=== PATIENT | male | born 1935 | race Caucasian/White ===

== ENCOUNTER → 2017-09-23 10:20 | Outpatient (CLI) | payer MEDICARE, OTHER, SELFPAY ==
--- NOTE | 2017-09-23 10:23 | RAD_ITS ---
STUDY: X-RAY - PELVIS AND RIGHT HIP REASON FOR EXAM: Male, 82 years old. Postop one year TECHNIQUE: Radiological exam, hip, unilateral, with pelvis when performed; 2 or 3 views. COMPARISON: June 17, 2017 pelvis x-ray FINDINGS: There is a non-specific bowel gas pattern. There are atherosclerotic vascular calcifications of the pelvic arteries. There is narrowing with cortical sclerosis and osteophyte formation of the sacroiliac joint consistent with degenerative osteoarthritic changes. Normal bilateral superior and inferior pubic rami. Normal pubic symphysis. Normal bilateral ischial tuberosities. There is a right hip arthroplasty with visualized heterotopic bone or soft tissue calcification. There is no evidence of change in the alignment. The alignment is in neutral position. There is mild narrowing of the left hip joint space. There is minimal acetabular spurring. There is degenerative change in the lumbar spine. RAD/Hip 2-3 Views with Pelvis IMPRESSION: Stable right hip arthroplasty no evidence of an acute fracture or significant change since prior study. Electronically Signed: Amanda Ramirez MD at 17:34 EDT Tel , Service support ,
== END ==
PROVIDERS: Family Provider Internal Medicine; PCP Internal Medicine; Visit Provider Orthopaedic Surgery
DX: M16.11 Unilateral primary osteoarthritis, right hip (principal)
CPT/HCPCS: 73502

== ENCOUNTER → 2017-11-07 14:42 | Outpatient (CLI) | payer MEDICARE, OTHER, SELFPAY ==
[2017-11-07 15:30] LABS: Absolute Lymphocyte Count 1.09 X10^3/ul (0.83-4.51); Absolute Neutrophil Count 2.5 X10^3/uL (2.0-7.7); Basophil# 0.01 X10^3/uL; Basophil% 0.2 % (0-1); Eosinophil# 0.08 X10^3/uL; Eosinophils% 1.9 % (0-5); Hematocrit 33.1 % (40-54); Hemoglobin 10.7 g/dl (13.0-16.5); Lymphocyte # 1.09 X10^3/ul (4.0); Lymphocyte % 26.3 % (19-41); Mean Corp Hgb Conc 32.3 g/gl (32-36); Mean Corpuscular Hgb 28.6 pg (27.0-32.0); Mean Corpuscular Volume 88.5 fL (80-94); Mean Platelet Vol. 10.5 fl (6.2-12.0); Monocyte# 0.42 X10^3/uL; Monocyte% 10.1 % (0-10); Neutrophil # 2.54 X10^3/uL (2.7-7.7); Neutrophil % 61.3 % (47-70); Platelet Count 258 K/mm3 (150-450); RBC Distribution Width CV 17.1 % (11.6-14.6); RBC Distribution Width SD 55.1 fl (35.1-43.9); Red Blood Count 3.74 M/mm3 (4.6-6.2); White Blood Count 4.2 K/mm3 (4.4-11.0)
[2017-11-07 15:34] LABS: POSITIVE COUNT NO; POSITIVE DIFFERENTIAL NO; POSITIVE MORPHOLOGY NO
[2017-11-07 16:01] LABS: T4 Total, Thyroxin 5.1 ug/dL (4.5-12.1); Thyroid Stim Hormone (TSH) 1.93 uIU/mL (0.358-3.74)
== END ==
PROVIDERS: Family Provider Internal Medicine; PCP Internal Medicine; Visit Provider Internal Medicine Cardiovascular Disease
DX: D64.9 Anemia, unspecified (principal)
CPT/HCPCS: 36415; 84436; 84443; 85025

== ENCOUNTER → 2017-11-18 09:55 | Outpatient (CLI) | payer MEDICARE, OTHER, SELFPAY ==
--- NOTE | 2017-11-18 09:59 | ECHOD_ITS ---
Reason For Study: DYSPNEA Procedure This was a 2D Doppler, Color Flow transthoracic echocardiogram. Exam performed portable in patient room. Left Ventricle Normal size and thickness. The estimated ejection fraction is 65 %. Stage 1 diastolic dysfunction. No regional wall motion abnormalities noted. Right Ventricle Normal size and thickness. Normal systolic function. Atria Normal left atrium. Normal right atrium. Normal atrial septum. Mitral Valve The mitral valve is structurally normal. No prolapse or stenosis seen. Trivial mitral valve insufficiency. Tricuspid Valve Normal tricuspid valve. Trivial tricuspid valve insufficiency. Right ventricular systolic pressure estimated to be 33 mmHg. Aortic Valve Trisinus/trileaflet aortic valve. Mild (1+) aortic valve insufficiency. Pulmonic Valve Normal pulmonic valve. Trivial pulmonic valve insufficiency. Great Vessels Moderately dilated aortic root. Normal arch. Normal inferior vena cava. Inferior vena cava collapse with sniff. Pericardium/Pleural No pericardial effusion. Medication 22 gauge I.V. with prn adaptor inserted into left arm. Diluted definity 5ml given slow IV push to enhance endocardial definition. MMode/2D Measurements & Calculations LVIDd: 4.9 cm IVSd: 1.2 cm Ao root diam: 4.8 cm LVIDs: 2.6 cm LVPWd: 1.0 cm RVDd: 4.1 cm FS: 48.2 % LAV(MOD-bp): 63.3 ml EDV(MOD-sp4): 165.5 ml EDV(MOD-sp2): 110.9 ml LAV(MOD-bp) Indexed: 31.7 ml/m2 ESV(MOD-sp4): 59.8 ml EF(MOD-sp2): 60.1 % LAV(MOD-sp2): 76.4 ml EF(MOD-sp4): 63.9 % LAV(MOD-sp4): 51.7 ml SV(MOD-sp4): 105.7 ml SV(MOD-sp2): 66.7 ml LA A4 area: 18.9 cm2 RA A4 area: 17.5 cm2 Doppler Measurements & Calculations MV E max hank: 83.1 cm/sec Lat Peak E' Hank: 7.0 cm/sec Med Peak E' Hank: 6.0 cm/sec MV A max hank: 104.6 cm/sec E/E' lat: 11.9 E/E' med: 13.8 MV E/A: 0.79 Ao V2 max: 140.4 cm/sec AI max hank: 454.9 cm/sec LV V1 max: 114.9 cm/sec Ao max P.9 mmHg AI max P.8 mmHg LV V1 max P.3 mmHg AI dec slope: 208.7 cm/sec2 AI P1/2t: 638.3 msec PA V2 max: 75.1 cm/sec PI end-d hank: 92.0 cm/sec TR max hank: 265.2 cm/sec TR max P.2 mmHg Interpretation Summary The estimated ejection fraction is 65 %. Stage 1 diastolic dysfunction. Trivial mitral valve insufficiency. Trivial tricuspid valve insufficiency. Right ventricular systolic pressure estimated to be 33 mmHg. Mild (1+) aortic valve insufficiency. Moderately dilated aortic root. The study was technically difficult. There is no comparison study available. Contrast injection was performed. Ordering Physician: Jaron Kellogg Referring Physician: SKIP LIANG Performed By: Shiela Akers, ANGEL, RVT
== END ==
PROVIDERS: Family Provider Internal Medicine; PCP Internal Medicine; Visit Provider Internal Medicine Cardiovascular Disease
DX: R00.2 Palpitations (principal); R94.31 Abnormal electrocardiogram [ECG] [EKG]
CPT/HCPCS: 93306; Q9957; A4216; C8929

== ENCOUNTER → 2017-12-03 07:20 | Outpatient (CLI) | payer MEDICARE, OTHER, SELFPAY ==
--- NOTE | 2017-12-03 07:22 | CT_ITS ---
STUDY: CT CHEST WITH CONTRAST REASON FOR EXAM: Male, 82 years old. Dilated aortic root. Dyspnea. History of testicular carcinoma. RADIATION DOSAGE (If Supplied By Facility): CTDIvol = ( 18.21 ) mGy, DLP = ( 458.75 ) mGycm TECHNIQUE: Transaxial imaging was performed following intravenous administration of 100 ml of Isovue 300 contrast material. Multiplanar coronal and sagittal images were reformatted. Individualized dose optimization techniques were used for this CT. COMPARISON: None. FINDINGS: Mild degree of bony increase markings at the lung bases suggestive of scarring. Increased linear markings are also seen in the right middle lobe with focal plaque formation along the lateral aspect of the right middle lobe suggestive of scarring. There is no demonstrated pleural abnormality. There are calcifications of the coronary arteries. Normal mediastinum. Normal hilar regions. Normal enhanced pulmonary arteries. There is dilatation of the descending aorta with a transverse dimension of 5.2 cm. There is demineralization of the thoracic spine. There is a 1.5 cm x 1.3 cm cyst in the medial aspect of the right lobe of the liver adjacent to the gallbladder fossa. This also evidence of a 2.7 cm x 1.9 cm cyst in the dome of the right lobe of the liver posteriorly as well as smaller cysts in the anterior aspect of the dome of the right lobe of the liver. Tiny gallstones are seen within the gallbladder lumen. CT/Chest WITH Contrast IMPRESSION: Dilated ascending aorta with a transverse dimension of 5.2 cm. Findings suggestive of scarring at the lung bases and lateral aspect of the right middle lobe. Electronically Signed: Isaiah Arevalo MD at 11:23 EDT Tel [phone], Service support ,
[2017-12-03 07:40] LABS: CREATININE FINGERSTICK 1.2 mg/dL (0.70-1.30)
== END ==
PROVIDERS: Family Provider Internal Medicine; PCP Internal Medicine; Visit Provider Internal Medicine Cardiovascular Disease
DX: I10 Essential (primary) hypertension (principal); D64.9 Anemia, unspecified; R00.2 Palpitations; I77.810 Thoracic aortic ectasia
CPT/HCPCS: 71260; Q9967

== ENCOUNTER → 2017-12-06 12:59 | Outpatient (CLI) | payer MEDICARE, OTHER, SELFPAY ==
--- NOTE | 2017-12-06 13:06 | CDU_ITS ---
Reason For Study: TIA Rt. Velocities/BP Lt. Velocities/BP Prox CCA 65/8 cm/sec. Prox CCA 96/12 cm/sec. Mid CCA 55/7 cm/sec. Mid CCA 63/9 cm/sec. Dist CCA 39/6 cm/sec. Dist CCA 49/8 cm/sec. Prox ICA 40/5 cm/sec. Prox ICA 76/15 cm/sec. Mid ICA 66/17 cm/sec. Mid ICA 66/18 cm/sec. Dist ICA 62/11 cm/sec. Dist ICA 85/20 cm/sec. Rt. ICA/CCA = 1.2. Lt. ICA/CCA = 1.34. Prox ECA 74/1 cm/sec. Prox ECA 84/2 cm/sec. Rt. Vert. 40/7 cm/sec. Lt. Vert. 52/10 cm/sec. Right Extracranial There is intimal thickening but no significant atherosclerotic plaque noted in the right common carotid artery. There is intimal thickening but no significant atherosclerotic plaque noted in the right internal carotid artery. There is intimal thickening but no significant atherosclerotic plaque noted in the right external carotid artery. Antegrade flow is noted in the right vertebral artery. Left Extracranial There is heterogeneous, smooth atherosclerotic plaque noted in the left common carotid artery. There is heterogeneous, irregular atherosclerotic plaque noted in the left internal carotid artery. There is heterogeneous, smooth atherosclerotic plaque noted in the left external carotid artery. Antegrade flow is noted in the left vertebral artery. Procedure Carotid Duplex 40248. Exam performed in department. Interpretation Summary No hemodynamically significant plague or stenosis bilateral internal carotids with minimal smooth plague on the left and <50% stenosis bilaterally. Normal flow bilateral external carotids Patent and antegrade vertebrals bilaterally. Ordering Physician: Jaron Kellogg Referring Physician: Isabelle Ratliff Performed By: Jeni Corrigan, TALIACS, RVT
== END ==
PROVIDERS: Family Provider Internal Medicine; PCP Internal Medicine; Visit Provider Internal Medicine Cardiovascular Disease
DX: R47.01 Aphasia (principal); D64.9 Anemia, unspecified; R00.2 Palpitations; I10 Essential (primary) hypertension; R29.818 Other symptoms and signs involving the nervous system
CPT/HCPCS: 93880

== ENCOUNTER → 2017-12-24 13:30 | Outpatient (CLI) | payer MEDICARE, OTHER, SELFPAY ==
--- NOTE | 2017-12-24 13:45 | STEWCON_ITS ---
Reason For Study: DYSPNEA/SOB Stress Results Protocol: Stress Echocardiogram Maximum Predicted HR: 139 bpm Target HR: 118 bpm% Maximum Pr edicted HR: 91 % DurationHeart Rate Stage (mm:ss) (bpm) BPCom ment BASELINE 61 130/78 5 ML DILUTED DEFINITY USED DURING STRESS KAYLA PROTOCOL- STAGE 1 3:00 10 1 144/70 KAYLA PROTOCOL- STAGE 2 2:21 12 6 / RECOVERY 73 130/78 Stress Duration: 5:21 mm:ss Maximum Stress HR: 126 bpm Baseline Echocardiogram Findings The estimated ejection fraction is 65 %. Stress Echo Wall motion Data Resting WMIntermediate WMStress WM Resting Wall Motion Wall Motion Stress No regional wall motion Basal anteroseptal: Mildly abnormalities noted. hypokinetic. Mid-Anterior : Hypokinetic. EKG Data Normal intervals are noted. The patient exercised according to the regular Kayla protocol for a total duration of 5:21. The maximum heart rate attained was 126 beats per minute. This was 90% of maximum predicted heart rate. The patient exercised into stage 2 of the Kayla protocol. During stress, there were no ST or T wave changes noted to suggest ischemia. No clinical angina was noted. No arrhythmias noted. Interpretation Summary The estimated ejection fraction is 65 %. Basal anteroseptal: Mildly hypokinetic Mid-Anterior : Hypokinetic Abnormal, adequate, treadmill echocardiogram. Positive for ischemia by echocardiographic criteria. The patient developed what appeared to be mid anterior and anteroseptal hypokinesis seen in 2 views at peak exercise. Decreased appropriate blood pressure response to exercise. Average exercise capacity for age. Test terminated due to dyspnea. Poor echo windows requiring Definity contrast agent may make interpretation more challenging. Final LVEF of 50%. Ordering Physician: Jaron Kellogg MD Referring Physician: Jaron Kellogg Performed By: Mary Huff RDCS
== END ==
PROVIDERS: Family Provider Internal Medicine; PCP Internal Medicine; Visit Provider Internal Medicine Cardiovascular Disease
DX: R06.02 Shortness of breath (principal); R06.00 Dyspnea, unspecified
CPT/HCPCS: 93017; 93350; Q9957; A4216; C8928

== ENCOUNTER → 2017-12-27 16:09 | Outpatient (CLI) | payer MEDICARE, OTHER, SELFPAY ==
--- NOTE | 2017-12-27 16:11 | RAD_ITS ---
STUDY: X-RAY CHEST REASON FOR EXAM: Male, 82 years old. Abnormal stress test TECHNIQUE: PA and lateral views of the chest. COMPARISON: None. FINDINGS: There are fibrotic changes of the right lung. There is no demonstrated pleural abnormality. Normal size heart. Normal mediastinum and leo. Normal visualized pulmonary arteries. There are calcified plaques of the aortic arch. Normal visualized thoracic spine. There is deformity of the right fifth rib which may be postsurgical. There is no demonstrated abnormality of the visualized soft tissue structures of the upper abdomen. RAD/Chest PA and Lateral IMPRESSION: Fibrotic changes of the right lung, particularly of the right lung base. Calcified plaques of the aortic arch. Deformity of the right fifth rib which may be postsurgical. No acute cardiopulmonary disease process is seen. Electronically Signed: Bull Riojas MD at 16:33 EDT , Service support ,
== END ==
PROVIDERS: Family Provider Internal Medicine; PCP Internal Medicine; Visit Provider Internal Medicine Cardiovascular Disease
DX: R94.39 Abnormal result of other cardiovascular function study (principal)
CPT/HCPCS: 71046

== ENCOUNTER 2018-01-07 06:58 | Day surgery (SDC) | payer MEDICARE, OTHER, SELFPAY ==
[2017-12-27 17:28] LABS: Hematocrit 32.4 % (40-54); Hemoglobin 10.8 g/dl (13.0-16.5); Mean Corp Hgb Conc 33.3 g/gl (32-36); Mean Corpuscular Hgb 29.9 pg (27.0-32.0); Mean Corpuscular Volume 89.8 fL (80-94); Mean Platelet Vol. 10.9 fl (6.2-12.0); Platelet Count 233 K/mm3 (150-450); RBC Distribution Width CV 15.9 % (11.6-14.6); RBC Distribution Width SD 51.4 fl (35.1-43.9); Red Blood Count 3.61 M/mm3 (4.6-6.2); Scan Indicated on CBC? Y/N NO; White Blood Count 3.7 K/mm3 (4.4-11.0)
[2017-12-27 17:40] LABS: Partial Thromboplast Time 24.4 Seconds (24.1-36.2); Prothrombin Time (Protime)PT. 13.6 SECONDS (11.7-14.9)
[2017-12-27 18:20] LABS: Anion Gap 5 (5-15); BUN 29 mg/dL (7-18); Calcium,Total 9.9 mg/dL (8.5-10.1); Chloride 106 mmol/L (98-107); Creatinine, Serum 1.38 mg/dL (0.70-1.30); EST Glomerular Filtration Rate 52 mL/min (>60); Est Glom Filt Rate - Afr Amer 63 mL/min (>60); Glucose 91 mg/dL (74-106); Potassium 5.3 mmol/L (3.5-5.1); Sodium Level 138 mmol/L (136-145)
[2018-01-06 09:52] VITALS: BMI 28.3
[2018-01-07 07:11] LABS: Prothrombin Time Fingerstick 13.5 SEC (11.9-14.4)
--- NOTE | 2018-01-07 09:12 | CL.D_ITS ---
Patient Name: TYRON COON Study Date: 01/07/2018 Performing: Jaron Kellogg MD Ht: 68.89 inches 175 cm : 1935 Wt: 191.8 lbs 87 kg Age: 83 Gender: male BSA: 2.03 PROCEDURE(S) PERFORMED VN96-GUS/COR/LV DC11-AO ROOT ANGIO WITH HEART CATH CLINICAL PROFILE AND INDICATIONS Indications: New Onset Angina <= 2 months, Suspected CAD, Pre-Operative Evaluation Heart Failure: None Stress/Imaging Stress Echocardiogram: Yes Result: Positive Intermediate RiskStress Echocardiogram : Positive Intermediate Risk Angina Classification Anginal Classification w/in 2 Weeks: CCS III CAD Presentations: Symptom unlikely to be ischemic. Comorbidities/Risk Factors: Hypertension Dyslipidemia Peripheral Arterial Disease CONCLUSIONS Non obstructive coronary arteries Normal LV size, wall motion,and systolic function Elevated Left Ventricular End Diastolic Pressure Aortic Root dilated RECOMMENDATIONS Risk factor modification Medical therapy vs. Surgical Intervention for aortic root; pt to meet with Dr Earl in 2 weeks. start Imdur 30mg po daily for HTN d/c brilinta No PCI or CABG required at this time. DESCRIPTION OF PROCEDURE The patient arrived to the procedure lab. The risks and benefits of the procedure as well as a full d escription of our services here and current unavailability of surgical backup were fully explained to the patient and/or their significant other prior to the catheterization. The Timeout was completed, verifying the correct patient and procedure. The patient's procedural site was prepped and draped in the usual fashion. Local anesthetic was given subcutaneously to left groin region with Lidocaine 2%. Using a modified Seldinger technique, arterial access was obtained via the left femoral artery, a 4Fr sheath was inserted Left Coronary Artery selective angiography was performed in multiple views usin g a 4 Fr. JL5 catheter. Right Coronary Artery selective angiography was then performed in multiple vi ews using a 4 Fr. 3DRC catheter. Left Ventriculography was performed in MCKEON projection using a 4 Fr. Pigtail catheter.The arterial sheath was pulled and manual compression applied until hemostasis is ac hieved. CORONARY ANGIOGRAPHY DOMINANCE: Right Dominant LEFT MAIN: 20 ostial % Stenosis LEFT ANTERIOR DECENDING ARTERY: Mild luminal irregularities less than 30% CIRCUMFLEX ARTERY: Mild luminal irregularities less than 30% RIGHT CORONARY ARTERY: Mild luminal irregularities less than 30% PROX RCA: 35 % Stenosis RT PDA: Proximal - Mild luminal irregularities less than 30% COMPLICATIONS No Complications PROCEDURE MEDICATIONS Oxygen: 2 L/min via nasal cannula Nitro 200 mcg IC 01/07/2018 08:55:36 IV Fluids: .9 NaCl IV started @ 200 ml/hr-500cc given 01/07/2018 08:10:26 SUMMARY OF HEMODYNAMIC DATA Time AIR REST ECG 07:28:19 AO 172/66 (104) SA 08:46:11 LV 168/-8, 14 08:54:26 LV 166/-8, 14 08:54:33 LVp 164/-12, 14 08:54:39 AOp 165/61 (99) 08:54:44 Signed By Jaron Kellogg MD On 01/07/2018 09:11:47 Jaron Kellogg MD
== END 2018-01-07 13:22 | disposition home or self-care (01) ==
PROVIDERS: Family Provider Internal Medicine; PCP Internal Medicine; Visit Provider Internal Medicine Cardiovascular Disease
DX: I25.10 Atherosclerotic heart disease of native coronary artery without angina pectoris (principal); I48.0 Paroxysmal atrial fibrillation; R94.39 Abnormal result of other cardiovascular function study; I44.0 Atrioventricular block, first degree; I71.2 Thoracic aortic aneurysm, without rupture; I35.8 Other nonrheumatic aortic valve disorders; I10 Essential (primary) hypertension; M35.3 Polymyalgia rheumatica; I73.9 Peripheral vascular disease, unspecified; D86.9 Sarcoidosis, unspecified; D64.9 Anemia, unspecified; M19.90 Unspecified osteoarthritis, unspecified site; Z79.82 Long term (current) use of aspirin; Z79.899 Other long term (current) drug therapy; Z85.47 Personal history of malignant neoplasm of testis; Z92.3 Personal history of irradiation; Z90.79 Acquired absence of other genital organ(s); Z95.820 Peripheral vascular angioplasty status with implants and grafts
CPT/HCPCS: 36415; 36416; 80048; 85027; 85610; 85730; 93458; 93567; J7030; C1769; C1894; Q9967

== ENCOUNTER → 2018-01-17 11:11 | Outpatient (CLI) | payer MEDICARE, OTHER, SELFPAY ==
[2018-01-17 12:04] LABS: International Normalized Ratio 1.1; Prothrombin Time (Protime)PT. 14.1 SECONDS (11.7-14.9)
== END ==
PROVIDERS: Family Provider Internal Medicine; PCP Internal Medicine; Visit Provider Internal Medicine Cardiovascular Disease
DX: I48.0 Paroxysmal atrial fibrillation (principal); Z79.01 Long term (current) use of anticoagulants
CPT/HCPCS: 36415; 85610

== ENCOUNTER 2018-01-31 10:12 | Outpatient (RCR) | payer MEDICARE, OTHER, SELFPAY ==
[2018-01-24 12:54] LABS: Prothrombin Time (Protime)PT. 13.5 SECONDS (11.7-14.9)
[2018-01-31 10:50] LABS: International Normalized Ratio 1.2; Prothrombin Time (Protime)PT. 15.3 SECONDS (11.7-14.9)
== END 2018-01-31 12:00 | disposition home or self-care (01) ==
LOC: LAB 10:12
PROVIDERS: Family Provider Internal Medicine; PCP Internal Medicine; Visit Provider Internal Medicine Cardiovascular Disease
DX: I48.0 Paroxysmal atrial fibrillation (principal); Z79.01 Long term (current) use of anticoagulants
CPT/HCPCS: 36415; 85610

== ENCOUNTER 2018-02-18 13:13 | Outpatient (RCR) | payer MEDICARE, OTHER, SELFPAY ==
[2018-02-18 13:58] LABS: International Normalized Ratio 1.6; Prothrombin Time (Protime)PT. 18.9 SECONDS (11.7-14.9)
== END 2018-02-18 15:00 | disposition home or self-care (01) ==
LOC: LAB 13:13
PROVIDERS: Family Provider Internal Medicine; PCP Internal Medicine; Visit Provider Internal Medicine Cardiovascular Disease
DX: I48.0 Paroxysmal atrial fibrillation (principal); Z79.01 Long term (current) use of anticoagulants
CPT/HCPCS: 36415; 85610

== ENCOUNTER 2018-04-04 10:50 | Outpatient (RCR) | payer MEDICARE, OTHER, SELFPAY ==
[2018-03-21 11:26] LABS: International Normalized Ratio 2.2; Prothrombin Time (Protime)PT. 24.5 SECONDS (11.7-14.9)
[2018-04-04 12:19] LABS: International Normalized Ratio 1.9; Prothrombin Time (Protime)PT. 21.4 SECONDS (11.7-14.9)
== END 2018-04-04 12:00 | disposition home or self-care (01) ==
LOC: LAB 10:50
PROVIDERS: Family Provider Internal Medicine; PCP Internal Medicine; Visit Provider Internal Medicine Cardiovascular Disease
DX: I48.0 Paroxysmal atrial fibrillation (principal); Z79.01 Long term (current) use of anticoagulants
CPT/HCPCS: 36415; 85610

== ENCOUNTER → 2018-04-10 09:49 | Outpatient (CLI) | payer MEDICARE, OTHER, SELFPAY ==
--- NOTE | 2018-04-10 13:32 | PFTCOMP ---
COMPLETE PULMONARY FUNCTION TEST INTERPRETATION Brief HPI: Patient is an 83 year old male, currently under the care of Dr. Kellogg, who presents to [facility] for complete pulmonary function tests secondary to diagnosis of dyspnea on exertion. Respiratory therapist reports good effort and reproducible results. Interpretation: Forced expiration spirometry shows no large airways obstructive ventilatory defect with an FEV1 of 90% predicted. There is no significant bronchodilator response by strict ATS criteria. Spirograms are of good quality and plateau slowly, indicating slowly emptying areas of the lungs. The respiratory flow volume loop shows decreased expiratory flow rates at high lung volumes consistent with small airways obstruction. Lung volumes by body plethysmography show a normal total lung capacity at 6 L, 103% predicted. All other lung volumes are within normal limits. Diffusion capacity by carbon monoxide is normal at 87% predicted. The airway resistance is slightly elevated. No previous pulmonary function tests were available for review. Impression: These pulmonary function tests are grossly within normal limits. However, there are some subtle signs of small airways obstruction. Consider bronchoprovocation study if asthma is a consideration.
== END ==
PROVIDERS: Family Provider Internal Medicine; PCP Internal Medicine; Referring Provider Internal Medicine Cardiovascular Disease; Visit Provider Internal Medicine Cardiovascular Disease
DX: I48.0 Paroxysmal atrial fibrillation (principal); R06.09 Other forms of dyspnea
CPT/HCPCS: 94060; 94726; 94729

== ENCOUNTER 2018-04-25 10:09 | Outpatient (RCR) | payer MEDICARE, OTHER, SELFPAY ==
[2018-04-11 12:03] LABS: International Normalized Ratio 2.1; Prothrombin Time (Protime)PT. 23.9 SECONDS (11.7-14.9)
[2018-04-25 10:43] LABS: International Normalized Ratio 2.1; Prothrombin Time (Protime)PT. 23.8 SECONDS (11.7-14.9)
== END 2018-04-25 12:00 | disposition home or self-care (01) ==
LOC: LAB 10:09
PROVIDERS: Family Provider Internal Medicine; PCP Internal Medicine; Referring Provider Internal Medicine Cardiovascular Disease; Visit Provider Internal Medicine Cardiovascular Disease
DX: I48.0 Paroxysmal atrial fibrillation (principal); Z79.01 Long term (current) use of anticoagulants
CPT/HCPCS: 36415; 85610

== ENCOUNTER 2018-06-06 10:23 | Outpatient (RCR) | payer MEDICARE, OTHER, SELFPAY ==
[2018-05-16 15:48] LABS: International Normalized Ratio 1.8; Prothrombin Time (Protime)PT. 20.6 SECONDS (11.7-14.9)
[2018-05-23 12:51] LABS: International Normalized Ratio 1.9; Prothrombin Time (Protime)PT. 21.9 SECONDS (11.7-14.9)
[2018-06-06 11:01] LABS: Prothrombin Time (Protime)PT. 31.3 SECONDS (11.7-14.9)
[2018-06-06 13:10] LABS: Anion Gap 6 (5-15); BUN 25 mg/dL (7-18); BUN/Creat Ratio 18.9 RATIO (10-20); Calcium,Total 9.9 mg/dL (8.5-10.1); Chloride 106 mmol/L (98-107); Creatinine, Serum 1.32 mg/dL (0.70-1.30); EST Glomerular Filtration Rate 55 mL/min (>60); Est Glom Filt Rate - Afr Amer 67 mL/min (>60); Glucose 57 mg/dL (74-106); Potassium 5.3 mmol/L (3.5-5.1); Sodium Level 138 mmol/L (136-145)
== END 2018-06-06 11:16 | disposition home or self-care (01) ==
LOC: LAB 10:23
PROVIDERS: Family Provider Internal Medicine; PCP Internal Medicine; Referring Provider Internal Medicine Cardiovascular Disease; Visit Provider Internal Medicine Cardiovascular Disease
DX: I48.0 Paroxysmal atrial fibrillation (principal); Z79.01 Long term (current) use of anticoagulants
CPT/HCPCS: 36415; 80048; 85610

== ENCOUNTER 2018-06-27 09:59 | Outpatient (RCR) | payer MEDICARE, OTHER, SELFPAY ==
[2018-03-21 10:56] VITALS: BMI 28.9
[2018-06-20 11:20] LABS: International Normalized Ratio 2.1; Prothrombin Time (Protime)PT. 23.5 SECONDS (11.7-14.9)
[2018-06-27 11:22] LABS: International Normalized Ratio 2.4; Prothrombin Time (Protime)PT. 26.1 SECONDS (11.7-14.9)
--- OUTSIDE RECORDS SUMMARY | 2018-08-06 01:04 | XMS RPT_ITS ---
:1935 Author Organization OHIP Support Name Relationship Address Phone CAVINDISH, JACINDA Unavailable [address] + [place] [address] R Unavailable Unavailable Unavailable CAVINDISH, JACINDA Unavailable [address] + [place] [address] R Unavailable Unavailable Unavailable CAVINDISH, JACINDA Unavailable [address] + [place] [address] R Unavailable Unavailable Unavailable CAVINDISH, JACINDA Unavailable [address] + [place] [address] R Unavailable Unavailable Unavailable CAVINDISH, JACINDA Unavailable [address] + [place] [address] R Unavailable Unavailable Unavailable CAVINDISH, JACINDA Unavailable [address] + [place] [address] R Unavailable Unavailable Unavailable CAVINDISH, JACINDA Unavailable [address] + [place] [address] R Unavailable Unavailable Unavailable CAVINDISH, JACINDA Unavailable [address] + [place] [address] R Unavailable Unavailable Unavailable CAVINDISH, JACINDA Unavailable [address] + [place] [address] R Unavailable Unavailable Unavailable CAVINDISH, JACINDA Unavailable [address] + [place] [address] R Unavailable Unavailable Unavailable CAVINDISH, JACINDA Unavailable [address] + [place] [address] R Unavailable Unavailable Unavailable CAVINDISH, JACINDA Unavailable [address] + [place] [address] R Unavailable Unavailable Unavailable CAVINDISH, JACINDA Unavailable [address] + [place] [address] R Unavailable Unavailable Unavailable CAVINDISH, JACINDA Unavailable [address] + [place] [address] R Unavailable Unavailable Unavailable CAVINDISH, JACINDA Unavailable [address] + [place] [address] R Unavailable Unavailable Unavailable CAVINDISH, JACINDA Unavailable [address] + [place] [address] R Unavailable Unavailable Unavailable CAVINDISH, JACINDA Unavailable [address] + [place] [address] R Unavailable Unavailable Unavailable CAVINDISH, JACINDA Unavailable [address] + [place] [address] R Unavailable Unavailable Unavailable CAVINDISH, JACINDA Unavailable [address] + [place] [address] R Unavailable Unavailable Unavailable CAVINDISH, JACINDA Unavailable [address] + [place] [address] R Unavailable Unavailable Unavailable CAVINDISH, JACINDA Unavailable [address] + [place] [address] R Unavailable Unavailable Unavailable CAVINDISH, JACINDA Unavailable [address] + [place] [address] R Unavailable Unavailable Unavailable CAVINDISH, JACINDA Unavailable [address] + [place] [address] R Unavailable Unavailable Unavailable CAVINDISH, JACINDA Unavailable [address] + [place] [address] R Unavailable Unavailable Unavailable CAVINDISH, JACINDA Unavailable [address] + [place] [address] R Unavailable Unavailable Unavailable CAVINDISH, JACINDA Unavailable [address] + [place] [address] R Unavailable Unavailable Unavailable CAVINDISH, JACINDA Unavailable [address] + [place] [address] R Unavailable Unavailable Unavailable CAVINDISH, JACINDA Unavailable [address] + [place] [address] R Unavailable Unavailable Unavailable KATHRIN COLT GALO AYUSH Unavailable [address] + [place] [address] CAVINDISH, JACINDA Unavailable [address] + [place] [address] R Unavailable Unavailable Unavailable KATHRIN COLT GALO AYUSH Unavailable [address] + [place] [address] CAVINDISH, JACINDA Unavailable [address] + [place] [address] GREGORY, KATHRIN Unavailable [address] + [place] [address] R Unavailable Unavailable Unavailable CAVINDISH, JACINDA Unavailable [address] + [place] [address] R Unavailable Unavailable Unavailable R Unavailable Unavailable Unavailable CAVINDISH, JACINDA Unavailable [address] + [place] [address] GREGORY, KATHRIN Unavailable [address] + [place] [address] R Unavailable Unavailable Unavailable Care Team Providers Name Role Phone Henrry Moreland Attending Unavailable Talampas, Skip Referring Unavailable Talampas, Skip Primary Care Unavailable Jaron Kellogg Attending Unavailable Jaron Kellogg Referring Unavailable Talampas, Skip Primary Care Unavailable JUAN M GONZALEZ Consulting Unavailable Henrry Moreland Attending Unavailable Talampas, Skip Primary Care Unavailable Blanca Zaragoza Attending Unavailable Jaron Kellogg Attending Unavailable Talampas, Skip Referring Unavailable Talampas, Skip Primary Care Unavailable Jaron Kellogg Attending Unavailable Jaron Kellogg Referring Unavailable Talampas, Skip Primary Care Unavailable Jaron Kellogg Attending Unavailable Jaron Kellogg Referring Unavailable Talampas, Skip Primary Care Unavailable Jaron Kellogg Attending Unavailable Jaron Kellogg Referring Unavailable Talampas, Skip Primary Care Unavailable Jaron Kellogg Attending Unavailable Jaron Kellogg Referring Unavailable Talampas, Skip Primary Care Unavailable Jaron Kellogg Attending Unavailable Jaron Kellogg Referring Unavailable Talampas, Skip Primary Care Unavailable Jaron Kellogg Attending Unavailable Jaron Kellogg Attending Unavailable Valdez, Jaron Referring Unavailable Talampas, Skip Primary Care Unavailable Jaron Kellogg Attending Unavailable Talampas, Skip Referring Unavailable Talampas, Skip Primary Care Unavailable Jaron Kellogg Attending Unavailable Talampas, Skip Referring Unavailable Talampas, Skip Primary Care Unavailable Jaron Kellogg Attending Unavailable Kellogg, Jaron Referring Unavailable Talampas, Skip Primary Care Unavailable Jaron Kellogg Attending Unavailable Jaron Kellogg Referring Unavailable Talampas, Skip Primary Care Unavailable Blanca Zaragoza Attending Unavailable Aaron Barrientos Attending Unavailable Jaron Kellogg Attending Unavailable Kellogg, Jaron Referring Unavailable Talampas, Skip Primary Care Unavailable Jaron Kellogg Attending Unavailable Jaron Kellogg Attending Unavailable Kellogg, Jaron Referring Unavailable Talampas, Skip Primary Care Unavailable Jaron Kellogg Attending Unavailable Jaron Kellogg Attending Unavailable Kellogg, Jaron Referring Unavailable Talampas, Skip Primary Care Unavailable Jaron Kellogg Attending Unavailable Jaron Kellogg Attending Unavailable Jaron Kellogg Referring Unavailable Talampas, Skip Primary Care Unavailable Jaron Kellogg Attending Unavailable Talampas, Skip Referring Unavailable Talampas, Skip Primary Care Unavailable Chandana Corrigan Attending Unavailable Jaron Kellogg Attending Unavailable Kellogg, Jaron Referring Unavailable Talampas, Skip Primary Care Unavailable Jaron Kellogg Attending Unavailable Kellogg, Jaron Referring Unavailable Talampas, Skip Primary Care Unavailable Mateus Yao Attending Unavailable Kellogg, Jaron Referring Unavailable Jaron Kellogg Attending Unavailable Kellogg, Jaron Referring Unavailable Talampas, Skip Primary Care Unavailable JUAN M GONZALEZ Consulting Unavailable Jaron Kellogg Attending Unavailable Valdez, Jaron Referring Unavailable Talampas, Skip Primary Care Unavailable JUAN M GONZALEZ Consulting Unavailable LAHORRAELGIN A Attending Unavailable TALAMPAS, SKIP D Referring Unavailable LAHORRA, ELGIN A Referring Unavailable LAHORRA, ELGIN A Attending Unavailable TALAMPAS, SKIP D Referring Unavailable CITLALLI GARRETT (BOARD CATCHER) Attending Unavailable MARQUISMONIKA Schulz (AUTOMOTIVE SOFTWARE ENGINEER) Attending Unavailable LAHORRA, ELGIN Amin Attending Unavailable TALAMPAS, SKIP Referring Unavailable TALAMPAS, SKIP Primary Care Unavailable LAHORRA, ELGIN A Referring Unavailable TALAMPAS, SKIP Primary Care Unavailable LAHORRA, ELGIN Amin Attending Unavailable TALAMPAS, SKIP Referring Unavailable TALAMPAS, SKIP Primary Care Unavailable PROBLEMS PROBLEMS DATE TYPE CONDITION / CODE ATTENDING STATUS SOURCE Unknown I48.0 - Paroxysmal Jaron Kellogg Active [facility] atrial fibrillation / Community I48.0(ICD-10) Hospital Repository Active Encounter for LAHORRA, Active [facility] 8 screening for other ELGIN A [facility] Other disorder / [place] Z13.89(ICD-10) Repository Unknown R06.09 - Other forms Mateus Yao Active [facility] of dyspnea / Community R06.09(ICD-10) Hospital Repository Unknown I71.2 - Thoracic Jaron Kellogg Active [place] 8 aortic aneurysm, Community without rupture / Hospital I71.2(ICD-10) Repository Unknown Z79.01 - correction Jaron Kellogg Active [facility] (current) use of [facility] anticoagulants / Hospital Z79.01(ICD-10) Repository Active Thoracic aortic LAHORRA, Active [facility] aneurysm, without [facility] Other rupture / [place] I71.2(ICD-10) Repository Admitting Unknown / UNK(Unknown) LAHORRA, Active [facility] 8 diagnosis [facility] Repository Unknown R94.39 - Abnormal Jaron Kellogg Active [place] 8 result of other [facility] cardiovascular Hospital function study / Repository R94.39(ICD-10) Unknown R94.31 - Abnormal Jaron Kellogg Active [facility] 8 electrocardiogram Community [ECG] [EKG] / Hospital R94.31(ICD-10) Repository Unknown R00.2 - Palpitations / Jaron Kellogg Active [place] 8 R00.2(ICD-10) [facility] Hospital Repository Unknown D64.9 - Anemia, Jaron Kellogg Active [facility] unspecified / Community D64.9(ICD-10) Hospital Repository Unknown I10 - Essential Jaron Kellogg Active [place] [facility] (primary) hypertension Community / I10(ICD-10) Hospital Repository Unknown 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, right Hospital hip / M16.11(ICD-10) Repository 03/27/201 Unknown Z96.641 - Presence 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, [address] PROTHROMBIN TIME W/INR Collected: 06/20/2018 Status: F Source: [place] 10:22 AM [facility] REPOSITORY TYPE CODE TESTS RESULT OUT OF RANGE REFERENCE UNITS LAB L300.4150 11.7-14.9 SECONDS High PROTIME 23.5 LAB L300.4200 Normal INR 2.1 Performed By: #### [id number] #### [facility] [address] [place], [address] PROGRESS Observed: 06/18/2018 Status: COMPLETED Source: [place] 11:20 AM [facility] REPOSITORY O ID: [id number] Author: Elgin Carvajal Service: (none) Author Type: Physician Type: Progress Notes Filed: 06/18/2018 11:25 AM Note Text: Tyron Coon returns today to discuss results of his most recent serial surveillance CT scan the chest performed for evaluation of an ascending aortic aneurysm. His last seen by me in January at which time a CT scan from [facility] performed in November was reviewed. That CT had shown the ascending aorta measured 5.2 cm in maximum dimension. This is a setting of history of hypertension. He also has had recent stress testing, which was a false positive demonstrated after a normal cardiac catheterization was performed. Echocardiography demonstrated a trileaflet aortic valve with mild AI, normal LV function, no other valvular abnormalities. He has history of atrial fibrillation for which has been anticoagulant. His most recent CT performed on June 16 has been reviewed by me and compared to the study performed in November. This shows an unchanged dilatation of the ascending aorta measured 5.27 m maximum dimension which tapers off to relatively normal dimensions in the distal ascending aorta and proximal arch. He returns today doing well. He does note persistent exertional dyspnea. I have reviewed Heart Catherization, 2D echocardiogram, CT of Chest, Stress Test and Radiology. On examination, he appears well and is breathing comfortably. Vitals signs are BP 126/80 (BP Site: Left Arm, BP Position: Sitting) Pulse 73 Resp 18 Ht 5' 8.5 (1.74 m) Wt 197 lb (89.4 kg) SpO2 98% BMI 29.52 kg/m? . There is no JVD. No cervical or supraclavicular adenopathy is palpated. The chest is symmetrical without deformity. Breath sounds are clear bilaterally. The cardiac rhythm is regular. There is a very soft early systolic murmur.. The carotid, subclavian, and radial pulses are 2+ and equal bilaterally. The abdomen is soft and non-tender. There are no abdominal masses. There is no hepatojugular reflux. There is no pretibial edema. There is no clubbing or cyanosis. In summary, Tyron Coon has an ascending aortic aneurysm which is stable dimensions over the past 6 months at 5.2 cm in maximum dimension. He has a normal underlying aortic valve. He has no coronary disease. I explained to him that I do not think we have a solid indication for surgical resection replacement ascending aorta in that the maximum dimension is under 5.5 cm, he has no high-risk features, and he is 83 years old with some other medical issues. I'm recommending continued surveillance with repeat CT scan to be performed in one year. Reminded to comply was an Intense regimen. Reminded to avoid heavy lifting which involves a Valsalva maneuver. His been reminded to seek immediate medical attention should he have severe chest or back pain and to notify his caregivers that he has an ascending aneurysm. Elgin Carvajal MD CNOV Observed: 06/18/2018 Status: COMPLETED Source: [place] 11:00 AM [facility] REPOSITORY Office Visit (AGVASACC) TYRON COON ([id number]) 1935 M NFR Date Time Provider Department 06/18/18 11:00 AM ELGIN CAVRAJAL During your visit today, we recorded the following information about you: Pulse Respiration Blood pressure Weight 73/minute 18/minute 126/80 89.4 kg Height 1.74 m Chris Avalos APRN.CNP 06/18/2018 11:17 AM Addendum You have a dilated ascending aorta. Surgical repair is not indicated at this time. We recommend the following: Continue to monitor the aortic size with repeat CT scan to be repeated in 1 year. Continue to monitor your blood pressure and take your blood pressure medications as prescribed. Please avoid strenuous heavy lifting that involves bearing down. (Think of [employer] weight learning and development manager clean jerk type maneuver.) Should you have sudden onset of severe chest or back pain, go to the nearest emergency room and tell your caregivers that you have a dilated aorta. Elgin Carvajal MD 06/18/2018 11:25 AM Signed Tyron Coon returns today to discuss results of his most recent serial surveillance CT scan the chest performed for evaluation of an ascending aortic aneurysm. His last seen by me in January at which time a CT scan from [facility] performed in November was reviewed. That CT had shown the ascending aorta measured 5.2 cm in maximum dimension. This is a setting of history of hypertension. He also has had recent stress testing, which was a false positive demonstrated after a normal cardiac catheterization was performed. Echocardiography demonstrated a trileaflet aortic valve with mild AI, normal LV function, no other valvular abnormalities. He has history of atrial fibrillation for which has been anticoagulant. His most recent CT performed on June 16 has been reviewed by me and compared to the study performed in November. This shows an unchanged dilatation of the ascending aorta measured 5.27 m maximum dimension which tapers off to relatively normal dimensions in the distal ascending aorta and proximal arch. He returns today doing well. He does note persistent exertional dyspnea. I have reviewed Heart Catherization, 2D echocardiogram, CT of Chest, Stress Test and Radiology. On examination, he appears well and is breathing comfortably. Vitals signs are BP 126/80 (BP Site: Left Arm, BP Position: Sitting) Pulse 73 Resp 18 Ht 5' 8.5 (1.74 m) Wt 197 lb (89.4 kg) SpO2 98% BMI 29.52 kg/m? . There is no JVD. No cervical or supraclavicular adenopathy is palpated. The chest is symmetrical without deformity. Breath sounds are clear bilaterally. The cardiac rhythm is regular. There is a very soft early systolic murmur.. The carotid, subclavian, and radial pulses are 2+ and equal bilaterally. The abdomen is soft and non-tender. There are no abdominal masses. There is no hepatojugular reflux. There is no pretibial edema. There is no clubbing or cyanosis. In summary, Tyron Coon has an ascending aortic aneurysm which is stable dimensions over the past 6 months at 5.2 cm in maximum dimension. He has a normal underlying aortic valve. He has no coronary disease. I explained to him that I do not think we have a solid indication for surgical resection replacement ascending aorta in that the maximum dimension is under 5.5 cm, he has no high-risk features, and he is 83 years old with some other medical issues. I'm recommending continued surveillance with repeat CT scan to be performed in one year. Reminded to comply was an Intense regimen. Reminded to avoid heavy lifting which involves a Valsalva maneuver. His been reminded to seek immediate medical attention should he have severe chest or back pain and to notify his caregivers that he has an ascending aneurysm. Elgin Carvajal MD Referring Provider: SKIP RATLIFF [[id number]] Allergies As of Date: 06/18/2018 Noted Allergy Reaction AMOXICILLIN 06/01/2005 4 - Hives SULFA (SULFONAMIDE ANTIBIOTICS) 10/17/2007 2 - Rash Comments: Aching and shaking. LISINOPRIL 03/01/2011 2 - Rash Comments: was causing eczema reaction PENICILLINS 03/19/2017 2 - Rash PLAVIX (CLOPIDOGREL BISULFATE) 06/01/2005 Comments: itch Date Reviewed: 06/18/2018 Reviewed by: Caitlin Read LPN - Fully Assessed Reason for Visit: Thoracic Aortic Aneurysm [Other] Cmt: Tyron is here to review 06/16/18 CTA gated chest. Reason For Visit History Recorded Primary Visit Diagnosis:Screening for nephropathy [Z13.89] Other Visit Diagnoses:Thoracic aortic aneurysm without rupture (HCC) [I71.2] Ascending aortic aneurysm (HCC) [I71.2] Order(s):CREATININE BLD [SQCRET] Order #: [id number] FUTURE CTA CHEST (GATED) WO/W IVCON [[id number]] Order #: [id number] FUTURE Prescriptions as of 06/18/2018 Sig: ALBUTEROL SULFATE HFA 90 MCG/* Inhale 2 Puffs as instructed * ASPIRIN 81 MG TABLET,DELAYED * Take 81 mg by mouth once mary* FEOSOL ORAL Take 1 tablet by mouth once d* FLUOCINONIDE 0.05 % TOPICAL O* APPLY TO WORST AREAS OR MORE * ISOSORBIDE MONONITRATE ER 30 * Take 30 mg by mouth once mary* * CLARITIN 10 MG TABLET Take one(1) tablet daily as n* METOPROLOL TARTRATE 25 MG TAB* Take 25 mg by mouth once mary* * MULTIVITAMIN TABLET Take one(1) tablet daily. * FISH OIL 1,000 MG CAPSULE one capsule daily WARFARIN 2.5 MG TABLET Take 2.5 mg by mouth daily as* AMLODIPINE 5 MG TABLET Take 1 tablet by mouth once d* Patient not taking: Reported on 05/22/2018 Problem List As Of Date 06/18/2018 Noted Resolved Diverticulosis of colon (without mention of hem* 06/02/2013 COMPLIC-RESPIR SYST [997.3] 03/29/2008 Sarcoidosis [D86.9] More... More... Essential hypertension [I10] More... Diarrhea [R19.7] 06/02/2013 Benign neoplasm of colon [D12.6] More... OPEN WOUND SITE NOS [T14.8XXA] INVALID FOR*03/29/2008 Other malignant neoplasm of skin, site unspecif*INVALID FOR* More... SOLAR LENGINES///DYSCHROMIA OTHER [L81.9] INVALID FOR*03/29/2008 DERMATITIS NOS [L25.9] INVALID FOR*03/29/2008 XEROSIS///SEBACEOUS GLAND DIS NEC [L73.8] INVALID FOR*03/29/2008 OTHER ATOPIC DERMATITIS [L20.89] INVALID FOR*03/29/2008 PRURITIC DISORDER NOS [L29.9] INVALID FOR*03/29/2008 EXCORIATION///SUPERFICIAL INJURY NEC [T07.XXXA] INVALID FOR*03/29/2008 Routine General Medical Examination at a Health*INVALID FOR*06/02/2013 More... Malignant neoplasm of other and unspecified wendi*INVALID FOR* More... Psychosexual Dysfunction with Inhibited Sexual *INVALID FOR* More... OVERWEIGHT [E66.3] INVALID FOR* More... Edema [R60.9] INVALID FOR* More... DERMATITIS NOS [L25.9] INVALID FOR*01/26/2009 Disturbance of skin sensation [R20.9] INVALID FOR*06/02/2013 Herpes zoster without mention of complication [*INVALID FOR*06/02/2013 Pyoderma, unspecified [L08.0] INVALID FOR*06/02/2013 PERIPH VASCULAR DIS NOS [I73.9] INVALID FOR* Hyperlipidemia [E78.5] INVALID FOR* More... 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 Macular hole, right eye [H35.341] INVALID FOR* Vitreous degeneration of left eye [H43.812] INVALID FOR* Neoplasm of Uncertain Behavior(NUB) of skin [D4*INVALID FOR* Actinic skin damage [L57.8] INVALID FOR* Solar lentigo [L81.4] INVALID FOR*06/02/2013 Other seborrheic keratosis [L82.1] INVALID FOR* Chronic anemia [D64.9] INVALID FOR* PMR (polymyalgia rheumatica) (HCC) [M35.3] INVALID FOR*06/24/2017 More... Atrial arrhythmia [I49.8] INVALID FOR* Other instructions from your clinician: You have a dilated ascending aorta. Surgical repair is not indicated at this time. We recommend the following: Continue to monitor the aortic size with repeat CT scan to be repeated in 1 year. Continue to monitor your blood pressure and take your blood pressure medications as prescribed. Please avoid strenuous heavy lifting that involves bearing down. (Think of [employer] weight learning and development manager clean jerk type maneuver.) Should you have sudden onset of severe chest or back pain, go to the nearest emergency room and tell your caregivers that you have a dilated aorta. Level of Service: EST PATIENT VISIT LEVEL 3 [[id number]] Follow-up and Disposition History Recorded Letter Text Encounter Status:Closed by ELGIN CARVAJAL MD on 06/18/18 CTA CHEST (GATED) Observed: 06/16/2018 Status: F Source: [facility] WO/W IV CON 10:58 AM [facility]ALTH SYSTEM REPOSITORY Performed at [facility] APPROVED BY: Justino Workman MD EXAM TITLE: EKG GATED CT ANGIOGRAPHY OF THE THORACIC AORTA WITHOUT AND WITH INTRAVENOUS CONTRAST DATE: 06/16/2018 10:54 COMPARISON: Outside CT of the chest dated 12/03/2017. CLINICAL INDICATION/HISTORY: The patient has a known thoracic aortic aneurysm. TECHNIQUE: EKG gated helical scanning of the heart was obtained without intravenous contrast. Transaxial images are reconstructed at 2.5 mm intervals. Subsequently the patient received a rapid intrav enous bolus of iodinated contrast and EKG helical scanning was obtained from the basilar neck through the adrenal glands. Transaxial images reconstructed at 0.625 as well as 2.5 mm intervals. In addit ion sagittal and coronal reconstructed images are presented. 2-D and 3-D reconstruction and vessel analysis was performed at a separate workstation. 3-D shaded surface and MIP images as well as curved multiplanar reconstructed images are presented. Images are viewed with mediastinal and lung windows. CT Radiation dose: Integrated Dose-length Product (DLP) for this visit = 2736.30 mGy*cm. CT Dose Reduction Employed: Automated exposure control (AEC) Contrast: 100 cc of Omnipaque 350 IV Number of images: 1426 FINDINGS: There is again noted to be aneurysmal dilatation of the ascending thoracic aorta. There is no evidence of dissection. The thoracic aorta has measurements as follows: Sinus of Valsalva: 4.7 x 4.5 cm. Sinotubular junction: 4.1 x 3.6 cm Ascending thoracic aorta: 4.8 x 4.8 cm Proximal aortic arch: 4.7 x 4.4 cm Mid aortic arch: 4.5 x 3.9 cm Distal aortic arch: 3.2 x 3.1 cm. Proximal descending thoracic aorta 3.5 x 3.9 cm Mid descending thoracic aorta: 3.1 x 3.3 cm Distal descending thoracic aorta 2.6 x 2.6 cm The innominate artery is widely patent. The left common carotid arises directly from the aortic arch. The visualized portions of the right and left subclavian arteries are widely patent. The proximal right common carotid artery is tortuous. The visualized portions of the celiac axis, superior mesenteric artery and the right renal artery are unremarkable. The pulmonary artery measures 2.9 cm in diameter. The pulmonary arteries show no evidence of filling defect or abrupt cutoff. There is no evidence of cardiomegaly. There is no pericardial effusion. There are coronary artery calcifications. There are some very small mediastinal lymph nodes which are below the size of clinical concern. No other lymphadenopathy is noted. There is some slight irregularity scar in the lateral aspect of the right middle lobe. This is adjacent to an area of deformity involving the right fifth rib. This is most likely secondary to prior tr auma or surgery. No pulmonary nodules, masses, infiltrates or effusions are identified. There are at least 6 sharply marginated low-attenuation structures within both lobes liver. These are unchanged from prior study. The largest in the right lobe measures 2.3 x 1.8 cm. The largest on t he left lobe measures 2.1 x 1.7 cm. These have measurements consistent with fluid attenuation and are most consistent with hepatic cysts. The remainder of the visualized portions of the liver, spleen, pancreas, adrenal glands and left kidney are within normal limits. The suture margin low-attenuation structure in the cortex of the right kidney measuring 1.0 cm in diameter. This measures water density and is most consistent with renal cyst. IMPRESSION: 1. Aneurysmal dilatation of the ascending thoracic aorta as described above. The aneurysm has maximum dimensions of 4.8 x 4.8 cm in the ascending thoracic aorta. There is no evidence of dissection. 2. Coronary artery calcifications. 3. Scarring in the lateral aspect of the right middle lobe 4. Stable appearance to multiple hepatic cysts. 5. Stable appearance to small probable right renal cyst. 6. Otherwise negative EKG gated CT angiography of the thoracic aorta. PROTHROMBIN TIME W/INR Collected: 06/06/2018 Status: F Source: [place] 10:29 AM [facility] REPOSITORY TYPE CODE TESTS RESULT OUT OF RANGE REFERENCE UNITS LAB L300.4150 11.7-14.9 SECONDS High PROTIME 31.3 LAB L300.4200 Normal INR 3.0 Performed By: #### L300.3900 #### [facility] [address] [place] [address]. [place], [address] BASIC METABOLIC Collected: 06/06/2018 Status: F Source: [place] PROFILE (BMP) 10:29 AM [facility] REPOSITORY Order Comment: [facility] TYPE CODE TESTS RESULT OUT OF RANGE REFERENCE UNITS LAB L501.0100 74-106 mg/dL Low GLU 57 Result Comment: Please note revised GLUCOSE reference range effective 2017. LAB L501.1000 7-18 mg/dL High BUN 25 LAB L501.1100 0.70-1.30 mg/dL High CREAT,SERUM 1.32 Result Comment: The validity of the calculated GFR AND GFRAA in patients over 70 years has not been determined. Clinical correlation is essential. LAB L501.1110 >60 mL/min Low EST GFR 55 Result Comment: Non- GFR Calc LAB L501.1115 >60 mL/min Normal EST GFR - AA 67 Result Comment: GFR Calc LAB L501.1300 10-20 RATIO Normal BUN/CRE 18.9 LAB L501.2200 8.5-10.1 mg/dL CA Normal 9.9 LAB L501.5300 136-145 mmol/L NA Normal 138 LAB L501.5600 3.5-5.1 mmol/L High K 5.3 LAB L501.5900 98-107 mmol/L CL Normal 106 LAB L501.6100 21.0-32.0 mmol/L Normal CO2 26.0 LAB L501.6200 5-15 Normal GAP 6 Performed By: #### L500.2500 #### [facility] [address] [place], [address] PROTHROMBIN TIME W/INR Collected: 05/23/2018 Status: F Source: [place] 11:45 AM [facility] REPOSITORY TYPE CODE TESTS RESULT OUT OF RANGE REFERENCE UNITS LAB L300.4150 11.7-14.9 SECONDS High PROTIME 21.9 LAB L300.4200 Normal INR 1.9 Performed By: #### L300.3900 #### [facility] [address] [place], [address] PROGRESS Observed: 05/22/2018 Status: COMPLETED Source: [place] 1:59 PM [facility] REPOSITORY HNO ID: [id number] Author: Monika (Reel System Operator) Benitez Service: (none) Author Type: Nurse Specialist Type: Progress Notes Filed: 05/22/2018 2:28 PM Note Text: OUTPATIENT VISIT DATE May 22, 2018 OUTPATIENT VISIT TYPE ESTABLISHED PRIMARY CARE PHYSICIAN: Skip Ratliff MD CHIEF COMPLAINT: Patient presents with: Chest Congestion: chest AND sinus congestion History of Present Illness: Tyron Coon is a 83 year old male who was last seen 06/2017 by Skip Ratliff MD. 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 Some wheezing and mild shortness of breath is noted. He reports no fever. Initially had sore throat but no longer. No complaints of earache or headache. He's been using [place], generic cough medicine and Claritin with some improvement of symptoms. Does have a sick contact at work. . The ROS is otherwise negative. The patient's pmh, medications, allergies, and past visits are reviewed. PHYSICAL EXAM: BP 130/80 (BP Site: Right Arm, BP Position: Sitting, BP Cuff Size: Regular Adult) Pulse 60 Temp 36.7 ?C (98.1 ?F) Resp 20 Wt 89.8 kg (198 lb) SpO2 98% BMI 30.11 kg/m? General appearance: tired/ill appearing Head: Normocephalic Eyes: conjunctiva/corneas normal Ears: R TM - dull, L TM - dull Nose: purulent rhinorrhea, erythematous Oropharynx: moist without lesions Neck: supple and small, benign anterior cervical nodes bilaterally Heart: regular rate and rhythm, without murmur Lungs: clear to auscultation, without rales or wheeze, good air exchange No recent hospital or ED visits. No new medical problems or medications. Able to obtain medications. No problems with taking medications or note side effects. 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 - Benign neoplasm of colon - Diarrhea - Diverticulosis of colon (without mention of hemorrhage) - Family history of malignant neoplasm of gastrointestinal tract - Other congenital anomaly of peripheral vascular system - Personal history of colonic polyps - PMR (polymyalgia rheumatica) (HCC) - Respiratory complications - Sarcoidosis - Shingles recurrent; has had 3 episodes - Unspecified essential hypertension PAST SURGICAL HISTORY Procedure Laterality Date - BYPASS GRAFT OTHR,FEM-FEM 11/24/2004 Bypass graft fem-fem - COLONOSCOP W/ OR W/O BRS SPEC 12/01/1999 Colonoscopy - COLONOSCOP W/ OR W/O BRS SPEC 04/15/2003 Colonoscopy - COLONOSCOP W/ OR W/O BRS SPEC - COLONOSCOP W/ OR W/O BRS SPEC 11/26/2013 Colonoscopy - COLONOSCOP W/ OR W/O BRS SPEC 11/21/15 Colonoscopy - LAPAROSCOPY, SURGICAL; ORCHIECTOMY Rt side - [facility] - PAST SURGICAL HISTORY OF ORIF olecranon fracture - [place] ANESTH,CHEST SURGERY,THORACOTOMY sarcoidosis - REP RETINAL DETACHMENT OTH TECHN 2011. right eye - THROMBOENDARTECTMY FEMORAL COMMON 11/24/2004 Right - TOTAL HIP REPLACEMENT Right 03/2017 [facility] (Dr. Moreland) FAMILY HISTORY Problem Relation Age of Onset - Colon Cancer Mother - other (CHF) Father - Diabetes Other - Prostate Cancer Other - other (Rheumatoid arthritis) Paternal Aunt Social History Substance Use Topics - Smoking status: Never Smoker - Smokeless tobacco: Never Used - Alcohol use Yes ALLERGIES: ALLERGIES Allergen Reactions - Amoxicillin Hives - Sulfa (Sulfonamide * Rash Aching and shaking. - Lisinopril Rash was causing eczema reaction - Penicillins Rash - Plavix [Clopidogrel* itch MEDICATIONS metoprolol tartrate, short acting, (LOPRESSOR) 25 mg tablet Take 25 mg by mouth once daily. warfarin (COUMADIN) 2.5 mg tablet Take 2.5 mg by mouth daily as directed. isosorbide mononitrate ER (IMDUR) 30 mg 24 hr tablet Take 30 mg by mouth once daily. fluocinonide (LIDEX) 0.05 % ointment APPLY TO WORST AREAS OR MORE RESISTANT AREAS OF ACUTE AND CHRONIC ECZEMA RASH: ECZEMA DERMATITIS OF OPEN AREAS OF BACK, LEGS, AND ARMS BID TO TID UNTIL CLEAR AND TAPER OFF ABLE; AVOID FACE, EYES, EYELIDS, AND DEEP FOLD AREAS. (still has some left from prior RX) aspirin, enteric coated (ASPIRIN, ENTERIC COATED) 81 mg EC tablet Take 81 mg by mouth once daily. omega-3 fatty acids/vitamin e(FISH OIL 1,000 MG CAP) one capsule daily loratadine(CLARITIN 10 MG TAB) Take one(1) tablet daily as needed for allergy symptoms. MULTIVITAMIN TAB Take one(1) tablet daily. amLODIPine (NORVASC) 5 mg tablet Take 1 tablet by mouth once daily. Reviewed chart, outside records, tests [facility] checked and validated. All prescriptions have been APPROPRIATELY filled. No suspicious activity was identified. 05/22/2018 by Monika Marquis APRN.AUTOMOTIVE SOFTWARE ENGINEER I personally interviewed, confirmed and edited the above information if obtained by others. TESTING: Glucose (mg/dL) Date Value 05/24/2017 70 Potassium (mmol/L) Date Value 05/24/2017 4.8 Sodium (mmol/L) Date Value 05/24/2017 133 Chloride (mmol/L) Date Value 05/24/2017 97 CO2 (mmol/L) Date Value 05/24/2017 22 Creatinine (mg/dL) Date Value 05/24/2017 1.14 BUN (mg/dL) Date Value 05/24/2017 19 Anion Gap (mmol/L) Date Value 05/24/2017 14 Calcium (mg/dL) Date Value 05/24/2017 10.7 Glucose (mg/dL) Date Value 05/24/2017 70 Potassium (mmol/L) Date Value 05/24/2017 4.8 Sodium (mmol/L) Date Value 05/24/2017 133 Chloride (mmol/L) Date Value 05/24/2017 97 CO2 (mmol/L) Date Value 05/24/2017 22 Creatinine (mg/dL) Date Value 05/24/2017 1.14 BUN (mg/dL) Date Value 05/24/2017 19 Anion Gap (mmol/L) Date Value 05/24/2017 14 Calcium (mg/dL) Date Value 05/24/2017 10.7 Protein, Total (g/dL) Date Value 05/22/2016 6.5 Albumin (g/dL) Date Value 05/22/2016 3.9 Bilirubin, Total (mg/dL) Date Value 05/22/2016 <0.2 Alkaline Phosphatase (U/L) Date Value 05/22/2016 94 AST (U/L) Date Value 05/22/2016 35 ALT (U/L) Date Value 05/22/2016 21 Hemoglobin (g/dL) Date Value 05/22/2016 10.0 Hematocrit (%) Date Value 05/22/2016 30.9 WBC (k/uL) Date Value 05/22/2016 4.62 Cholesterol, Total (mg/dL) Date Value 06/09/2013 179 HDL Cholesterol (mg/dL) Date Value 06/09/2013 85 LDL Cholesterol (mg/dL) Date Value 06/09/2013 83 Triglyceride (mg/dL) Date Value 06/09/2013 53 No results found for: HBA1C Ejection Fraction - Result: 60 % Date: 02/28/2015 Time: 09:09:20 IMPRESSION: Mr. Coon is a 83 year old nan Presents with upper respiratory illness with cough not improved over the last week with bsyx-xjj-[id number] treatments. After my examination and review of data, I make the following recommendations. PLAN AND RECOMMENDATIONS: 1. Sinobronchitis - ICD9: 473.9, 490, ICD10: J32.9, J40 (primary diagnosis) - Will begin treatment with as per antibiotic as written, see orders - Supportive care with plenty of fluids, rest, and analgesia prn. - Follow up if symptoms persist or worsen. ER for severe or concerning symptoms, SOB - DOXYCYCLINE HYCLATE 100 MG TABLET - ALBUTEROL SULFATE HFA 90 MCG/ACTUATION AEROSOL INHALER - INHALATIONAL SPACING DEVICE - CODEINE 10 MG-GUAIFENESIN 100 MG/5 ML ORAL LIQUID 2. Cough - ICD9: 786.2, ICD10: R05 - ALBUTEROL SULFATE HFA 90 MCG/ACTUATION AEROSOL INHALER - INHALATIONAL SPACING DEVICE - CODEINE 10 MG-GUAIFENESIN 100 MG/5 ML ORAL LIQUID Advised to go to ER if develops chest pain, shortness of breath, or severe worsening of symptoms. Discussed risks, benefits, alternatives, and potential side effects of medications. Mr. Coon expressed understanding and agreed with the plan. Monika Marquis APRN.AUTOMOTIVE SOFTWARE ENGINEER CNOV Observed: 05/22/2018 Status: COMPLETED Source: [place] 1:40 PM [facility] REPOSITORY Office Visit (INTMWS) TYRON COON ([id number]) 1935 M NFR Date Time Provider Department 05/22/18 1:40 PM MONIKA MARQUIS ([facility]) INTMWS During your visit today, we recorded the following information about you: Temperature Pulse Respiration Blood pressure 98.1 degrees 60/minute 20/minute 130/80 Weight 89.8 kg Monika Marquis APRN.AUTOMOTIVE SOFTWARE ENGINEER 05/22/2018 2:28 PM Signed OUTPATIENT VISIT DATE May 22, 2018 OUTPATIENT VISIT TYPE ESTABLISHED PRIMARY CARE PHYSICIAN: Skip Ratliff MD CHIEF COMPLAINT: Patient presents with: Chest Congestion: chest AND sinus congestion History of Present Illness: Tyron Coon is a 83 year old male who was last seen 06/2017 by Skip Ratliff MD. 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 Some wheezing and mild shortness of breath is noted. He reports no fever. Initially had sore throat but no longer. No complaints of earache or headache. He's been using [place], generic cough medicine and Claritin with some improvement of symptoms. Does have a sick contact at work. . The ROS is otherwise negative. The patient's pmh, medications, allergies, and past visits are reviewed. PHYSICAL EXAM: BP 130/80 (BP Site: Right Arm, BP Position: Sitting, BP Cuff Size: Regular Adult) Pulse 60 Temp 36.7 ?C (98.1 ?F) Resp 20 Wt 89.8 kg (198 lb) SpO2 98% BMI 30.11 kg/m? General appearance: tired/ill appearing Head: Normocephalic Eyes: conjunctiva/corneas normal Ears: R TM - dull, L TM - dull Nose: purulent rhinorrhea, erythematous Oropharynx: moist without lesions Neck: supple and small, benign anterior cervical nodes bilaterally Heart: regular rate and rhythm, without murmur Lungs: clear to auscultation, without rales or wheeze, good air exchange No recent hospital or ED visits. No new medical problems or medications. Able to obtain medications. No problems with taking medications or note side effects. 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 - Benign neoplasm of colon - Diarrhea - Diverticulosis of colon (without mention of hemorrhage) - Family history of malignant neoplasm of gastrointestinal tract - Other congenital anomaly of peripheral vascular system - Personal history of colonic polyps - PMR (polymyalgia rheumatica) (HCC) - Respiratory complications - Sarcoidosis - Shingles recurrent; has had 3 episodes - Unspecified essential hypertension PAST SURGICAL HISTORY Procedure Laterality Date - BYPASS GRAFT OTHR,FEM-FEM 11/24/2004 Bypass graft fem-fem - COLONOSCOP W/ OR W/O [facility] SPEC 12/01/1999 Colonoscopy - COLONOSCOP W/ OR W/O BRS SPEC 04/15/2003 Colonoscopy - COLONOSCOP W/ OR W/O BRS SPEC - COLONOSCOP W/ OR W/O BRS SPEC 11/26/2013 Colonoscopy - COLONOSCOP W/ OR W/O BRS SPEC 11/21/15 Colonoscopy - LAPAROSCOPY, SURGICAL; ORCHIECTOMY Rt side - [facility] - PAST SURGICAL HISTORY OF ORIF olecranon fracture - [place] ANESTH,CHEST SURGERY,THORACOTOMY sarcoidosis - REP RETINAL DETACHMENT OTH TECHN 2011. right eye - THROMBOENDARTECTMY FEMORAL COMMON 11/24/2004 Right - TOTAL HIP REPLACEMENT Right 03/2017 [facility] (Dr. Moreland) FAMILY HISTORY Problem Relation Age of Onset - Colon Cancer Mother - other (CHF) Father - Diabetes Other - Prostate Cancer Other - other (Rheumatoid arthritis) Paternal Aunt Social History Substance Use Topics - Smoking status: Never Smoker - Smokeless tobacco: Never Used - Alcohol use Yes ALLERGIES: ALLERGIES Allergen Reactions - Amoxicillin Hives - Sulfa (Sulfonamide * Rash Aching and shaking. - Lisinopril Rash was causing eczema reaction - Penicillins Rash - Plavix [Clopidogrel* itch MEDICATIONS metoprolol tartrate, short acting, (LOPRESSOR) 25 mg tablet Take 25 mg by mouth once daily. warfarin (COUMADIN) 2.5 mg tablet Take 2.5 mg by mouth daily as directed. isosorbide mononitrate ER (IMDUR) 30 mg 24 hr tablet Take 30 mg by mouth once daily. fluocinonide (LIDEX) 0.05 % ointment APPLY TO WORST AREAS OR MORE RESISTANT AREAS OF ACUTE AND CHRONIC ECZEMA RASH: ECZEMA DERMATITIS OF OPEN AREAS OF BACK, LEGS, AND ARMS BID TO TID UNTIL CLEAR AND TAPER OFF ABLE; AVOID FACE, EYES, EYELIDS, AND DEEP FOLD AREAS. (still has some left from prior RX) aspirin, enteric coated (ASPIRIN, ENTERIC COATED) 81 mg EC tablet Take 81 mg by mouth once daily. omega-3 fatty acids/vitamin e(FISH OIL 1,000 MG CAP) one capsule daily loratadine(CLARITIN 10 MG TAB) Take one(1) tablet daily as needed for allergy symptoms. MULTIVITAMIN TAB Take one(1) tablet daily. amLODIPine (NORVASC) 5 mg tablet Take 1 tablet by mouth once daily. Reviewed chart, outside records, tests [employer] website checked and validated. All prescriptions have been APPROPRIATELY filled. No suspicious activity was identified. 05/22/2018 by Monika Marquis APRN.AUTOMOTIVE SOFTWARE ENGINEER I personally interviewed, confirmed and edited the above information if obtained by others. TESTING: Glucose (mg/dL) Date Value 05/24/2017 70 Potassium (mmol/L) Date Value 05/24/2017 4.8 Sodium (mmol/L) Date Value 05/24/2017 133 Chloride (mmol/L) Date Value 05/24/2017 97 CO2 (mmol/L) Date Value 05/24/2017 22 Creatinine (mg/dL) Date Value 05/24/2017 1.14 BUN (mg/dL) Date Value 05/24/2017 19 Anion Gap (mmol/L) Date Value 05/24/2017 14 Calcium (mg/dL) Date Value 05/24/2017 10.7 Glucose (mg/dL) Date Value 05/24/2017 70 Potassium (mmol/L) Date Value 05/24/2017 4.8 Sodium (mmol/L) Date Value 05/24/2017 133 Chloride (mmol/L) Date Value 05/24/2017 97 CO2 (mmol/L) Date Value 05/24/2017 22 Creatinine (mg/dL) Date Value 05/24/2017 1.14 BUN (mg/dL) Date Value 05/24/2017 19 Anion Gap (mmol/L) Date Value 05/24/2017 14 Calcium (mg/dL) Date Value 05/24/2017 10.7 Protein, Total (g/dL) Date Value 05/22/2016 6.5 Albumin (g/dL) Date Value 05/22/2016 3.9 Bilirubin, Total (mg/dL) Date Value 05/22/2016 <0.2 Alkaline Phosphatase (U/L) Date Value 05/22/2016 94 AST (U/L) Date Value 05/22/2016 35 ALT (U/L) Date Value 05/22/2016 21 Hemoglobin (g/dL) Date Value 05/22/2016 10.0 Hematocrit (%) Date Value 05/22/2016 30.9 WBC (k/uL) Date Value 05/22/2016 4.62 Cholesterol, Total (mg/dL) Date Value 06/09/2013 179 HDL Cholesterol (mg/dL) Date Value 06/09/2013 85 LDL Cholesterol (mg/dL) Date Value 06/09/2013 83 Triglyceride (mg/dL) Date Value 06/09/2013 53 No results found for: HBA1C Ejection Fraction - Result: 60 % Date: 02/28/2015 Time: 09:09:20 IMPRESSION: Mr. Coon is a 83 year old nan Presents with upper respiratory illness with cough not improved over the last week with eoue-ljh-rloxybq treatments. After my examination and review of data, I make the following recommendations. PLAN AND RECOMMENDATIONS: 1. Sinobronchitis - ICD9: 473.9, 490, ICD10: J32.9, J40 (primary diagnosis) - Will begin treatment with as per antibiotic as written, see orders - Supportive care with plenty of fluids, rest, and analgesia prn. - Follow up if symptoms persist or worsen. ER for severe or concerning symptoms, SOB - DOXYCYCLINE HYCLATE 100 MG TABLET - ALBUTEROL SULFATE HFA 90 MCG/ACTUATION AEROSOL INHALER - INHALATIONAL SPACING DEVICE - CODEINE 10 MG-GUAIFENESIN 100 MG/5 ML ORAL LIQUID 2. Cough - ICD9: 786.2, ICD10: R05 - ALBUTEROL SULFATE HFA 90 MCG/ACTUATION AEROSOL INHALER - INHALATIONAL SPACING DEVICE - CODEINE 10 MG-GUAIFENESIN 100 MG/5 ML ORAL LIQUID Advised to go to ER if develops chest pain, shortness of breath, or severe worsening of symptoms. Discussed risks, benefits, alternatives, and potential side effects of medications. Mr. Coon expressed understanding and agreed with the plan. Monika Marquis APRN.AUTOMOTIVE SOFTWARE ENGINEER Referring Provider: SELF [[id number]] Allergies As of Date: 05/22/2018 Noted Allergy Reaction AMOXICILLIN 06/01/2005 4 - Hives SULFA (SULFONAMIDE ANTIBIOTICS) 10/17/2007 2 - Rash Comments: Aching and shaking. LISINOPRIL 03/01/2011 2 - Rash Comments: was causing eczema reaction PENICILLINS 03/19/2017 2 - Rash PLAVIX (CLOPIDOGREL BISULFATE) 06/01/2005 Comments: itch Date Reviewed: 05/22/2018 Reviewed by: Amanda Bell LPN - Fully Assessed Reason for Visit: Chest Congestion [236] Cmt: chest AND sinus congestion Primary Visit Diagnosis:Sinobronchitis [J32.9, J40] Other Visit Diagnosis:Cough [R05] Order(s):doxycycline (VIBRA-TABS) 100 mg tabletTake 1 tablet by mouth twice daily for 10 days.Disp: 20 tabletRfl: 0 albuterol HFA (PROVENTIL HFA, VENTOLIN HFA) 90 mcg/actuation inhalerInhale 2 Puffs as instructed every 6 hours as needed. for cough and wheezingDisp: 1 InhalerRfl: 0 Inhalational Spacing Device spcr1 Device one time only for 1 dose.Disp: 1 EachRfl: 0 codeine-guaiFENesin (ROBITUSSIN AC) 10-100 mg/5 mL syrupTake 5-10 mL by mouth four times daily as needed for Cough for up to 7 days. May cause drowsiness.Disp: 120 mLRfl: 0 Prescriptions as of 05/22/2018 Sig: METOPROLOL TARTRATE 25 MG TAB* Take 25 mg by mouth once mary* WARFARIN 2.5 MG TABLET Take 2.5 mg by mouth daily as* ISOSORBIDE MONONITRATE ER 30 * Take 30 mg by mouth once mary* FLUOCINONIDE 0.05 % TOPICAL O* APPLY TO WORST AREAS OR MORE * ASPIRIN 81 MG TABLET,DELAYED * Take 81 mg by mouth once mary* * FISH OIL 1,000 MG CAPSULE one capsule daily * CLARITIN 10 MG TABLET Take one(1) tablet daily as n* * MULTIVITAMIN TABLET Take one(1) tablet daily. DOXYCYCLINE HYCLATE 100 MG TA* Take 1 tablet by mouth twice * ALBUTEROL SULFATE HFA 90 MCG/* Inhale 2 Puffs as instructed * INHALATIONAL SPACING DEVICE 1 Device one time only for 1 * CODEINE 10 MG-GUAIFENESIN 100* Take 5-10 mL by mouth four ti* AMLODIPINE 5 MG TABLET Take 1 tablet by mouth once d* Patient not taking: Reported on 05/22/2018 Problem List As Of Date 05/22/2018 Noted Resolved Diverticulosis of colon (without mention of hem* 06/02/2013 COMPLIC-RESPIR SYST [997.3] 03/29/2008 Sarcoidosis [D86.9] More... More... Essential hypertension [I10] More... Diarrhea [R19.7] 06/02/2013 Benign neoplasm of colon [D12.6] More... OPEN WOUND SITE NOS [T14.8XXA] INVALID FOR*03/29/2008 Other malignant neoplasm of skin, site unspecif*INVALID FOR* More... SOLAR LENGINES///DYSCHROMIA OTHER [L81.9] INVALID FOR*03/29/2008 DERMATITIS NOS [L25.9] INVALID FOR*03/29/2008 XEROSIS///SEBACEOUS GLAND DIS NEC [L73.8] INVALID FOR*03/29/2008 OTHER ATOPIC DERMATITIS [L20.89] INVALID FOR*03/29/2008 PRURITIC DISORDER NOS [L29.9] INVALID FOR*03/29/2008 EXCORIATION///SUPERFICIAL INJURY NEC [T07.XXXA] INVALID FOR*03/29/2008 Routine General Medical Examination at a Health*INVALID FOR*06/02/2013 More... Malignant neoplasm of other and unspecified wendi*INVALID FOR* More... Psychosexual Dysfunction with Inhibited Sexual *INVALID FOR* More... OVERWEIGHT [E66.3] INVALID FOR* More... Edema [R60.9] INVALID FOR* More... DERMATITIS NOS [L25.9] INVALID FOR*01/26/2009 Disturbance of skin sensation [R20.9] INVALID FOR*06/02/2013 Herpes zoster without mention of complication [*INVALID FOR*06/02/2013 Pyoderma, unspecified [L08.0] INVALID FOR*06/02/2013 PERIPH VASCULAR DIS NOS [I73.9] INVALID FOR* Hyperlipidemia [E78.5] INVALID FOR* More... 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 Atrial arrhythmia [I49.8] INVALID FOR* Prescriptions ordered this encounter Disp Refills Start End DOXYCYCLINE HYCLATE 100 MG TABLET 20 t* 0 05/22/2018 06/01/2018 Route: ORAL Sig: Take 1 tablet by mouth twice daily for 10 days. ALBUTEROL SULFATE HFA 90 MCG/ACTUATI* 1 In* 0 05/22/2018 Route: INHALATION Sig: Inhale 2 Puffs as instructed every 6 hours as needed. for cough and wheezing INHALATIONAL SPACING DEVICE 1 Ea* 0 05/22/2018 05/22/2018 Route: Misc Si Device one time only for 1 dose. CODEINE 10 MG-GUAIFENESIN 100 MG/5 M* 120 * 0 05/22/2018 05/29/2018 Class: Print RX Route: ORAL Sig: Take 5-10 mL by mouth four times daily as needed for Cough for up to 7 days. May cause drowsiness. Encounter Status:Closed by MONIKA DUMONT on 05/22/18 PROTHROMBIN TIME W/INR Collected: 05/16/2018 Status: F Source: [place] 1:39 PM [facility] REPOSITORY TYPE CODE TESTS RESULT OUT OF RANGE REFERENCE UNITS LAB L300.4150 11.7-14.9 SECONDS High PROTIME 20.6 LAB L300.4200 Normal INR 1.8 Performed By: #### L300.3900 #### [facility] [address] [place], [place], [address] PROTHROMBIN TIME W/INR Collected: 04/25/2018 Status: F Source: [place] 10:13 AM [facility] REPOSITORY TYPE CODE TESTS RESULT OUT OF RANGE REFERENCE UNITS LAB L300.4150 11.7-14.9 SECONDS High PROTIME 23.8 LAB L300.4200 Normal INR 2.1 Performed By: #### L300.3900 #### [facility] [address] [place], [place], [address] PROTHROMBIN TIME W/INR Collected: 04/11/2018 Status: F Source: [place] 10:35 AM [facility] REPOSITORY TYPE CODE TESTS RESULT OUT OF RANGE REFERENCE UNITS LAB L300.4150 11.7-14.9 SECONDS High PROTIME 23.9 LAB L300.4200 Normal INR 2.1 Performed By: #### L300.3900 #### [facility] [address] [place], [place], [address] PULMONARY FUNCTION Observed: 04/10/2018 Status: F Source: [place] REPORT COMP 1:34 PM [facility] REPOSITORY [facility] Pulmonary Services/Neurology [address] [place] [address] MR#: [id number] Acct: [id number] Name: TYRON COON Rep #: [id number] : 1935 83 From: Mateus Yao MD Referring Dr: Jaron Kellogg MD Status: REG CLI Ordering Dr: Date: Location: PSN Sex: M C COMPLETE PULMONARY FUNCTION TEST INTERPRETATION Brief HPI: Patient is an 83 year old male, currently under the care of Dr. Kellogg, who presents to [facility] for complete pulmonary function tests secondary to diagnosis of dyspnea on exertion. Respiratory therapist reports good effort and reproducible results. Interpretation: Forced expiration spirometry shows no large airways obstructive ventilatory defect with an FEV1 of 90% predicted. There is no significant bronchodilator response by strict ATS criteria. Spirograms are of good quality and plateau slowly, indicating slowly emptying areas of the lungs. The respiratory flow volume loop shows decreased expiratory flow rates at high lung volumes consistent with small airways obstruction. Lung volumes by body plethysmography show a normal total lung capacity at 6 L, 103% predicted. All other lung volumes are within normal limits. Diffusion capacity by carbon monoxide is normal at 87% predicted. The airway resistance is slightly elevated. No previous pulmonary function tests were available for review. Impression: These pulmonary function tests are grossly within normal limits. However, there are some subtle signs of small airways obstruction. Consider bronchoprovocation study if asthma is a consideration. 04/10/181333 <Electronically signed by Mateus Yao MD> Date Mateus Yao MD CC: Mateus Yao MD; Jaron Kellogg MD; Skip Ratliff MD Date Dictated: 04/10/181331 Date Transcribed: 04/10/181331 Inseam Trimming Machine Operator: ROBIN Signed PROTHROMBIN TIME W/INR Collected: 04/04/2018 Status: F Source: [place] 10:53 AM [facility] REPOSITORY TYPE CODE TESTS RESULT OUT OF RANGE REFERENCE UNITS LAB L300.4150 11.7-14.9 SECONDS High PROTIME 21.4 LAB L300.4200 Normal INR 1.9 Performed By: #### L300.3900 #### [facility] [address] [place], [address] CARDIOLOGY VISIT Observed: 03/21/2018 Status: F Source: [place] REPORT 11:15 AM [facility] REPOSITORY [facility] [address] [place] [address] OFFICE VISIT Date of Service: 03/21/18 MR#: [id number] Acct: [id number] Name: TYRON COON Rep #: [id number] : 1935 Provider: Jaron Kellogg MD Age/Sex: 83/M [place] [facility] Status: Signed HPI HPI Chief Complaint: Routine f/u Details: TYRON COON, is a 83 nondiabetic, lifelong non-smoker, with a history of hypertension, former member of the [facility] board, no previous known coronary artery disease, no previous catheterization. Patient had right-sided testicular cancer diagnosed in 1961, underwent orchiectomy followed by radiation therapy. Approximately 12 years ago the patient developed claudication in his right leg due to the radiation underwent femorol-femoral bypass by Dr. Barrientos. 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 In addition the patient has had hypertension for many years and has been on amlodipine with chronic lower extremity edema, right greater than left. In 2014 the patient developed palpitations and underwent a fairly extensive workup including an echocardiogram dated 02/28/15 which showed normal LV size and function with an EF of 60%, unable to quantitate RVSP. At that time he underwent a stress echocardiogram which again was negative for inducible ischemia. In addition on 11/30/14 he underwent a 24-hour Holter monitor which showed sinus rhythm with first-degree block, sinus bradycardia and sinus arrhythmia and rare PVCs and PACs. Patient now notes recurrent and worsening palpitations, which occur more frequently with activity now that the weather is improving. He also reports worsening shortness of breath and dyspnea on exertion particularly with walking up inclines. He does admit to snoring, but does not have daytime somnolence. Patient underwent a repeat 2D echo with Doppler which showed normal LV function but an increase in his aortic root from 4.6-5.1 cm. We also performed a 30 day event monitor which captured several episodes of atrial fibrillation lasting an hour and 49 minutes. Patient also had an episode of slurred speech, and a carotid Doppler was performed on 12/06/17 which showed less than 50% stenosis bilaterally and no significant hemodynamic plaquing. Patient initially referred to us to discuss anticoagulation options as well as referral to Dr. Carvajal for aortic root evaluation. Patient underwent a stress echocardiogram on 12/24/17 which appeared to be abnormal with mid anterior ischemia. To better evaluate this he underwent a diagnostic coronary angiogram on 01/07/18 at [facility] which showed nonobstructive coronary disease, dilated aortic root, and normal LV function. Patient was seen by Dr. Carvajal on 01/15/18 and did not feel the patient required aortic root replacement at this time. He recommended serial CT scans every 6 months or so, the next one in June. Patient's main complaint is dyspnea on exertion and shortness of breath particularly with trying to keep up with his neighbor on their daily walks. His symptoms are particularly acute when he is trying to walk up inclines. He has no associated anginal symptoms. Patient cannot detect when he is in and out of atrial fibrillation. His recent 30 day event monitor from November 2017 showed intermittent atrial fibrillation but mostly sinus rhythm. In our office today's blood pressure is 130/60, and pulse is 56 and regular. His physical exam demonstrates clear lungs bilaterally, no carotid bruits, regular rate and rhythm, normal S1/S2, with ectopic no murmurs detected. He has 2-3+ right-sided lower extremity edema which appears to be chronic and due to lymphatic issues. He also has chronic lower extremity edema in the left side which is 1-2+. EKG previously demonstrates sinus bradycardia, normal axis, first-degree AV block, no evidence of previous myocardial infarction. Intake Vital Signs03/21/18 Height 5 ft 9 in 03/21/18 Weight: 196 lb 03/21/18 Body Mass Index (BMI) 28.9 03/21/18 Blood Pressure 130/60 Intake Visit Reasons: 4 M FU Allergies Penicillins [PCN] Allergy (Verified 03/19/18 11:23) Rash Sulfa (Sulfonamide Antibiotics) Allergy (Verified 03/19/18 11:23) Other clopidogrel [From Plavix] Adverse Reaction (Verified 03/19/18 11:23) rash/itching hydrochlorothiazide Adverse Reaction (Verified 03/19/18 11:23) rash Medications Multivitamins,Therapeutic [Multivitamin] 1 tab PO DAILY 03/19/17 [History Confirmed 01/06/18] [place]-3 Fatty Acids [Fish Oil] 500 mg PO DAILY 03/19/17 [History Confirmed 01/06/18] aspirin 81 mg tablet,delayed release 81 mg PO QDAY 11/04/17 [History Confirmed 01/06/18] metoprolol succinate ER 25 mg tablet,extended release 24 hr 25 mg PO QDAY #30 tab 11/05/17 [Rx Confirmed 03/21/18] isosorbide mononitrate ER 30 mg tablet,extended release 24 hr 30 mg PO QAM #30 tab 01/07/18 [Rx Confirmed 03/21/18] warfarin 5 mg tablet 5 mg PO .COMPLEX tab 03/21/18 [History] PFSH Medical History Abnormal stress echo (Acute) Paroxysmal atrial fibrillation (Acute) Ascending aortic aneurysm (Acute) Expressive aphasia (Acute) Neurological deficit, transient (Acute) Chronic anemia (Chronic) Hypertension (Chronic) Osteoarthritis (Chronic) PMR (polymyalgia rheumatica) (Chronic) PVD (peripheral vascular disease) (Chronic) Sarcoidosis (Chronic) Testicular cancer (Resolved) Surgical History History of left heart catheterization (Chronic 01/07/18) History of orchiectomy, unilateral (Chronic) History of thoracotomy (Chronic) ORIF (Chronic) S/P femoral-femoral bypass surgery (Chronic 11/2004) H/O total hip arthroplasty (Inactive 03/2017) Family History Mother Cancer Brother Diabetes Heart disease PPM Social History Smoking Status: Never smoker alcohol intake: current alcohol intake frequency: 0-2 drinks per day Alcohol type: beer ROS Const Const: Positive for other (Saw Dr. Carvajal, no surgery for now on AAA. Feel swell); negative for fatigue, weakness, body ache, fever(s), headache(s), chills, frequent falls, night sweats, daytime sleepiness, difficulty sleeping, excessive sweating, weight gain, weight loss, increased appetite, poor appetite or anorexia Eyes Eyes: Negative for blind spots, loss of peripheral vision, transient loss of vision, blurry vision, change in vision, double vision, floaters, tunnel vision or other ENT ENT: Negative for headache(s), dizziness, hearing loss, tinnitus, Nosebleed/epistaxis, balance problems, post nasal drip, lip swelling, tongue swelling, bleeding gums, hoarseness, neck pain, dry mouth or other Cardio Chest Pain: No Resp Respiratory: Negative for SOB with activity, SOB at rest, SOB orthopnea\SOB lying down, Coughing up blood/hemoptysis, chest congestion, pain on inspiration, snoring, stridor, wheezing, crackles, paroxysmal nocturnal dyspnea or other GI GI: Negative nausea, vomiting, heartburn, constipation, belching, bloating, cramping, vomiting blood/hematemesis, bright, red blood in stools, black,tarry stools, loose stools, Difficulty Swallowing or other : Negative for hematuria, frequent nighttime urination/ nocturia, erectile dysfunction or abnormal vaginal bleeding Musc Musc: Negative for balance problems, muscle aches/ myalgia, muscle weakness or joint pain Skin Skin: Negative redness, non-healing lesions, rash, unusual bruising, skin ulcer, wounds, jaundice or other Neuro Neuro: Negative for weakness, headache(s), frequent falls, blurry vision, double vision, dizziness, lightheadedness, near syncope, syncope, orthostatic symptoms, confusion, memory loss, restless legs, vertigo, seizures, lack of coordination or other Jonathon Hematologic/Lymphatic: Negative for easy bleeding, easy bruising, enlarged lymph nodes or other Endo Endo: Negative for fatigue, excessive sweating, cold intolerance, heat intolerance, flushing, increased thirst/drinking, increased hunger, hair loss, hair growth or other Psych Psych: Negative for anxiety, depression, thoughts of harming anyone, thoughts of harming yourself, visual hallucinations, panic attacks or audible hallucinations Allergy Allergy/Immunology: Negative for lip swelling, Negative for tongue swelling, Negative for rash, Negative for throat swelling, Negative for hives Cardiology Exam Const Appearance: cooperative, healthy appearing and no acute distress Nutritional Appearance: well nourished Orientation: alert, oriented x3 and oriented to person Head Head: normal to inspection, atraumatic and normocephalic Nose: external nose normal Face and Sinus: face symmetric Mouth: oral mucosae normal Eyes General: appearance normal, both eyes and all related structures Eyelids: eyelids normal Conjunctivae: conjunctivae normal Pupils: PERRL and normal by confrontation EOM: EOM intact bilaterally Neck Neck: normal visual inspection and full ROM Carotids: normal carotid upstroke Chest Chest inspection: normal inspection of the chest Auscultation: Bilateral: Clear to Auscultation Cardio Palpation: normal PMI Rate: regular rate Rhythm: regular rhythm Heart sounds: S1 normal and S2 normal GI GI: normal to inspection, no hepatosplenomegaly and bowel sounds present Neuro General: alert, oriented x3, awake, CN's II-XI intact bilaterally and moves all extremities Skin Skin: no rashes or lesions noted Extremities Pulses: Normal: Right Femoral Pulse, Left Femoral Pulse, Right Dorsalis Pedis Pulse, Left Dorsalis Pedis Pulse, Right Posterior Tibial Pulse, Left Posterior Tibial Pulse, Right Radial Pulse, Left Radial Pulse Lower Extremity Edema: None: Bilateral Psych Psychological: normal affect Assessment AND Plan 1. Ascending aortic aneurysm I71.2 Plan 1. Ascending aortic root aneurysm: Patient does not appear to require ascending aortic root aneurysm repair at this time per Dr. Orellana at [facility]. He has nonobstructive coronary disease and intact LV function. His blood pressure is optimized at this time. Recommend he continue his baby aspirin, Imdur, metoprolol. 2. Paroxysmal atrial fibrillation I48.0 Plan 2. Paroxysmal atrial fibrillation: The patient is unaware when he goes in and out of atrial fibrillation, and recommend continuing him on warfarin therapy. He has had no bleeding issues whatsoever. EKG will be done today to evaluate his rhythm. If he is in sinus rhythm, we will continue beta-jhony and Coumadin therapy. 3. 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 Nonetheless he has had progressively worsening dyspnea on exertion, and recommended full pulmonary function test to assess if he has had any deterioration of his pulmonary system. His LV function is normal 4. Return office in 4 months with either myself or an SAMPLE BOX MAKER This note was generated using a voice recognition system and there may be incorrect words, spelling or punctuation that were not noted when reviewing the office note prior to saving. Orders Orders: Plan Detail Other Orders Orders: Other Medications Changed: Follow Up +4M ([place] or ETHEL) Coding Level of Care Code Off vis,est,level 3 Diagnoses Ascending aortic aneurysm I71.2 Paroxysmal atrial fibrillation I48.0 Coding Level of Care Code Off vis,est,level 3 Diagnoses Ascending aortic aneurysm I71.2 Paroxysmal atrial fibrillation I48.0 03/21/18 1115 <Electronically signed by Jaron Kellogg MD> Date Jaron Kellogg MD Cosigner Signature: Date (if applicable) CC: Skip Ratliff MD 12 LEAD EKG PERFORMED Observed: 03/21/2018 Status: F [place]: [place] [facility] [place]:11 AM [facility] REPOSITORY [facility] [address] [place] [address] 12 Lead EKG performed by [facility] 03/21/18 1110 MR#: [id number] Acct: [id number] Name: TYRON COON Rep #: [id number] : 1935 83 From: Jaron Kellogg MD Attending Dr: Jaron Kellogg MD Status: DEP [facility] Ordering Dr: Jaron Kellogg MD Date: 03/21/18 [place] [facility] Sex: M C Admitted: [facility]/12 Lead EKG performed by [facility] ECG Report Interpretation Sinus Bradycardia -First degree A-V block Mykel = 240-Poor R-wave progression -nonspecific -consider old anterior infarct. - Negative precordial T- waves -May be normal -consider anteroseptal ischemia. BORDERLINEElectronically signed on 06/20/2018 at 15:42 by Jaron Kellogg Software Version [id number] 06/20/18 1546 Date Jaron Kellogg MD CC: Skip Ratliff MD Date Dictated: 03/21/181109 Date Transcribed: 03/21/181109 Inseam Trimming Machine Operator: Signed PROTHROMBIN TIME W/INR Collected: 03/21/2018 Status: F Source: [place] 10:00 AM [facility] REPOSITORY TYPE CODE TESTS RESULT OUT OF RANGE REFERENCE UNITS LAB L300.4150 11.7-14.9 SECONDS High PROTIME 24.5 LAB L300.4200 Normal INR 2.2 Performed By: #### L300.3900 #### [facility] [address] [place], [address] PROGRESS Observed: 02/25/2018 Status: COMPLETED Source: [place] 8:19 AM [facility] [place] REPOSITORY HNO ID: [id number] Author: Citlalli (Front End Mechanic) Older Service: (none) Author Type: Nurse Practitioner Type: Progress Notes Filed: 02/25/2018 9:03 AM Note Text: CC: Patient presents with: bruise on right leg x 10 days HPI Tyron Coon is a 83 year old male who presents today for bruise on right leg x 10 days. Hit his right giordano with a suitcase and developed bruising. Bruise is fading but now feels a hard lump under the skin where the bruise is. Non-tender. Denies pain or worsening leg swelling. No pain with ambulation. Patient is on Warfarin. 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 - Benign neoplasm of colon - Diarrhea - Diverticulosis of colon (without mention of hemorrhage) - Family history of malignant neoplasm of gastrointestinal tract - Other congenital anomaly of peripheral vascular system - Personal history of colonic polyps - PMR (polymyalgia rheumatica) (HCC) - Respiratory complications - Sarcoidosis (HCC) - Shingles recurrent; has had 3 episodes - Unspecified essential hypertension PAST SURGICAL HISTORY Procedure Laterality Date - BYPASS GRAFT OTHR,FEM-FEM 11/24/2004 Bypass graft fem-fem - COLONOSCOP W/ OR W/O [facility] SPEC 12/01/1999 Colonoscopy - COLONOSCOP W/ OR W/O [facility] SPEC 04/15/2003 Colonoscopy - COLONOSCOP W/ OR W/O [facility] SPEC - COLONOSCOP W/ OR W/O [facility] SPEC 11/26/2013 Colonoscopy - COLONOSCOP W/ OR W/O [facility] SPEC 11/21/15 Colonoscopy - LAPAROSCOPY, SURGICAL; ORCHIECTOMY Rt side - [facility] - PAST SURGICAL HISTORY OF ORIF olecranon fracture - [place] ANESTH,CHEST SURGERY,THORACOTOMY sarcoidosis - REP RETINAL DETACHMENT OTH TECHN 2011. right eye - THROMBOENDARTECTMY FEMORAL COMMON 11/24/2004 Right - TOTAL HIP REPLACEMENT Right 03/2017 [facility] (Dr. Moreland) ALLERGIES Amoxicillin; Sulfa (Sulfonamide Antibiotics); Lisinopril; Penicillins; Plavix [Clopidogrel Bisulfate] MEDICATIONS metoprolol tartrate, short acting, (LOPRESSOR) 25 mg tablet Take 25 mg by mouth once daily. warfarin (COUMADIN) 2.5 mg tablet Take 2.5 mg by mouth daily as directed. isosorbide mononitrate ER (IMDUR) 30 mg 24 hr tablet Take 30 mg by mouth once daily. fluocinonide (LIDEX) 0.05 % ointment APPLY TO WORST AREAS OR MORE RESISTANT AREAS OF ACUTE AND CHRONIC ECZEMA RASH: ECZEMA DERMATITIS OF OPEN AREAS OF BACK, LEGS, AND ARMS BID TO TID UNTIL CLEAR AND TAPER OFF ABLE; AVOID FACE, EYES, EYELIDS, AND DEEP FOLD AREAS. (still has some left from prior RX) amLODIPine (NORVASC) 5 mg tablet Take 1 tablet by mouth once daily. aspirin, enteric coated (ASPIRIN, ENTERIC COATED) 81 mg EC tablet Take 81 mg by mouth once daily. omega-3 fatty acids/vitamin e(FISH OIL 1,000 MG CAP) one capsule daily loratadine(CLARITIN 10 MG TAB) Take one(1) tablet daily as needed for allergy symptoms. MULTIVITAMIN TAB Take one(1) tablet daily. FAMILY HISTORY Problem Relation Age of Onset - Colon Cancer Mother - other (CHF) Father - Diabetes Other - Prostate Cancer Other - other (Rheumatoid arthritis) Paternal Aunt Social History Substance Use Topics - Smoking status: Never Smoker - Smokeless tobacco: Never Used - Alcohol use Yes PHYSICAL EXAM BP 110/84 Pulse (!) 44 Temp 36.6 ?C (97.9 ?F) (Temporal Artery) Resp 16 Wt 88.9 kg (196 lb) SpO2 97% BMI 29.80 kg/m? General Appearance: well appearing, in no acute distress, alert Lower Extremities: Fading red ecchymosis mid giordano. Hard, bony lump palpated in area of the bruise. No tenderness. No clubbing or cyanosis. Good capillary refill. Pulses: 2+, Edema: 2-3+ lymphedema to right lower leg. No cords. No calf tenderness. DTAP,TDAP,TD(3 - Tdap) due on 01/01/2016 INFLUENZA(1) due on 03/08/2018 LIPID SCREEN due on 06/09/2018 DIABETES SCREEN due on 05/24/2020 ADULT PREVNAR-13 Completed PNEUMOVAX AGE 65 AND OVER WITH 5YR LOOKBACK Completed ASSESSMENT/PLAN: 1. Contusion of right lower extremity, initial encounter - ICD9: 924.5, ICD10: S80.11XA Normal healing. Cause of hard lump under bruise unknown. It is not bothersome or painful. No alarm symptoms or exam findings. Advised patient an x-ray might possibly identify cause but unsure Patient prefers to continue to monitor and call office in two weeks if no improvement or sooner if worsening Prescription instructions reviewed with patient as applicable. Potential red flag symptoms discussed with the patient. Reviewed appropriate action plan to take if red flag symptoms occur. Patient agreeable to treatment plan. Citlalli Garrett APRN.CNP CNOV Observed: 02/25/2018 Status: COMPLETED Source: [place] 8:00 AM [facility] REPOSITORY Office Visit (INTMWS) TYRON COON ([id number]) 1935 M NFR Date Time Provider Department 02/25/18 8:00 AM CITLALLI GARRETT (JAME) [facility] During your visit today, we recorded the following information about you: Temperature Pulse Respiration Blood pressure 97.9 degrees 44/minute 16/minute 110/84 Weight 88.9 kg Citlalli Garrett APRN.CNP 02/25/2018 9:03 AM Signed CC: Patient presents with: bruise on right leg x 10 days HPI Tyron Coon is a 83 year old male who presents today for bruise on right leg x 10 days. Hit his right giordano with a suitcase and developed bruising. Bruise is fading but now feels a hard lump under the skin where the bruise is. Non-tender. Denies pain or worsening leg swelling. No pain with ambulation. Patient is on Warfarin. 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 - Benign neoplasm of colon - Diarrhea - Diverticulosis of colon (without mention of hemorrhage) - Family history of malignant neoplasm of gastrointestinal tract - Other congenital anomaly of peripheral vascular system - Personal history of colonic polyps - PMR (polymyalgia rheumatica) (HCC) - Respiratory complications - Sarcoidosis (HCC) - Shingles recurrent; has had 3 episodes - Unspecified essential hypertension PAST SURGICAL HISTORY Procedure Laterality Date - BYPASS GRAFT OTHR,FEM-FEM 11/24/2004 Bypass graft fem-fem - COLONOSCOP W/ OR W/O [facility] SPEC 12/01/1999 Colonoscopy - COLONOSCOP W/ OR W/O [facility] SPEC 04/15/2003 Colonoscopy - COLONOSCOP W/ OR W/O [facility] SPEC - COLONOSCOP W/ OR W/O [facility] SPEC 11/26/2013 Colonoscopy - COLONOSCOP W/ OR W/O [facility] SPEC 11/21/15 Colonoscopy - LAPAROSCOPY, SURGICAL; ORCHIECTOMY Rt side - [facility] - PAST SURGICAL HISTORY OF ORIF olecranon fracture - [place] ANESTH,CHEST SURGERY,THORACOTOMY sarcoidosis - REP RETINAL DETACHMENT OT TECHN 2011. right eye - THROMBOENDARTECTMY FEMORAL COMMON 11/24/2004 Right - T[employer] HIP REPLACEMENT Right 03/2017 [facility] (Dr. Moreland) ALLERGIES Amoxicillin; Sulfa (Sulfonamide Antibiotics); Lisinopril; Penicillins; Plavix [Clopidogrel Bisulfate] MEDICATIONS metoprolol tartrate, short acting, (LOPRESSOR) 25 mg tablet Take 25 mg by mouth once daily. warfarin (COUMADIN) 2.5 mg tablet Take 2.5 mg by mouth daily as directed. isosorbide mononitrate ER (IMDUR) 30 mg 24 hr tablet Take 30 mg by mouth once daily. fluocinonide (LIDEX) 0.05 % ointment APPLY TO WORST AREAS OR MORE RESISTANT AREAS OF ACUTE AND CHRONIC ECZEMA RASH: ECZEMA DERMATITIS OF OPEN AREAS OF BACK, LEGS, AND ARMS BID TO TID UNTIL CLEAR AND TAPER OFF ABLE; AVOID FACE, EYES, EYELIDS, AND DEEP FOLD AREAS. (still has some left from prior RX) amLODIPine (NORVASC) 5 mg tablet Take 1 tablet by mouth once daily. aspirin, enteric coated (ASPIRIN, ENTERIC COATED) 81 mg EC tablet Take 81 mg by mouth once daily. omega-3 fatty acids/vitamin e(FISH OIL 1,000 MG CAP) one capsule daily loratadine(CLARITIN 10 MG TAB) Take one(1) tablet daily as needed for allergy symptoms. MULTIVITAMIN TAB Take one(1) tablet daily. FAMILY HISTORY Problem Relation Age of Onset - Colon Cancer Mother - other (CHF) Father - Diabetes Other - Prostate Cancer Other - other (Rheumatoid arthritis) Paternal Aunt Social History Substance Use Topics - Smoking status: Never Smoker - Smokeless tobacco: Never Used - Alcohol use Yes PHYSICAL EXAM BP 110/84 Pulse (!) 44 Temp 36.6 ?C (97.9 ?F) (Temporal Artery) Resp 16 Wt 88.9 kg (196 lb) SpO2 97% BMI 29.80 kg/m? General Appearance: well appearing, in no acute distress, alert Lower Extremities: Fading red ecchymosis mid giordano. Hard, bony lump palpated in area of the bruise. No tenderness. No clubbing or cyanosis. Good capillary refill. Pulses: 2+, Edema: 2-3+ lymphedema to right lower leg. No cords. No calf tenderness. DTAP,TDAP,TD(3 - Tdap) due on 01/01/2016 INFLUENZA(1) due on 03/08/2018 LIPID SCREEN due on 06/09/2018 DIABETES SCREEN due on 05/24/2020 ADULT PREVNAR-13 Completed PNEUMOVAX AGE 65 AND OVER WITH 5YR LOOKBACK Completed ASSESSMENT/PLAN: 1. Contusion of right lower extremity, initial encounter - ICD9: 924.5, ICD10: S80.11XA Normal healing. Cause of hard lump under bruise unknown. It is not bothersome or painful. No alarm symptoms or exam findings. Advised patient an x-ray might possibly identify cause but unsure Patient prefers to continue to monitor and call office in two weeks if no improvement or sooner if worsening Prescription instructions reviewed with patient as applicable. Potential red flag symptoms discussed with the patient. Reviewed appropriate action plan to take if red flag symptoms occur. Patient agreeable to treatment plan. SYED Feng APRN.CNP 02/25/2018 8:24 AM Signed Call office in two weeks if symptoms persist or sooner if worsening Referring Provider: SELF [[id number]] Allergies As of Date: 02/25/2018 Noted Allergy Reaction AMOXICILLIN 06/01/2005 4 - Hives SULFA (SULFONAMIDE ANTIBIOTICS) 10/17/2007 2 - Rash Comments: Aching and shaking. LISINOPRIL 03/01/2011 2 - Rash Comments: was causing eczema reaction PENICILLINS 03/19/2017 2 - Rash PLAVIX (CLOPIDOGREL BISULFATE) 06/01/2005 Comments: itch Date Reviewed: 02/25/2018 Reviewed by: Asia Degroot Employment Legal Assistant - Fully Assessed Reason for Visit: bruise on right leg x 10 days [Other] Primary Visit Diagnosis:Contusion of right lower extremity, initial encounter [S80.11XA] Prescriptions as of 02/25/2018 Sig: METOPROLOL TARTRATE 25 MG TAB* Take 25 mg by mouth once mary* WARFARIN 2.5 MG TABLET Take 2.5 mg by mouth daily as* ISOSORBIDE MONONITRATE ER 30 * Take 30 mg by mouth once mary* FLUOCINONIDE 0.05 % TOPICAL O* APPLY TO WORST AREAS OR MORE * AMLODIPINE 5 MG TABLET Take 1 tablet by mouth once d* ASPIRIN 81 MG TABLET,DELAYED * Take 81 mg by mouth once mary* * FISH OIL 1,000 MG CAPSULE one capsule daily * CLARITIN 10 MG TABLET Take one(1) tablet daily as n* * MULTIVITAMIN TABLET Take one(1) tablet daily. Problem List As Of Date 02/25/2018 Noted Resolved Diverticulosis of colon (without mention of hem* 06/02/2013 COMPLIC-RESPIR SYST [997.3] 03/29/2008 Sarcoidosis [D86.9] More... More... Essential hypertension [I10] More... Diarrhea [R19.7] 06/02/2013 Benign neoplasm of colon [D12.6] More... OPEN WOUND SITE NOS [T14.8XXA] INVALID FOR*03/29/2008 Other malignant neoplasm of skin, site unspecif*INVALID FOR* More... SOLAR LENGINES///DYSCHROMIA OTHER [L81.9] INVALID FOR*03/29/2008 DERMATITIS NOS [L25.9] INVALID FOR*03/29/2008 XEROSIS///SEBACEOUS GLAND DIS NEC [L73.8] INVALID FOR*03/29/2008 OTHER ATOPIC DERMATITIS [L20.89] INVALID FOR*03/29/2008 PRURITIC DISORDER NOS [L29.9] INVALID FOR*03/29/2008 EXCORIATION///SUPERFICIAL INJURY NEC [T07.XXXA] INVALID FOR*03/29/2008 Routine General Medical Examination at a Health*INVALID FOR*06/02/2013 More... Malignant neoplasm of other and unspecified wendi*INVALID FOR* More... Psychosexual Dysfunction with Inhibited Sexual *INVALID FOR* More... OVERWEIGHT [E66.3] INVALID FOR* More... Edema [R60.9] INVALID FOR* More... DERMATITIS NOS [L25.9] INVALID FOR*01/26/2009 Disturbance of skin sensation [R20.9] INVALID FOR*06/02/2013 Herpes zoster without mention of complication [*INVALID FOR*06/02/2013 Pyoderma, unspecified [L08.0] INVALID FOR*06/02/2013 PERIPH VASCULAR DIS NOS [I73.9] INVALID FOR* Hyperlipidemia [E78.5] INVALID FOR* More... 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 Macular hole, right eye [H35.341] INVALID FOR* Vitreous degeneration of left eye [H43.812] INVALID FOR* Neoplasm of Uncertain Behavior(NUB) of skin [D4*INVALID FOR* Actinic skin damage [L57.8] INVALID FOR* Solar lentigo [L81.4] INVALID FOR*06/02/2013 Other seborrheic keratosis [L82.1] INVALID FOR* Chronic anemia [D64.9] INVALID FOR* PMR (polymyalgia rheumatica) (HCC) [M35.3] INVALID FOR*06/24/2017 More... Atrial arrhythmia [I49.8] INVALID FOR* Other instructions from your clinician: Call office in two weeks if symptoms persist or sooner if worsening Encounter Status:Closed by CITLALLI GARRETT CNP on 02/25/18 PROTHROMBIN TIME W/INR Collected: 02/18/2018 Status: F Source: [place] 1:15 PM [facility] REPOSITORY TYPE CODE TESTS RESULT OUT OF RANGE REFERENCE UNITS LAB L300.4150 11.7-14.9 SECONDS High PROTIME 18.9 LAB L300.4200 Normal INR 1.6 Performed By: #### [id number] #### [facility] [address] [place], [address] CNPJosé Luis Observed: 02/03/2018 Status: COMPLETED Source: [place] 12:00 AM CLINIC OTHER CAMPUS REPOSITORY Telephone (AGVASACC) TYRON COON ([id number]) 1935 M NFR Date Time Provider Department 02/03/18 ELGIN CARVAJAL During your visit today, we recorded the following information about you: Allergies As of Date: 02/03/2018 Noted Allergy Reaction AMOXICILLIN 06/01/2005 4 - Hives SULFA (SULFONAMIDE ANTIBIOTICS) 10/17/2007 2 - Rash Comments: Aching and shaking. LISINOPRIL 03/01/2011 2 - Rash Comments: was causing eczema reaction PENICILLINS 03/19/2017 2 - Rash PLAVIX (CLOPIDOGREL BISULFATE) 06/01/2005 Comments: itch Date Reviewed: 01/15/2018 Reviewed by: Charlene Lemos LPN - Fully Assessed Reason for Visit: Orders [681] Primary Visit Diagnosis:Essential hypertension [I10] Other Visit Diagnosis:Ascending aortic aneurysm (HCC) [I71.2] Order(s):BASIC METABOLIC PNL [SQBMP] Order #: [id number] FUTURE Prescriptions as of 02/03/2018 Sig: METOPROLOL TARTRATE 25 MG TAB* Take 25 mg by mouth once mary* WARFARIN 2.5 MG TABLET Take 2.5 mg by mouth daily as* ISOSORBIDE MONONITRATE ER 30 * Take 30 mg by mouth once mary* FLUOCINONIDE 0.05 % TOPICAL O* APPLY TO WORST AREAS OR MORE * AMLODIPINE 5 MG TABLET Take 1 tablet by mouth once d* Patient not taking: Reported on 01/15/2018 ASPIRIN 81 MG TABLET,DELAYED * Take 81 mg by mouth once mary* * FISH OIL 1,000 MG CAPSULE one capsule daily * CLARITIN 10 MG TABLET Take one(1) tablet daily as n* * MULTIVITAMIN TABLET Take one(1) tablet daily. Problem List As Of Date 02/03/2018 Noted Resolved Diverticulosis of colon (without mention of hem* 06/02/2013 COMPLIC-RESPIR SYST [997.3] 03/29/2008 Sarcoidosis [D86.9] More... More... Essential hypertension [I10] More... Diarrhea [R19.7] 06/02/2013 Benign neoplasm of colon [D12.6] More... OPEN WOUND SITE NOS [T14.8XXA] INVALID FOR*03/29/2008 Other malignant neoplasm of skin, site unspecif*INVALID FOR* More... SOLAR LENGINES///DYSCHROMIA OTHER [L81.9] INVALID FOR*03/29/2008 DERMATITIS NOS [L25.9] INVALID FOR*03/29/2008 XEROSIS///SEBACEOUS GLAND DIS NEC [L73.8] INVALID FOR*03/29/2008 OTHER ATOPIC DERMATITIS [L20.89] INVALID FOR*03/29/2008 PRURITIC DISORDER NOS [L29.9] INVALID FOR*03/29/2008 EXCORIATION///SUPERFICIAL INJURY NEC [T07.XXXA] INVALID FOR*03/29/2008 Routine General Medical Examination at a Health*INVALID FOR*06/02/2013 More... Malignant neoplasm of other and unspecified wendi*INVALID FOR* More... Psychosexual Dysfunction with Inhibited Sexual *INVALID FOR* More... OVERWEIGHT [E66.3] INVALID FOR* More... Edema [R60.9] INVALID FOR* More... DERMATITIS NOS [L25.9] INVALID FOR*01/26/2009 Disturbance of skin sensation [R20.9] INVALID FOR*06/02/2013 Herpes zoster without mention of complication [*INVALID FOR*06/02/2013 Pyoderma, unspecified [L08.0] INVALID FOR*06/02/2013 PERIPH VASCULAR DIS NOS [I73.9] INVALID FOR* Hyperlipidemia [E78.5] INVALID FOR* More... 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 Macular hole, right eye [H35.341] INVALID FOR* Vitreous degeneration of left eye [H43.812] INVALID FOR* Neoplasm of Uncertain Behavior(NUB) of skin [D4*INVALID FOR* Actinic skin damage [L57.8] INVALID FOR* Solar lentigo [L81.4] INVALID FOR*06/02/2013 Other seborrheic keratosis [L82.1] INVALID FOR* Chronic anemia [D64.9] INVALID FOR* PMR (polymyalgia rheumatica) (HCC) [M35.3] INVALID FOR*06/24/2017 More... Atrial arrhythmia [I49.8] INVALID FOR* Encounter Status:Closed by CHRIS AVALOS CNP on 02/04/18 PROTHROMBIN TIME W/INR Collected: 01/31/2018 Status: F Source: [place] 10:15 AM [facility] REPOSITORY TYPE CODE TESTS RESULT OUT OF RANGE REFERENCE UNITS LAB L300.4150 11.7-14.9 SECONDS High PROTIME 15.3 LAB L300.4200 Normal INR 1.2 Performed By: #### [id number] #### [facility] [address] [place], [place], [id number] PROTHROMBIN TIME W/INR Collected: 01/24/2018 Status: F Source: [place] 11:43 AM [facility] REPOSITORY TYPE CODE TESTS RESULT OUT OF RANGE REFERENCE UNITS LAB L300.4150 11.7-14.9 SECONDS Normal PROTIME 13.5 LAB L300.4200 Normal INR 1.0 Performed By: #### [id number] #### [facility] [address] [place], [address] PROTHROMBIN TIME W/INR Collected: 01/17/2018 Status: F Source: [place] 11:30 AM [facility] REPOSITORY Order Comment: Comments: STANDING Order Comments: STANDING Order TYPE CODE TESTS RESULT OUT OF RANGE REFERENCE UNITS LAB L300.4150 11.7-14.9 SECONDS Normal PROTIME 14.1 LAB L300.4200 Normal INR 1.1 Performed By: #### [id number] #### [facility] [address] [place], [address] HISTORY PHYSICAL Observed: 01/15/2018 Status: COMPLETED Source: [place] 1:41 PM CLINIC OTHER CAMPUS REPOSITORY HNO ID: [id number] Author: Elgin Carvajal Service: (none) Author Type: Physician Type: HANDP Filed: 01/15/2018 2:19 PM Note Text: Tyron Coon is a 83-year-old man referred for evaluation of an ascending aortic aneurysm. He's being evaluated for dyspnea. This evaluation at [facility] included 2-D echo, showing no valvular abnormalities and normal left ventricular function; cardiac catheterization revealing no significant coronary lesions; and a CT of the chest with contrast showing the ascending aorta measured 5.2 centers in diameter, without comparison to previous studies. On this basis he was referred for further evaluation. He is treated for hypertension. A beta jhony was recently added to his medical regimen. He has no history of previous cardiac disease. He has undergone a right thoracotomy for diagnosis for sarcoidosis in the remote past. He is currently asymptomatic denying any chest pain or pressure. There is no family history of aortic aneurysm or dissection. 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 He recently started anticoagulation with Coumadin for atrial fibrillation. REVIEW OF SYSTEMS: GENERAL: Fever - No Chills - No Night sweats - No Changes in weight - No NEUROLOGICAL: Headaches - No Seizures - No Passing out - No History of stroke or mini-stroke - No Head injury or trauma - No Numbness, tingling or sensation of pins and needles - No HEAD, EYES, EARS, NOSE, AND THROAT: Changes in hearing - No Changes in vision - No Nose bleeds - No CARDIOVASCULAR: Chest pain or pressure - No Palpitations - No Valvular heart disease - No High blood pressure - Yes Irregular heart rate - Yes Heart attack - No Heart failure - No High Cholesterol - No History of rheumatic fever - No History of Scarlet fever - No History of atrial fibrillation - Yes RESPIRATORY: Cough - No Wheezing - No Shortness of breath - No Shortness of breath with exertion - Yes Coughing up blood - No Asthma - No Bronchitis - No Blood clot in your lung - No GASTROINTESTINAL: Abdominal discomfort - No Nausea - No Vomiting - No Diarrhea - No Constipation - No Difficulty swallowing - No Pain with swallowing - No Stomach pain after eating - No Passing blood with bowel movement - No Black tarry stool - No History of stomach ulcers - No Acid reflux or heartburn - No GENITOURINARY: GENITOURINARY: EXTREMITY: Edema (swelling) - No Intermittent claudication (pain with walking) - No MUSCULOSKELETAL: Joint pain - No Joint swelling - No Back pain - No Muscle pain or ache - No Skin: Rash - No Lesions - No Sores - No Ulcers - No Tenderness - No Skin cancer - No HEMATOLOGY: Bleeding disorder - No Easy bruising - No Anemia - No Cancer - No Blood transfusions - No Blood clots - No ENDOCRINE: Diabetes - No Thyroid disorder - No PSYCHOLOGICAL: Depression - No Anxiety - No OTHER: I have reviewed Heart Catherization and 2D echocardiogram. I reviewed the CT report do not have images yet; is being loaded at this time. On examination, he appears well and is breathing comfortably. Vitals signs are BP 150/88 (BP Site: Left Arm) Pulse (!) 59 Resp 12 Ht 5' 8 (1.727 m) Wt 194 lb (88 kg) SpO2 97% BMI 29.50 kg/m? . There is no JVD. No cervical or supraclavicular adenopathy is palpated. The chest is symmetrical without deformity. Breath sounds are clear bilaterally. The cardiac rhythm is regular. There are no rubs, gallops, or murmurs. The carotid, subclavian, and radial pulses are 2+ and equal bilaterally. The abdomen is soft and non-tender. There are no abdominal masses. There is no hepatojugular reflux. There is no pretibial edema. There is no clubbing or cyanosis. In summary, Tyron Coon has a an ascending aortic aneurysm measuring up to 5.2 cm in maximum diameter by report; I do not have images at hand yet.. The predicted average size is 3.2 cm , giving a ratio of 1.6 x normal. The aortic size index is 2.53 cm/m2. The cross sectional area to height ratio is 12. Given these calculations, surgical resection and replacement of the ascending aorta is not indicated at this time. I recommend serial surveillance of the aorta with periodic CT scans of the chest with contrast, the next scan to be performed in 6 months. He has had addition of beta jhony to the medical regimen. He has been advised to avoid strenuous heavy lifting involving a Valsalva maneuver; to seek immediate medical attention for any episode of severe chest or back pain; and to advise caregivers of the presence of an enlarged thoracic aorta. Calculations: [facility] [place] Aortic cross sectional area to height ratio = 12.3 Cross sectional area (cm2) / height (m2) cross sectional area = r2 * 3.1415 ratio > 10 significant Aortic size index = 2.53 ( Body surface area is 2.05 meters squared.) Aortic diameter (cm) / BSA (m2) <2.75 low risk (4% per year) 2.75-4.24 moderate risk (8% per year) >4.25 high risk (20% per year) Aortic size ratio 1.6 Average aortic size at sinuses: 0.97 + (1.12 x BSA) = 3.2 Upper limit of normal: 2.1 cm per m2 of BSA significant ratio of observed to predicted: 1.4-1.5 Elgin Carvajal MD CNOV Observed: 01/15/2018 Status: COMPLETED Source: [place] 1:00 PM CLINIC OTHER CAMPUS REPOSITORY Office Visit (AGVASACC) TYRON COON ([id number]) 1935 M NFR Date Time Provider Department 01/15/18 1:00 PM ELGIN CARVAJAL During your visit today, we recorded the following information about you: Pulse Respiration Blood pressure Weight 59/minute 12/minute 150/88 88 kg Height 1.727 m Elgin Carvajal MD 01/15/2018 2:19 PM Signed Tyron Coon is a 83-year-old man referred for evaluation of an ascending aortic aneurysm. He's being evaluated for dyspnea. This evaluation at [facility] included 2-D echo, showing no valvular abnormalities and normal left ventricular function; cardiac catheterization revealing no significant coronary lesions; and a CT of the chest with contrast showing the ascending aorta measured 5.2 centers in diameter, without comparison to previous studies. On this basis he was referred for further evaluation. He is treated for hypertension. A beta jhony was recently added to his medical regimen. He has no history of previous cardiac disease. He has undergone a right thoracotomy for diagnosis for sarcoidosis in the remote past. He is currently asymptomatic denying any chest pain or pressure. There is no family history of aortic aneurysm or dissection. 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 He recently started anticoagulation with Coumadin for atrial fibrillation. REVIEW OF SYSTEMS: GENERAL: Fever - No Chills - No Night sweats - No Changes in weight - No NEUROLOGICAL: Headaches - No Seizures - No Passing out - No History of stroke or mini-stroke - No Head injury or trauma - No Numbness, tingling or sensation of pins and needles - No HEAD, EYES, EARS, NOSE, AND THROAT: Changes in hearing - No Changes in vision - No Nose bleeds - No CARDIOVASCULAR: Chest pain or pressure - No Palpitations - No Valvular heart disease - No High blood pressure - Yes Irregular heart rate - Yes Heart attack - No Heart failure - No High Cholesterol - No History of rheumatic fever - No History of Scarlet fever - No History of atrial fibrillation - Yes RESPIRATORY: Cough - No Wheezing - No Shortness of breath - No Shortness of breath with exertion - Yes Coughing up blood - No Asthma - No Bronchitis - No Blood clot in your lung - No GASTROINTESTINAL: Abdominal discomfort - No Nausea - No Vomiting - No Diarrhea - No Constipation - No Difficulty swallowing - No Pain with swallowing - No Stomach pain after eating - No Passing blood with bowel movement - No Black tarry stool - No History of stomach ulcers - No Acid reflux or heartburn - No GENITOURINARY: GENITOURINARY: EXTREMITY: Edema (swelling) - No Intermittent claudication (pain with walking) - No MUSCULOSKELETAL: Joint pain - No Joint swelling - No Back pain - No Muscle pain or ache - No Skin: Rash - No Lesions - No Sores - No Ulcers - No Tenderness - No Skin cancer - No HEMATOLOGY: Bleeding disorder - No Easy bruising - No Anemia - No Cancer - No Blood transfusions - No Blood clots - No ENDOCRINE: Diabetes - No Thyroid disorder - No PSYCHOLOGICAL: Depression - No Anxiety - No OTHER: I have reviewed Heart Catherization and 2D echocardiogram. I reviewed the CT report do not have images yet; is being loaded at this time. On examination, he appears well and is breathing comfortably. Vitals signs are BP 150/88 (BP Site: Left Arm) Pulse (!) 59 Resp 12 Ht 5' 8 (1.727 m) Wt 194 lb (88 kg) SpO2 97% BMI 29.50 kg/m? . There is no JVD. No cervical or supraclavicular adenopathy is palpated. The chest is symmetrical without deformity. Breath sounds are clear bilaterally. The cardiac rhythm is regular. There are no rubs, gallops, or murmurs. The carotid, subclavian, and radial pulses are 2+ and equal bilaterally. The abdomen is soft and non-tender. There are no abdominal masses. There is no hepatojugular reflux. There is no pretibial edema. There is no clubbing or cyanosis. In summary, Tyron Coon has a an ascending aortic aneurysm measuring up to 5.2 cm in maximum diameter by report; I do not have images at hand yet.. The predicted average size is 3.2 cm , giving a ratio of 1.6 x normal. The aortic size index is 2.53 cm/m2. The cross sectional area to height ratio is 12. Given these calculations, surgical resection and replacement of the ascending aorta is not indicated at this time. I recommend serial surveillance of the aorta with periodic CT scans of the chest with contrast, the next scan to be performed in 6 months. He has had addition of beta jhony to the medical regimen. He has been advised to avoid strenuous heavy lifting involving a Valsalva maneuver; to seek immediate medical attention for any episode of severe chest or back pain; and to advise caregivers of the presence of an enlarged thoracic aorta. Calculations: [facility] Aortic cross sectional area to height ratio = 12.3 Cross sectional area (cm2) / height (m2) cross sectional area = r2 * 3.1415 ratio > 10 significant Aortic size index = 2.53 ( Body surface area is 2.05 meters squared.) Aortic diameter (cm) / BSA (m2) <2.75 low risk (4% per year) 2.75-4.24 moderate risk (8% per year) >4.25 high risk (20% per year) Aortic size ratio 1.6 Average aortic size at sinuses: 0.97 + (1.12 x BSA) = 3.2 Upper limit of normal: 2.1 cm per m2 of BSA significant ratio of observed to predicted: 1.4-1.5 MD Elgin Elmore MD 01/15/2018 1:59 PM Signed You have an aneurysm of the ascending aorta. I do not recommend surgery at this time. A repeat CT of the chest has been ordered for June. You should: -take your blood pressure medications -avoid very heavy lifting that involves bearing down (Valsalva maneuver) -go to emergency for severe chest or back pain and inform your caregivers that you have an aneurysm. Elgin Carvajal MD Referring Provider: SKIP RATLIFF [[id number]] Allergies As of Date: 01/15/2018 Noted Allergy Reaction AMOXICILLIN 06/01/2005 4 - Hives SULFA (SULFONAMIDE ANTIBIOTICS) 10/17/2007 2 - Rash Comments: Aching and shaking. LISINOPRIL 03/01/2011 2 - Rash Comments: was causing eczema reaction PENICILLINS 03/19/2017 2 - Rash PLAVIX (CLOPIDOGREL BISULFATE) 06/01/2005 Comments: itch Date Reviewed: 01/15/2018 Reviewed by: Charlene Lemos LPN - Fully Assessed Reason for Visit: Consult TAA [969] Cmt: Ref by [facility] Visit Diagnosis:Thoracic aortic aneurysm without rupture (HCC) [I71.2] Order(s):CTA CHEST (GATED) WO/W IVCON [[id number]] Order #: [id number] FUTURE Prescriptions as of 01/15/2018 Sig: METOPROLOL TARTRATE 25 MG TAB* Take 25 mg by mouth once mary* WARFARIN 2.5 MG TABLET Take 2.5 mg by mouth daily as* ISOSORBIDE MONONITRATE ER 30 * Take 30 mg by mouth once mary* FLUOCINONIDE 0.05 % TOPICAL O* APPLY TO WORST AREAS OR MORE * ASPIRIN 81 MG TABLET,DELAYED * Take 81 mg by mouth once mary* * FISH OIL 1,000 MG CAPSULE one capsule daily * CLARITIN 10 MG TABLET Take one(1) tablet daily as n* * MULTIVITAMIN TABLET Take one(1) tablet daily. AMLODIPINE 5 MG TABLET Take 1 tablet by mouth once d* Patient not taking: Reported on 01/15/2018 Problem List As Of Date 01/15/2018 Noted Resolved Diverticulosis of colon (without mention of hem* 06/02/2013 COMPLIC-RESPIR SYST [997.3] 03/29/2008 Sarcoidosis [D86.9] More... More... Essential hypertension [I10] More... Diarrhea [R19.7] 06/02/2013 Benign neoplasm of colon [D12.6] More... OPEN WOUND SITE NOS [T14.8XXA] INVALID FOR*03/29/2008 Other malignant neoplasm of skin, site unspecif*INVALID FOR* More... SOLAR LENGINES///DYSCHROMIA OTHER [L81.9] INVALID FOR*03/29/2008 DERMATITIS NOS [L25.9] INVALID FOR*03/29/2008 XEROSIS///SEBACEOUS GLAND DIS NEC [L73.8] INVALID FOR*03/29/2008 OTHER ATOPIC DERMATITIS [L20.89] INVALID FOR*03/29/2008 PRURITIC DISORDER NOS [L29.9] INVALID FOR*03/29/2008 EXCORIATION///SUPERFICIAL INJURY NEC [T07.XXXA] INVALID FOR*03/29/2008 Routine General Medical Examination at a [facility]*INVALID FOR*06/02/2013 More... Malignant neoplasm of other and unspecified wendi*INVALID FOR* More... Psychosexual Dysfunction with Inhibited Sexual *INVALID FOR* More... OVERWEIGHT [E66.3] INVALID FOR* More... Edema [R60.9] INVALID FOR* More... DERMATITIS NOS [L25.9] INVALID FOR*01/26/2009 Disturbance of skin sensation [R20.9] INVALID FOR*06/02/2013 Herpes zoster without mention of complication [*INVALID FOR*06/02/2013 Pyoderma, unspecified [L08.0] INVALID FOR*06/02/2013 PERIPH VASCULAR DIS NOS [I73.9] INVALID FOR* Hyperlipidemia [E78.5] INVALID FOR* More... 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 Macular hole, right eye [H35.341] INVALID FOR* Vitreous degeneration of left eye [H43.812] INVALID FOR* Neoplasm of Uncertain Behavior(NUB) of skin [D4*INVALID FOR* Actinic skin damage [L57.8] INVALID FOR* Solar lentigo [L81.4] INVALID FOR*06/02/2013 Other seborrheic keratosis [L82.1] INVALID FOR* Chronic anemia [D64.9] INVALID FOR* PMR (polymyalgia rheumatica) (HCC) [M35.3] INVALID FOR*06/24/2017 More... Atrial arrhythmia [I49.8] INVALID FOR* Other instructions from your clinician: You have an aneurysm of the ascending aorta. I do not recommend surgery at this time. A repeat CT of the chest has been ordered for June. You should: -take your blood pressure medications -avoid very heavy lifting that involves bearing down (Valsalva maneuver) -go to emergency for severe chest or back pain and inform your caregivers that you have an aneurysm. Elgin Carvajal MD Level of Service: NEW PATIENT VISIT LEVEL 4 [49400] Letter Text Encounter Status:Closed by ELGIN CARVAJAL MD on 01/15/18 PROTIME W/INR Collected: 2018 Status: F Source: [place] FINGERSTICK 7:07 AM [facility] REPOSITORY TYPE CODE TESTS RESULT OUT OF RANGE REFERENCE UNITS LAB L9200.1001 11.9-14.4 SEC Normal PROTIME ISTAT 13.5 Result Comment: Reference Range 11.9 - 14.4 LAB L9200.2000 Normal INR ISTAT 1.10 Result Comment: Critical Value > 3.5 Performed By: #### L9200.0000 #### [facility] Point of Care [address] [place] [address] CBC-COMPLETE BLOOD CNT Collected: 12/27/2017 Status: F Source: [place] NO DIFF 4:48 PM [facility] REPOSITORY TYPE CODE TESTS RESULT OUT OF RANGE REFERENCE UNITS LAB L100.1000 4.4-11.0 K/mm3 Low WBC 3.7 LAB L100.1200 4.6-6.2 M/mm3 Low RBC 3.61 LAB L100.1300 13.0-16.5 g/dl Low HGB 10.8 LAB L100.1400 40-54 % Low HCT 32.4 LAB L100.1500 80-94 fL Normal MCV 89.8 LAB L100.1600 27.0-32.0 pg Normal MCH 29.9 LAB L100.1700 32-36 g/gl Normal MCHC 33.3 LAB L100.1810 11.6-14.6 % High RDW CV 15.9 LAB L100.1820 35.1-43.9 fl High RDW SD 51.4 LAB L100.1900 150-450 K/mm3 Normal PLT 233 LAB L100.2000 6.2-12.0 fl Normal MPV 10.9 Performed By: #### L100.0500, L500.2500 #### [facility] [address] [place], [place], [id number] BASIC METABOLIC Collected: 12/27/2017 Status: F Source: [place] PROFILE (BMP) 4:48 PM [facility] REPOSITORY TYPE CODE TESTS RESULT OUT OF RANGE REFERENCE UNITS LAB L501.0100 74-106 mg/dL Normal GLU 91 Result Comment: Please note revised GLUCOSE reference range effective 2017. LAB L501.1000 7-18 mg/dL High BUN 29 LAB L501.1100 0.70-1.30 mg/dL High CREAT,SERUM 1.38 Result Comment: The validity of the calculated GFR AND GFRAA in patients over 70 years has not been determined. Clinical correlation is essential. LAB L501.1110 >60 mL/min Low EST GFR 52 Result Comment: Non- GFR Calc LAB L501.1115 >60 mL/min Normal EST GFR - AA 63 Result Comment: GFR Calc LAB L501.1300 10-20 RATIO High BUN/CRE 21.0 LAB L501.2200 8.5-10.1 mg/dL CA Normal 9.9 LAB L501.5300 136-145 mmol/L NA Normal 138 LAB L501.5600 3.5-5.1 mmol/L High K 5.3 LAB L501.5900 98-107 mmol/L CL Normal 106 LAB L501.6100 21.0-32.0 mmol/L Normal CO2 27.0 LAB L501.6200 5-15 Normal GAP 5 Performed By: #### L100.0500, L500.2500 #### [facility] [address] [place], [place], [address] PROTHROMBIN TIME W/INR Collected: 12/27/2017 Status: F Source: [place] 4:48 PM [facility] REPOSITORY Order Comment: Comments: STANDING ORDER Comments: STANDING ORDER TYPE CODE TESTS RESULT OUT OF RANGE REFERENCE UNITS LAB L300.4150 11.7-14.9 SECONDS Normal PROTIME 13.6 LAB L300.4200 Normal INR 1.0 Performed By: #### L300.3900, L300.4310 #### [facility] [address] [place], [address] PARTIAL THROMBOPLAST Collected: 12/27/2017 Status: F Source: [place] TIME 4:48 PM [facility] REPOSITORY Order Comment: Comments: STANDING ORDER Comments: STANDING ORDER TYPE CODE TESTS RESULT OUT OF RANGE REFERENCE UNITS LAB L300.4310 24.1-36.2 Seconds Normal PTT 24.4 Performed By: #### L300.3900, L300.4310 #### [facility] [address] [place], [address] CHEST PA AND LATERAL Observed: 12/27/2017 Status: F Source: [place] 4:11 PM [facility] REPOSITORY [facility] Imaging Services [address] [place] [address] Chest PA and Lateral MR#: [id number] Acct: [id number] Name: TYRON COON Rep #: [id number] : 1935 M 82 From: Bull Riojas MD PCP: Skip Ratliff MD Status: REG CLI Study: Chest PA and Lateral Date of Exam: 12/27/17 Exam# [id number] Ordering Dr: Jaron Kellogg MD STUDY: X-RAY CHEST REASON FOR EXAM: Male, 82 years old. Abnormal stress test TECHNIQUE: PA and lateral views of the chest. COMPARISON: None. FINDINGS: There are fibrotic changes of the right lung. There is no demonstrated pleural abnormality. Normal size heart. Normal mediastinum and leo. Normal visualized pulmonary arteries. There are calcified plaques of the aortic arch. Normal visualized thoracic spine. There is deformity of the right fifth rib which may be postsurgical. There is no demonstrated abnormality of the visualized soft tissue structures of the upper abdomen. RAD/Chest PA and Lateral IMPRESSION: Fibrotic changes of the right lung, particularly of the right lung base. Calcified plaques of the aortic arch. Deformity of the right fifth rib which may be postsurgical. No acute cardiopulmonary disease process is seen. Electronically Signed: Bull Riojas MD at 16:33 EDT , Service support , CC: Jaron Kellogg MD; Skip Ratliff MD Inseam Trimming Machine Operator: Signed STRESS TEST ECHO W/ Observed: 12/25/2017 Status: F Source: [place] CONTRAST 10:24 AM [facility] REPOSITORY [facility] Cardiovascular Services [address] [place] [address] Stress Test Echo W/Contrast MR#: [id number] Acct: [id number] Name: TYRON COON Rep #: [id number] : 1935 82 From: Jaron Kellogg MD Primary Care: Skip Ratliff MD Status: REG CLI Ordering Dr: Jaron Kellogg MD Sex: M C Reason For Study: DYSPNEA/SOB Stress Results Protocol: Stress Echocardiogram Maximum Predicted HR: 139 bpm Target HR: 118 bpm% Maximum Pr edicted HR: 91 % DurationHeart Rate Stage (mm:ss) (bpm) BPCom ment BASELINE 61 130/78 5 ML DILUTED DEFINITY USED DURING STRESS MATEUS PROTOCOL- STAGE 1 3:00 10 1 144/70 MATEUS PROTOCOL- STAGE 2 2:21 12 6 / RECOVERY 73 130/78 Stress Duration: 5:21 mm:ss Maximum Stress HR: 126 bpm Baseline Echocardiogram Findings The estimated ejection fraction is 65 %. Stress Echo Wall motion Data Resting WMIntermediate WMStress WM Resting Wall Motion Wall Motion Stress No regional wall motion Basal anteroseptal: Mildly abnormalities noted. hypokinetic. Mid-Anterior : Hypokinetic. EKG Data Normal intervals are noted. The patient exercised according to the regular Mateus protocol for a total duration of 5:21. The maximum heart rate attained was 126 beats per minute. This was 90% of maximum predicted heart rate. The patient exercised into stage 2 of the Mateus protocol. During stress, there were no ST or T wave changes noted to suggest ischemia. No clinical angina was noted. No arrhythmias noted. Interpretation Summary The estimated ejection fraction is 65 %. Basal anteroseptal: Mildly hypokinetic Mid-Anterior : Hypokinetic Abnormal, adequate, treadmill echocardiogram. Positive for ischemia by echocardiographic criteria. The patient developed what appeared to be mid anterior and anteroseptal hypokinesis seen in 2 views at peak exercise. Decreased appropriate blood pressure response to exercise. Average exercise capacity for age. Test terminated due to dyspnea. Poor echo windows requiring Definity contrast agent may make interpretation more challenging. Final LVEF of 50%. Ordering Physician: Jaron Kellogg MD Referring Physician: Jaron Kellogg Performed By: Mary Huff RDCS 12/25/17 1024 Date Jaron Kellogg MD CC: Jaron Kellogg MD; Skip Ratliff MD Date Dictated: 12/24/17 1356 Date Transcribed: 12/25/17 1024 Inseam Trimming Machine Operator: Signed CARDIOLOGY VISIT Observed: 12/24/2017 Status: F Source: [place] REPORT 4:48 PM [facility] REPOSITORY [facility] [address] [place] [address] OFFICE VISIT Date of Service: 12/24/17 MR#: [id number] Acct: [id number] Name: TYRON COON Rep #: [id number] : 1935 Provider: Jaron Kellogg MD Age/Sex: 82/M [place] [facility] [place]: Signed HPI [facility] Chief Complaint: Routine f/u Details: Details: TYRON COON, is a 82 nondiabetic, lifelong non-smoker, with a history of hypertension, former member of the [facility] board, no previous known coronary artery disease, no previous catheterization. Patient had right-sided testicular cancer diagnosed in 1961, underwent orchiectomy followed by radiation therapy. Approximately 12 years ago the patient developed claudication in his right leg due to the radiation underwent femorofemoral bypass by Dr. Serra. 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 In addition the patient has had hypertension for many years and has been on amlodipine with chronic lower extremity edema, right greater than left. In 2014 the patient developed palpitations and underwent a fairly extensive workup including an echocardiogram dated 02/28/15 which showed normal LV size and function with an EF of 60%, unable to quantitate RVSP. At that time he underwent a stress echocardiogram which again was negative for inducible ischemia. In addition on 11/30/14 he underwent a 24-hour Holter monitor which showed sinus rhythm with first-degree block, sinus bradycardia and sinus arrhythmia and rare PVCs and PACs. Patient now notes recurrent and worsening palpitations, which occur more frequently with activity now that the weather is improving. He also reports worsening shortness of breath and dyspnea on exertion particularly with walking up inclines. He does admit to snoring, but does not have daytime somnolence. Patient underwent a repeat 2D echo with Doppler which showed normal LV function but an increase in his aortic root from 4.6-5.1 cm. We also performed a 30 day event monitor which captured several episodes of atrial fibrillation lasting an hour and 49 minutes. Patient also had an episode of slurred speech, and a carotid Doppler was performed on 12/06/17 which showed less than 50% stenosis bilaterally and no significant hemodynamic plaquing. Patient is here to discuss anticoagulation options as well as referral to Dr. Carvajal for aortic root evaluation. Patient had a stress test which was done today with results pending. In our office today's blood pressure is 132/76, and pulse is 62 and regular. His physical exam demonstrates clear lungs bilaterally, no carotid bruits, regular rate and rhythm, normal S1/S2, no murmurs detected. He has 2-3+ right-sided lower extremity edema which appears to be chronic and due to lymphatic issues. He also has chronic lower extremity edema in the left side which is 1-2+. EKG today demonstrates sinus bradycardia, normal axis, first-degree AV block, no evidence of previous myocardial infarction. Intake Vital Signs12/24/17 Height 5 ft 9 in 12/24/17 Weight: 192 lb 12/24/17 Body Mass Index (BMI) 28.3 12/24/17 Blood Pressure 132/76 12/24/17 Respiratory Rate 18 12/24/17 Pulse Rate 62 Intake Visit Reasons: Wants to discuss Coumadin Allergies Penicillins [PCN] Allergy (Verified 12/24/17 15:37) Rash Sulfa (Sulfonamide Antibiotics) Allergy (Verified 12/24/17 15:37) Other clopidogrel [From Plavix] Adverse Reaction (Verified 12/24/17 15:55) rash/itching hydrochlorothiazide Adverse Reaction (Verified 12/24/17 15:55) rash Medications Multivitamins,Therapeutic [Multivitamin] 1 tab PO DAILY 03/19/17 [History Confirmed 11/05/17] [place]-3 Fatty Acids [Fish Oil] 500 mg PO DAILY 03/19/17 [History Confirmed 11/05/17] aspirin 81 mg tablet,delayed release 81 mg PO QDAY 11/04/17 [History Confirmed 11/05/17] metoprolol succinate ER 25 mg tablet,extended release 24 hr 25 mg PO QDAY #30 tab 11/05/17 [Rx Confirmed 11/05/17] [facility] Medical History Paroxysmal atrial fibrillation (Acute) Ascending aortic aneurysm (Acute) Expressive aphasia (Acute) Neurological deficit, transient (Acute) Chronic anemia (Chronic) Hypertension (Chronic) Osteoarthritis (Chronic) PMR (polymyalgia rheumatica) (Chronic) PVD (peripheral vascular disease) (Chronic) Sarcoidosis (Chronic) Testicular cancer (Resolved) Surgical History History of orchiectomy, unilateral (Chronic) History of thoracotomy (Chronic) ORIF (Chronic) S/P femoral-femoral bypass surgery (Chronic 11/2004) H/O total hip arthroplasty (Inactive 03/2017) Family History Mother Cancer Brother Diabetes Heart disease PPM Social History Smoking Status: Never smoker alcohol intake: current alcohol intake frequency: 0-2 drinks per day Alcohol type: beer ROS Const Const: Positive for fatigue and weakness; negative for difficulty sleeping, frequent falls, headache(s) or excessive sweating Eyes Eyes: Negative for loss of peripheral vision, transient loss of vision, blurry vision or double vision ENT ENT: Negative for headache(s), dizziness, Nosebleed/epistaxis or balance problems Cardio Chest Pain: No Edema: None Muscle aches with walking: None Resp Respiratory: Positive for SOB with activity (SOB with very little activity.); negative for SOB at rest, SOB orthopnea\SOB lying down or paroxysmal nocturnal dyspnea GI GI: Negative nausea or heartburn : Negative for hematuria Musc Musc: Negative for muscle aches/ myalgia, muscle weakness, joint pain or balance problems Skin Skin: Negative non-healing lesions, unusual bruising or rash Neuro Neuro: Positive for weakness; negative for frequent falls, blurry vision, headache(s), dizziness, lightheadedness, orthostatic symptoms or double vision [place] Hematologic/Lymphatic: Negative for easy bruising Endo Endo: Positive for fatigue; negative for excessive sweating or increased thirst/drinking Psych Psych: Negative for anxiety or depression Allergy Allergy/Immunology: Negative for hives, Negative for rash Cardiology Exam Const Appearance: cooperative, healthy appearing and no acute distress Nutritional Appearance: well nourished Orientation: alert, oriented x3 and oriented to person Head Head: normal to inspection, atraumatic and normocephalic Nose: external nose normal Face and Sinus: face symmetric Mouth: oral mucosae normal Eyes General: appearance normal, both eyes and all related structures Eyelids: eyelids normal Conjunctivae: conjunctivae normal Pupils: PERRL and normal by confrontation EOM: EOM intact bilaterally Neck Neck: normal visual inspection and full ROM Carotids: normal carotid upstroke Chest Chest inspection: normal inspection of the chest Auscultation: Bilateral: Clear to Auscultation Cardio Palpation: normal PMI Rate: regular rate Rhythm: regular rhythm Heart sounds: S1 normal and S2 normal GI GI: normal to inspection, no hepatosplenomegaly and bowel sounds present Neuro General: alert, oriented x3, awake, CN's II-XI intact bilaterally and moves all extremities Skin Skin: no rashes or lesions noted Extremities Pulses: Normal: Right Femoral Pulse, Left Femoral Pulse, Right Dorsalis Pedis Pulse, Left Dorsalis Pedis Pulse, Right Posterior Tibial Pulse, Left Posterior Tibial Pulse, Right Radial Pulse, Left Radial Pulse Lower Extremity Edema: None: Bilateral Psych Psychological: normal affect Assessment AND Plan 1. Paroxysmal atrial fibrillation I48.0 Plan 1. Paroxysmal atrial fibrillation: Patient has a history of palpitations, documented paroxysmal atrial fibrillation, documented slurred speech in the past, and is at high risk for possible CVA. His chads score is 3. I recommended the patient start Coumadin therapy with respect to his paroxysmal atrial fibrillation to avoid possible CVA. I would not recommend the novel new oral anticoagulants such as Eliquis or Xarelto given his age, and possible need for urgent reversal given his a sending aortic aneurysm. He will continue baby aspirin for his known peripheral vascular disease. 2. Ascending aortic aneurysm I71.2 Plan 2. A sending aortic root aneurysm: The patient's aneurysm has increased from 4.6-5.1 cm in 3 years time. We will refer the patient to Dr. Carvajal at [facility] for consultation with respect to possible aneurysm repair versus medical management and serial monitoring. My preference would be for serial monitoring given his age and known peripheral vascular disease. His blood pressure is optimized at this time. 3. Return office in 4 months. This note was generated using a voice recognition system and there may be incorrect words, spelling or punctuation that were not noted when reviewing the office note prior to saving. Plan Detail Follow Up +4M ([place]) Coding Level of Care Code Off vis,est,level 3 Diagnoses Paroxysmal atrial fibrillation I48.0 Ascending aortic aneurysm I71.2 Coding Level of Care Code Off vis,est,level 3 Diagnoses Paroxysmal atrial fibrillation I48.0 Ascending aortic aneurysm I71.2 12/24/17 1648 <Electronically signed by Jaron Kellogg MD> Date Jaron Kellogg MD Cosigner Signature: Date (if applicable) CC: Skip Ratliff MD CAROTID DUPLEX Observed: 12/06/2017 Status: F Source: [place] ULTRASOUND 2:55 PM [facility] REPOSITORY [facility] Cardiovascular Services [address] [place] [id number] Carotid Duplex Ultrasound 12/06/17 1307 MR#: [id number] Acct: [id number] Name: TYRON COON Rep #: [id number] : 1935 82 From: Aaron Barrientos MD Attending Dr: Jaron Kellogg MD Status: REG CLI Ordering Dr: Jaron Kellogg MD Date: 12/06/17 Location: [facility] Sex: M C Admitted: Reason For Study: TIA Rt. Velocities/BP Lt. Velocities/BP Prox CCA 65/8 cm/sec. Prox CCA 96/12 cm/sec. Mid CCA 55/7 cm/sec. Mid CCA 63/9 cm/sec. Dist CCA 39/6 cm/sec. Dist CCA 49/8 cm/sec. Prox ICA 40/5 cm/sec. Prox ICA 76/15 cm/sec. Mid ICA 66/17 cm/sec. Mid ICA 66/18 cm/sec. Dist ICA 62/11 cm/sec. Dist ICA 85/20 cm/sec. Rt. ICA/CCA = 1.2. Lt. ICA/CCA = 1.34. Prox ECA 74/1 cm/sec. Prox ECA 84/2 cm/sec. Rt. Vert. 40/7 cm/sec. Lt. Vert. 52/10 cm/sec. Right Extracranial There is intimal thickening but no significant atherosclerotic plaque noted in the right common carotid artery. There is intimal thickening but no significant atherosclerotic plaque noted in the right internal carotid artery. There is intimal thickening but no significant atherosclerotic plaque noted in the right external carotid artery. Antegrade flow is noted in the right vertebral artery. Left Extracranial There is heterogeneous, smooth atherosclerotic plaque noted in the left common carotid artery. There is heterogeneous, irregular atherosclerotic plaque noted in the left internal carotid artery. There is heterogeneous, smooth atherosclerotic plaque noted in the left external carotid artery. Antegrade flow is noted in the left vertebral artery. Procedure Carotid Duplex 07858. Exam performed in department. Interpretation Summary No hemodynamically significant plague or stenosis bilateral internal carotids with minimal smooth plague on the left and <50% stenosis bilaterally. Normal flow bilateral external carotids Patent and antegrade vertebrals bilaterally. Ordering Physician: Jaron Kellogg Referring Physician: Skip Ratliff Performed By: Jeni Corrigan, RDCS, RVT 12/06/17 1455 Date Aaron Barrientos MD CC: Jaron Kellogg MD; Skip Ratliff MD Date Dictated: 12/06/17 1307 Date Transcribed: 12/06/17 8034 Inseam Trimming Machine Operator: Signed CREATININE FINGERSTICK Collected: 12/03/2017 Status: F Source: [place] 7:36 AM [facility] REPOSITORY TYPE CODE TESTS RESULT OUT OF RANGE REFERENCE UNITS LAB L9100.0210 0.70-1.30 mg/dL Normal CREATININE WB 1.2 LAB L9100.0220 >60 mL/min Low EGFR WB 59.0000 Performed By: #### L9100.0200 #### [facility] Point of Care [address] [place] [address] CHEST WITH CONTRAST Observed: 12/03/2017 Status: F Source: [place] 7:22 AM [facility] REPOSITORY [facility] Imaging Services [address] [place] [address] Chest WITH Contrast MR#: [id number] Acct: [id number] Name: TYRON COON Rep #: [id number] : 1935 M 82 From: Isaiah Arevalo MD PCP: Skip Ratliff MD Status: REG CLI Study: Chest WITH Contrast Date of Exam: 12/03/17 Exam# [id number] Ordering Dr: Jaron Kellogg MD ADDENDUM by Isaiah Arevalo MD on 12/03/[address]/Chest WITH Contrast 12/03/17 1440 Date cc: Jaron Kellogg MD; Skip Ratliff MD * Signed ADDENDUM by Isaiah Arevalo MD on 12/03/17 at 1433 ADDENDUM This is an addendum report for voice recognition error. In the body of the report, it should be stated that there is dilatation of the ascending thoracic aorta with a transverse dimension of 5.2 cm. Electronically Signed: Isaiah Arevalo MD at 14:33 EDT Tel [phone], Service support , 12/03/17 1433 Date cc: Jaron Kellogg MD; Skip Ratliff MD * Signed STUDY: CT CHEST WITH CONTRAST REASON FOR EXAM: Male, 82 years old. Dilated aortic root. Dyspnea. History of testicular carcinoma. RADIATION DOSAGE (If Supplied By Facility): CTDIvol = ( 18.21 ) mGy, DLP = ( 458.75 ) mGycm TECHNIQUE: Transaxial imaging was performed following intravenous administration of 100 ml of Isovue 300 contrast material. Multiplanar coronal and sagittal images were reformatted. Individualized dose optimization techniques were used for this CT. COMPARISON: None. FINDINGS: Mild degree of bony increase markings at the lung bases suggestive of scarring. Increased linear markings are also seen in the right middle lobe with focal plaque formation along the lateral aspect of the right middle lobe suggestive of scarring. There is no demonstrated pleural abnormality. There are calcifications of the coronary arteries. Normal mediastinum. Normal hilar regions. Normal enhanced pulmonary arteries. There is dilatation of the descending aorta with a transverse dimension of 5.2 cm. There is demineralization of the thoracic spine. There is a 1.5 cm x 1.3 cm cyst in the medial aspect of the right lobe of the liver adjacent to the gallbladder fossa. This also evidence of a 2.7 cm x 1.9 cm cyst in the dome of the right lobe of the liver posteriorly as well as smaller cysts in the anterior aspect of the dome of the right lobe of the liver. Tiny gallstones are seen within the gallbladder lumen. CT/Chest WITH Contrast IMPRESSION: Dilated ascending aorta with a transverse dimension of 5.2 cm. Findings suggestive of scarring at the lung bases and lateral aspect of the right middle lobe. Electronically Signed: Isaiah Arevalo MD at 11:23 EDT Tel [phone], Service support , CC: Jaron Kellogg MD; Skip Ratliff MD Inseam Trimming Machine Operator: Signed ECHOCARDIOGRAM COMPLETE Observed: 11/19/2017 Status: F Source: [place] 11:14 AM [facility] REPOSITORY [facility] Cardiovascular Services [address] [place] [address] 139[address] Echo Complete W/ Contrast 11/18/17 1007 MR#: [id number] Acct: [id number] Name: TYRON COON Rep #: [id number] : 1935 82 From: Jaron Kellogg MD Attending Dr: Jaron Kellogg MD Status: REG CLI Ordering Dr: Jaron Kellogg MD Date: 11/18/17 Location: [facility] Sex: M C Admitted: Reason For Study: DYSPNEA Procedure This was a 2D Doppler, Color Flow transthoracic echocardiogram. Exam performed portable in patient room. Left Ventricle Normal size and thickness. The estimated ejection fraction is 65 %. Stage 1 diastolic dysfunction. No regional wall motion abnormalities noted. Right Ventricle Normal size and thickness. Normal systolic function. Atria Normal left atrium. Normal right atrium. Normal atrial septum. Mitral Valve The mitral valve is structurally normal. No prolapse or stenosis seen. Trivial mitral valve insufficiency. Tricuspid Valve Normal tricuspid valve. Trivial tricuspid valve insufficiency. Right ventricular systolic pressure estimated to be 33 mmHg. Aortic Valve Trisinus/trileaflet aortic valve. Mild (1+) aortic valve insufficiency. Pulmonic Valve Normal pulmonic valve. Trivial pulmonic valve insufficiency. Great Vessels Moderately dilated aortic root. Normal arch. Normal inferior vena cava. Inferior vena cava collapse with sniff. Pericardium/Pleural No pericardial effusion. Medication 22 gauge I.V. with prn adaptor inserted into left arm. Diluted definity 5ml given slow IV push to enhance endocardial definition. MMode/2D Measurements AND Calculations LVIDd: 4.9 cm IVSd: 1.2 cm Ao root diam: 4.8 cm LVIDs: 2.6 cm LVPWd: 1.0 cm RVDd: 4.1 cm FS: 48.2 % LAV(MOD-bp): 63.3 ml EDV(MOD-sp4): 165.5 ml EDV(MOD-sp2): 110.9 ml LAV(MOD-bp) Indexed: 31.7 ml/m2 ESV(MOD-sp4): 59.8 ml EF(MOD-sp2): 60.1 % LAV(MOD-sp2): 76.4 ml EF(MOD-sp4): 63.9 % LAV(MOD-sp4): 51.7 ml SV(MOD-sp4): 105.7 ml SV(MOD-sp2): 66.7 ml LA A4 area: 18.9 cm2 RA A4 area: 17.5 cm2 Doppler Measurements AND Calculations MV E max hank: 83.1 cm/sec Lat Peak E' Hank: 7.0 cm/sec Med Peak E' Hank: 6.0 cm/sec MV A max hank: 104.6 cm/sec E/E' lat: 11.9 E/E' med: 13.8 MV E/A: 0.79 Ao V2 max: 140.4 cm/sec AI max hank: 454.9 cm/sec LV V1 max: 114.9 cm/sec Ao max P.9 mmHg AI max P.8 mmHg LV V1 max P.3 mmHg AI dec slope: 208.7 cm/sec2 AI P1/2t: 638.3 msec PA V2 max: 75.1 cm/sec PI end-d hank: 92.0 cm/sec TR max hank: 265.2 cm/sec TR max P.2 mmHg Interpretation Summary The estimated ejection fraction is 65 %. Stage 1 diastolic dysfunction. Trivial mitral valve insufficiency. Trivial tricuspid valve insufficiency. Right ventricular systolic pressure estimated to be 33 mmHg. Mild (1+) aortic valve insufficiency. Moderately dilated aortic root. The study was technically difficult. There is no comparison study available. Contrast injection was performed. Ordering Physician: Jaron Kellogg Referring Physician: SKIP RATLIFF Performed By: Shiela Akers, RDCS, RVT 11/19/17 1114 Date Jaron Kellogg MD CC: Jaron Kellogg MD; Skip Ratliff MD Date Dictated: 11/18/17 1007 Date Transcribed: 11/19/17 1114 Inseam Trimming Machine Operator: Signed CBC W/DIFF, AUTOMATED Collected: 11/07/2017 Status: F Source: [place] 2:47 PM [facility] REPOSITORY TYPE CODE TESTS RESULT OUT OF RANGE REFERENCE UNITS LAB L100.1000 4.4-11.0 K/mm3 Low WBC 4.2 LAB L100.1200 4.6-6.2 M/mm3 Low RBC 3.74 LAB L100.1300 13.0-16.5 g/dl Low HGB 10.7 LAB L100.1400 40-54 % Low HCT 33.1 LAB L100.1500 80-94 fL Normal MCV 88.5 LAB L100.1600 27.0-32.0 pg Normal MCH 28.6 LAB L100.1700 32-36 g/gl Normal MCHC 32.3 LAB L100.1810 11.6-14.6 % High RDW CV 17.1 LAB L100.1820 35.1-43.9 fl High RDW SD 55.1 LAB L100.1900 150-450 K/mm3 Normal PLT 258 LAB L100.2000 6.2-12.0 fl Normal MPV 10.5 LAB L100.2100 47-70 % Normal NEUT% 61.3 LAB L100.2200 19-41 % Normal LY% 26.3 LAB L100.2300 0-10 % High MONO% 10.1 LAB L100.2400 0-5 % Normal EO% 1.9 LAB L100.2500 0-1 % Normal BASO% 0.2 LAB L100.2550 0.0-0.9 % Normal IM GRAN % 0.200 Result Comment: IG% - Immature Granulocytes (promyelocytes, myelocytes and metamyelocytes) > 1% indicates that a LEFT SHIFT is Present. LAB L100.2620 2.0-7.7 X10 3/uL Normal Absolute Neut 2.5 LAB L100.2720 0.83-4.51 X10 3/ul Normal Absolute Lymph 1.09 Performed By: #### L100.0100 #### [facility] [address] [place], [address] T4 TOTAL, THYROXIN Collected: 11/07/2017 Status: F Source: [place] 2:47 PM [facility] REPOSITORY TYPE CODE TESTS RESULT OUT OF RANGE REFERENCE UNITS LAB L501.9310 4.5-12.1 ug/dL T4 Normal THYROXIN 5.1 Performed By: #### L501.9310, L501.9520 #### [facility] [address] [place], [address] THYROID STIM HORMONE Collected: 11/07/2017 Status: F Source: [place] ([facility]SH) 2:47 PM [facility] REPOSITORY TYPE CODE TESTS RESULT OUT OF RANGE REFERENCE UNITS LAB L501.9520 0.358-3.74 uIU/mL Normal TSH 1.93 Performed By: #### L501.9310, L501.9520 #### [facility] [address] [place], [address] CARDIOLOGY VISIT Observed: 11/05/2017 Status: F Source: [place] REPORT 4:12 PM [facility] REPOSITORY [facility] [place] [address] OFFICE VISIT Date of Service: 11/05/17 MR#: [id number] Acct: [id number] Name: TYRON COON Rep #: [id number] : 1935 Provider: Jaron Kellogg MD Age/Sex: 82/M [place] [facility] Status: Signed HPI HPI Chief Complaint: Palps, dyspnea, SOB Details: TYRON COON, is a 82 nondiabetic, lifelong non- smoker, with a history of hypertension, former member of the [facility] board, no previous known coronary artery disease, no previous catheterization. Patient had right-sided testicular cancer diagnosed in 1961, underwent orchiectomy followed by radiation therapy. Approximately 12 years ago the patient developed claudication in his right leg due to the radiation underwent femorofemoral bypass by Dr. Serra. 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 In addition the patient has had hypertension for many years and has been on amlodipine with chronic lower extremity edema, right greater than left. In 2014 the patient developed palpitations and underwent a fairly extensive workup including an echocardiogram dated 02/28/15 which showed normal LV size and function with an EF of 60%, unable to quantitate RVSP. At that time he underwent a stress echocardiogram which again was negative for inducible ischemia. In addition on 11/30/14 he underwent a 24-hour Holter monitor which showed sinus rhythm with first-degree block, sinus bradycardia and sinus arrhythmia and rare PVCs and PACs. Patient now notes recurrent and worsening palpitations, which occur more frequently with activity now that the weather is improving. He also reports worsening shortness of breath and dyspnea on exertion particularly with walking up inclines. He does admit to snoring, but does not have daytime somnolence. In our office today's blood pressure is 140/72, and pulse is 68 and regular. His physical exam demonstrates clear lungs bilaterally, no carotid bruits, regular rate and rhythm, normal S1/S2, no murmurs detected. He has 2-3+ right-sided lower extremity edema which appears to be chronic and due to lymphatic issues. He also has chronic lower extremity edema in the left side which is 1-2+. EKG today demonstrates sinus bradycardia, normal axis, first-degree AV block, no evidence of previous myocardial infarction. Intake Vital Signs11/05/17 Height 5 ft 9 in 11/05/17 Weight: 200 lb 11/05/17 Body Mass Index (BMI) 29.5 11/05/17 Blood Pressure 140/72 11/05/17 Respiratory Rate 18 11/05/17 Pulse Rate 68 Intake Visit Reasons: Irreg HR (self) Allergies Penicillins [PCN] Allergy (Verified 11/05/17 15:24) Rash Sulfa (Sulfonamide Antibiotics) Allergy (Verified 11/05/17 15:24) Other Medications Multivitamins,Therapeutic [Multivitamin] 1 tab PO DAILY 03/19/17 [History Confirmed 11/05/17] [place]-3 Fatty Acids [Fish Oil] 500 mg PO DAILY 03/19/17 [History Confirmed 11/05/17] aspirin 81 mg tablet,delayed release 81 mg PO QDAY 11/04/17 [History Confirmed 11/05/17] metoprolol succinate ER 25 mg tablet,extended release 24 hr 25 mg PO QDAY #30 tab 11/05/17 [Rx Confirmed 11/05/17] [facility] Medical History Chronic anemia (Chronic) Hypertension (Chronic) Osteoarthritis (Chronic) PMR (polymyalgia rheumatica) (Chronic) PVD (peripheral vascular disease) (Chronic) Sarcoidosis (Chronic) Testicular cancer (Resolved) Surgical History History of orchiectomy, unilateral (Chronic) History of thoracotomy (Chronic) ORIF (Chronic) S/P femoral-femoral bypass surgery (Chronic 11/2004) H/O total hip arthroplasty (Inactive 03/2017) Family History Mother Cancer Brother Diabetes Heart disease PPM Social History Smoking Status: Never smoker alcohol intake: current alcohol intake frequency: 0-2 drinks per day Alcohol type: beer ROS Const Const: Negative for fatigue, weakness, difficulty sleeping, frequent falls, headache(s) or excessive sweating Eyes Eyes: Negative for loss of peripheral vision, transient loss of vision, blurry vision or double vision ENT ENT: Negative for headache(s), dizziness, Nosebleed/epistaxis or balance problems Cardio Chest Pain: No Palpitations: Yes feels like its: fast, skipping, irregular Edema: Right (chronic, new left foot and ankle edema), Left, Bilateral (Chronic RLE edema new +1 pitting RLE) Muscle aches with walking: None Resp Respiratory: Positive for SOB with activity (when bending over); negative for SOB at rest, SOB orthopnea\SOB lying down or paroxysmal nocturnal dyspnea Additional Details: STOP-BANG Assessment: 1. Do you snore? [y] 2. Are you frequently tired during the day? [y] 3. Have you been observed gasping or choking while asleep? [y] 4. Do you have high blood pressure? [y] 5. BMI - greater than 35kg/m2? [] 6. Age - over 50 years old? [y] 7. Neck Circumference - greater than 37 cm for females or 40 cm for males? [] 8. Gender - male? [y] Total STOP-BANG score = [] which indicates [] risk for obstructive sleep apnea (yes to 3 or more questions = high risk of sleep apnea). GI GI: Negative nausea or heartburn : Negative for hematuria Musc Musc: Negative for muscle aches/ myalgia, muscle weakness, joint pain or balance problems Skin Skin: Negative non-healing lesions, unusual bruising or rash Neuro Neuro: Negative for weakness, frequent falls, blurry vision, headache(s), dizziness, lightheadedness, orthostatic symptoms or double vision Jonathon Hematologic/Lymphatic: Negative for easy bruising Endo Endo: Negative for fatigue, excessive sweating or increased thirst/drinking Psych Psych: Negative for anxiety or depression Allergy Allergy/Immunology: Negative for hives, Negative for rash Cardiology Exam Const Appearance: cooperative, healthy appearing and no acute distress Nutritional Appearance: well nourished Orientation: alert, oriented x3 and oriented to person Head Head: normal to inspection, atraumatic and normocephalic Nose: external nose normal Face and Sinus: face symmetric Mouth: oral mucosae normal Eyes General: appearance normal, both eyes and all related structures Eyelids: eyelids normal Conjunctivae: conjunctivae normal Pupils: PERRL and normal by confrontation EOM: EOM intact bilaterally Neck Neck: normal visual inspection and full ROM Carotids: normal carotid upstroke Chest Chest inspection: normal inspection of the chest Auscultation: Bilateral: Clear to Auscultation Cardio Palpation: normal PMI Rate: regular rate Rhythm: regular rhythm Heart sounds: S1 normal and S2 normal GI GI: normal to inspection, no hepatosplenomegaly and bowel sounds present Neuro General: alert, oriented x3, awake, CN's II-XI intact bilaterally and moves all extremities Skin Skin: no rashes or lesions noted Extremities Pulses: Normal: Right Femoral Pulse, Left Femoral Pulse, Right Dorsalis Pedis Pulse, Left Dorsalis Pedis Pulse, Right Posterior Tibial Pulse, Left Posterior Tibial Pulse, Right Radial Pulse, Left Radial Pulse Lower Extremity Edema: +1: Left, +3: Right Psych Psychological: normal affect Assessment AND Plan 1. Palpitation R00.2 Plan 1. Palpitations: I am concerned the patient's palpitation may be affecting his overall performance, and definitely are worse than over a year ago. He is on no beta-jhony controlling medications and has significant lower extremity edema, I am sure made worse by his amlodipine. I recommended that the patient undergo a 2D echo with Doppler to document his LV function and pulmonary pressures. If this is abnormal he may require a coronary angiogram. If his echo is negative for LV dysfunction I recommend he undergo a treadmill echocardiogram to assess his blood pressure response to exercise as well as for any palpitations or arrhythmias. If his stress test is grossly abnormal he may require a diagnostic coronary angiogram. Given the patient's right femorofemoral bypass would recommend coronary angiography via the left groin or the radial approach. In addition I recommend he undergo a 30 day event monitor to try and capture whatever palpitations he may having. Orders Orders: 2. Hypertension I10 Plan 2. Hypertension: Recommend discontinuation of amlodipine which may be making his lower extremity edema worse, and that he be switched to Toprol-XL 25 mg p.o. daily. Repeat blood pressure check in 2 weeks time. Orders Orders: 3. Chronic anemia D64.9 Plan 3. Chronic anemia: Patient states that he has had chronic anemia for many many years, and apparently no one has been able to figure out why. This may be contributing to his shortness of breath. Recommend obtaining a CBC. 4. Return office in 4 months. Orders Orders: Plan Detail Other Medications New: Discontinued: Follow Up +4M ([place]) +2 Weeks ([place]) Coding Level of Care Code Off vis,new,level 4 Diagnoses Palpitation R00.2 Hypertension I10 Chronic anemia D64.9 Coding Level of Care Code Off vis,new,level 4 Diagnoses Palpitation R00.2 Hypertension I10 Chronic anemia D64.9 11/05/17 1612 <Electronically signed by Jaron Kellogg MD> Date Jaron Kellogg MD Cosign Signature: Date (if applicable) CC: Skip Ratliff MD 12 LEAD EKG PERFORMED Observed: 11/05/2017 Status: F Source: [place] [facility] [place] [facility] REPOSITORY [facility] [address] [place] [address] 12 Lead EKG performed by [facility] 11/05/171533 MR#: [id number] Acct: [id number] Name: TYRON COON Rep #: [id number] : 1935 82 From: Jaron eKllogg MD Attending Dr: Jaron Kellogg MD Status: DEP AMB Ordering Dr: Jaron Kellogg MD Date: 11/05/17 [place] [facility] [place] M C Admitted: [facility]12 Lead EKG performed by [facility] ECG Report Interpretation Sinus Bradycardia -First degree A-V block Mykel = 236Low voltage with rightward P-axis and rotation -possible pulmonary disease. ABNORMAL Electronically signed on 11/18/2017 at 09:48 by Jaron Kellogg 11/18/17 0951 Date Jaron Kellogg MD CC: Skip Ratliff MD Date Dictated: 11/05/17 1534 Date Transcribed: 11/05/17 153 Inseam Trimming Machine Operator: Signed ORTHOPEDIC VISIT Observed: 09/30/2017 Status: F Source: [place] REPORT 8:01 AM [facility] REPOSITORY [facility] Orthopaedics AND Sports Medicine [address] [place] [address] [address] [place] [address] OFFICE VISIT Date of Service: 09/23/17 MR#: [id number] Acct: [id number] Name: TYRON COON Rep #: [id number] : 1935 Provider: Henrry Moreland DO Age/Sex: 82/M Location: [facility] Status: Signed Intake Intake Visit Reasons: RIGHT HIP Is patient in pain?: No Allergies Penicillins [PCN] Allergy (Verified 09/23/17 10:53) Rash Sulfa (Sulfonamide Antibiotics) Allergy (Verified 09/23/17 10:53) Other Medications Amlodipine [Norvasc] 5 mg PO DAILY 03/19/17 [History Confirmed 09/23/17] Multivitamins,Therapeutic [Multivitamin] 1 tab PO DAILY 03/19/17 [History Confirmed 09/23/17] [place]-3 Fatty Acids [Fish Oil] 500 mg PO DAILY 03/19/17 [History Confirmed 09/23/17] Enoxaparin [Lovenox] 30 mg SC DAILY@0600 #19 syringe 03/28/17 [Rx Confirmed 09/23/17] Acetaminophen [Tylenol] 1,000 mg PO Q8H PRN PRN tab 04/03/17 [Rx Confirmed 09/23/17] Enoxaparin [Lovenox] 30 mg SC DAILY@0600 #12 syringe 04/03/17 [Rx Confirmed 09/23/17] Iron Polysaccharide Complex [Ferrex 150] 150 mg PO DAILYCM #30 cap 04/03/17 [Rx Confirmed 09/23/17] Polyethylene Glycol 3350 [Miralax] 17 gm PO DAILY #30 packet 04/03/17 [Rx Confirmed 09/23/17] PFSH Surgical History H/O total hip arthroplasty (Inactive) Social History Smoking Status: Never smoker HPI RIGHT HIP: Details: TYRON COON is a 82 year old M here today for f/u right ILIANA 03/26/17. He has no complaints of pain, normal gait and states he walked all winter while in [facility] with no problems. Denies numbness, tingling or other associated symptoms. ROS Const Reports system reviewed and no additional complaints, except as docu Eyes Reports system reviewed and no additional complaints, except as docu ENT Reports system reviewed and no additional complaints, except as docu Card Reports system reviewed and no additional complaints, except as docu Resp Reports system reviewed and no additional complaints, except as docu GI Reports system reviewed and no additional complaints, except as docu Musc Reports as per HPI, Reports system reviewed and no additional complaints, except as docu Skin/Breast Reports system reviewed and no additional complaints, except as docu Neuro Yes system reviewed and no additional complaints, except as docu Psych Reports system reviewed and no additional complaints, except as docu Endo Reports system reviewed and no additional complaints, except as docu Ortho Exam Right Hip Skin: Yes CDI Contralateral Normal: Yes Hip: absent eccymosis, absent soft tissue swelling, absent erythema, absent TTP Greater Troch flexion: 110 degrees extension: 20 degrees internal rotation @90 degree flexion: 40 degrees external rotation @90 degree extension: 60 degrees abduction: 50 degrees adduction: 30 degrees Impingement Test: 1 Galilea test: 2 Homans Sign: No HIP: Patient is otherwise distally neurovascularly intact in L1-S1 distributions. He has +1 pulses. He has lower extremity swelling which is consistent prior to operative intervention from his surgical intervention and within the groin. Otherwise incision clean dry and intact. He has negative Homans. Walks an antalgic gait. X-rays: Evaluated myself patient-hardware otherwise well-seated well-placed status post right total hip arthroplasty doing well. Left Hip Skin/Wound: Yes CDI Contralateral Normal: Yes flexion: 110 degrees extension: 20 degrees internal rotation @90 degree flexion: 40 degrees external rotation @90 degree extension: 60 degrees abduction: 50 degrees adduction: 30 degrees Assessment AND Plan Problems 1. Primary osteoarthritis of right hip M16.11 2. 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 Plan: At this point time the patient is doing well. I told the patient that I will be leaving the practice the end of January and so I can either see him prior to my leaving or have them ultimately follow up with [facility] if there is any issues with his hip. Patient can follow-up with Dr. yolis Abel here in my practice if desired but ultimately if there is an issue she would refer out. Patient aware. Patient agrees to plan and will follow-up with me really on a as needed basis. A major issues please contact. Orders Orders: Coding Level of Care Code Off vis,est,level 4 Diagnoses Primary osteoarthritis of right hip M16.11 Osteoarthritis type: primary Status post total replacement of right hip Z96.641 09/30/17 0801 <Electronically signed by Henrry Aniceto DO> Date Henrry Moreland DO Cosigner Signature: Date (if applicable) CC: HIP 2-3 VIEWS WITH Observed: 09/23/2017 Status: F Source: [place] PELVIS 10:23 AM [facility] REPOSITORY [facility] Imaging Services [address] [place] [address] Hip 2-3 Views with Pelvis MR#: [id number] Acct: [id number] Name: TYRON COON Rep #: [id number] : 1935 M 82 From: Amanda Ramirez MD PCP: Skip Ratliff MD Status: REG CLI Study: Hip 2-3 Views with Pelvis Date of Exam: 09/23/17 Exam# [id number] Ordering Dr: Henrry Moreland DO STUDY: X-RAY - PELVIS AND RIGHT HIP REASON FOR EXAM: Male, 82 years old. Postop one year TECHNIQUE: Radiological exam, hip, unilateral, with pelvis when performed; 2 or 3 views. COMPARISON: June 17, 2017 pelvis x-ray FINDINGS: There is a non-specific bowel gas pattern. There are atherosclerotic vascular calcifications of the pelvic arteries. There is narrowing with cortical sclerosis and osteophyte formation of the sacroiliac joint consistent with degenerative osteoarthritic changes. Normal bilateral superior and inferior pubic rami. Normal pubic symphysis. Normal bilateral ischial tuberosities. There is a right hip arthroplasty with visualized heterotopic bone or soft tissue calcification. There is no evidence of change in the alignment. The alignment is in neutral position. There is mild narrowing of the left hip joint space. There is minimal acetabular spurring. There is degenerative change in the lumbar spine. RAD/Hip 2-3 Views with Pelvis IMPRESSION: Stable right hip arthroplasty no evidence of an acute fracture or significant change since prior study. Electronically Signed: Amanda Ramirez MD at 17:34 EDT Tel , Service support , CC: Skip Ratliff MD; Henrry Moreland DO Inseam Trimming Machine Operator: Signed ALLERGIES ALLERGIES DATE TYPE / CODE NAME / CODE REACTION SEVERITY SOURCE 03/19/2018 Drug Penicillins/I48953 Rash Unknown [place] Allergy/416 0476(RXNORM) Community 414327([facility] ED CT) Repository 03/19/2018 Drug Sulfa (Sulfonamide Other Unknown [place] Allergy/416 Antibiotics)/F0010 Community 240950([facility] 65351[facility] ED CT) Repository 03/19/2018 Drug hydrochlorothiazid Rash Unknown [place] Allergy/416 e/N441800015(RXNOR Community 791362([facility] ED CT) Repository 03/19/2018 Drug clopidogrel/I45888 Rash/Itching Unknown [place] Allergy/416 7363(RXNORM) Community 133212([facility] ED CT) Repository 03/19/2017 Drug PENICILLINS RASH [facility] Class/54532 Other [place] 1003(SNOMED Repository CT) 03/01/2011 DRUG LISINOPRIL RASH [facility] INGREDI/419 Other [place] 472282(SNOM Repository ED CT) 10/17/2007 Drug SULFA (SULFONAMIDE RASH [facility] Class/09559 ANTIBIOTICS) Other [place] 1003(SNOMED Repository CT) 06/01/2005 DRUG AMOXICILLIN HIVES [facility] INGREDI/419 Other [place] 204375(SNOM Repository ED CT) 06/01/2005 DRUG CLOPIDOGREL [facility] INGREDI/419 BISULFATE Other [place] 490962(SNOM Repository ED CT) NG/54893823 AMOXICILLIN [facility] 6(SNOMED Health System CT) Repository NG/47726774 SULFA (SULFONAMIDE [facility] 6(SNOMED ANTIBIOTICS) Health System CT) Repository NG/02645329 LISINOPRIL [facility] 6(SNOMED Health System CT) Repository NG/15219890 PENICILLINS [facility] 6([employer] System CT) Repository NG/98759858 CLOPIDOGREL [facility] 6([employer] System CT) Repository ENCOUNTERS ENCOUNTERS ADMIT/DISCHARGE ACCOUNT NUMBER ADMITTING ENCOUNTER LOCATION SOURCE CLASS 07/08/2018 [id number] Ambulatory [facility] ding:LAB Repository 06/27/2018/06/27/20 [id number] Ambulatory [address] ding:LAB Repository 06/18/2018/06/18/20 [id number] Ambulatory [address] Other [place] Repository 06/18/2018/06/18/20 [id number] Ambulatory [address] MEDICAL Repository CENTERBuildi ng:AGVASACC 06/16/[id number] [facility] Repository 06/16/2018/06/16/20 [id number] Ambulatory [address] MEDICAL Repository CENTERBuildi ng:AKXRCT 06/06/2018/06/06/20 [id number] Ambulatory [address] ding:LAB Repository 05/22/2018/05/22/20 [id number] Ambulatory [address] Main [place] Repository 04/25/2018/04/25/20 [id number] Ambulatory [address] ding:LAB Repository 04/25/2018 [id number] Ambulatory [facility] [place] [facility] 04/10/2018 [id number] Ambulatory [facility] ding:PSN Repository 04/10/2018 [id number] Ambulatory BMSBuilding: [place] [facility] Repository 04/04/2018/04/04/20 [id number] Ambulatory [place] ding:LAB Repository 03/21/2018/03/21/20 [id number] Ambulatory BMSBuilding: [place] [facility] Repository 02/25/2018/02/27/20 [id number] Ambulatory [address] [place] Repository 02/18/2018/02/19/20 [id number] Ambulatory [address] ding:LAB Repository 01/31/2018/02/01/20 [id number] Ambulatory [address] ding:LAB Repository 01/17/2018 [id number] Ambulatory [facility] ding:LAB Repository 01/15/2018/01/16/20 [id number] Ambulatory [address] Other [place] Repository 01/15/2018/01/16/20 [id number] Ambulatory [address] MEDICAL Repository CENTERBuildi ng:AGVASACC 2018 [id number] Ambulatory BMS[facility]: [place] [facility] Repository 01/07/2018/01/08/20 [id number] Ambulatory [address] ding:CLSP Repository 2018 [id number] Ambulatory BMSBuilding: [facility] Repository 12/27/2017 [id number] Ambulatory [facility] ding:RAD Repository 12/27/2017/12/28/19 [id number] Ambulatory BMSBuilding: [place] [facility] Repository 12/24/2017/12/25/19 [id number] Ambulatory BMSBuilding: [place] [facility] Repository 12/24/2017 [id number] Ambulatory [facility] ding:CVS Repository 12/24/2017 [id number] Ambulatory BMSBuilding: [facility] Repository 12/06/2017 [id number] Ambulatory [facility] ding:CVS Repository 12/06/2017 [id number] Ambulatory BMSBuilding: [place] [facility] Repository 12/03/2017 [id number] Ambulatory [facility] ding:CT Repository 11/18/2017 [id number] Ambulatory [facility] ding:CVS Repository 11/18/2017 [id number] Ambulatory [facility] ding:CVS Repository 11/18/2017 [id number] Ambulatory BMSBuilding: [facility] Repository 11/18/2017 [id number] Ambulatory BMSBuilding: [place] [facility] Repository 11/07/2017 [id number] Ambulatory [place] [facility] ding:LABSPEC Repository 11/05/2017/11/06/19 [id number] Ambulatory BMSBuilding: [place] [facility] Repository 11/04/2017 [id number] Ambulatory BMSBuilding: [place] [facility] Repository 09/23/2017 [id number] Ambulatory [facility] ding:HPRAD Repository 09/23/2017/09/24/19 [id number] Ambulatory BMSBuilding: [place] 18 [facility] Repository PAYERS PAYERS ENCOUNTER GUARANTOR PAYER SUBSCRIBER SOURCE 07/08/2018 TYRON Crow Primary TYRON Crow [place] [id number] Insurance:MEDICARE PALMQUISTDOB: [facility] [id number] Number[place] Repository [address]Lrw: 330 [id number] [phone] () Date:2018-01-24 07/08/2018 Secondary TYRON L [place] Insurance:MEDICAL PALMQUISTDOB: [facility] [id number] Hospital Number: Repository [id number] Date:6024-30-45VZ[address] [address]MU: 07/08/2018 Tertiary NOT GIVENUNK [place] Insurance:SELF PAY [facility] Number: Effective Repository Date:2018-07-07 06/27/2018 TYRON L Primary TYRON L [place] [id number] Insurance:MEDICARE PALMQUISTDOB: [facility] [id number] Number: Repository [address]Bet: 330 [id number] [phone] () Date:2018-01-24 06/27/2018 Secondary TYRON L [place] Insurance:MEDICAL PALMQUISTDOB: [facility] [id number] Hospital Number: Repository [id number] Date:7820-62-29XV[address] [address]SZ: 06/27/2018 Tertiary NOT GIVENUNK [place] Insurance:SELF PAY [facility] Number: Effective Repository Date:2018-06-09 06/18/2018 TYRON L Primary TYRON L [facility] PALMQUISTDOB: Insurance:MEDICARE A PALMQUISTDOB: Health System AND BPolicy Number: [id number] Repository [place] [id number] [place], [place] Date: [address]Gsr: () 06/18/2018 Secondary TYRON L [facility] Insurance:MMO PALMQUISTDOB: [facility] [id number] Repository [facility] Number: [id number] Date: 06/16/2018 TYRON L Primary TYRON L [facility] PALMQUISTDOB: Insurance:MEDICARE A PALMQUISTDOB: [facility] Number: [id number] Repository [place] [id number] [place], [place] Date: [address]Jpu: () 06/16/2018 Secondary TYRON L [facility] Insurance:MMO PALMQUISTDOB: [facility] [id number] Repository [facility] Number: [id number] Date: 06/06/2018 TYRON L Primary TYRON L [place] [id number] Insurance:MEDICARE PALMQUISTDOB: [facility] A [facility] [id number] Number: Repository [address]Kvc: [phone] [id number] [phone] () Date:2018-01-24 06/06/2018 Secondary TYRON L [place] Insurance:MEDICAL PALMQUISTDOB: [facility] [id number] Hospital Number: Repository [id number] Date:0782-12-15JW[address] [address]UE: 06/06/2018 Tertiary NOT GIVENUNK [place] Insurance:SELF PAY [facility] Hospital Number: Effective Repository Date:2018-05-08 04/25/2018 TYRON L Primary TYRON L [place] [id number] Insurance:MEDICARE PALMQUISTDOB: [facility] [id number] Number: Repository [address]Xsb: 330 [id number] [phone] (HP) Date:2018-01-24 04/25/2018 Secondary TYRON L [place] Insurance:MEDICAL PALMQUISTDOB: [facility] [id number] Hospital Number: Repository [id number] Date:4897-31-47RZ [address] [address]LW: 04/25/2018 Tertiary NOT GIVENUNK [place] Insurance:SELF PAY [facility] Number: Effective Repository Date:2018-04-09 04/25/2018 TYRON L Primary TYRON L [place] [id number] Insurance:MEDICARE PALMQUISTDOB: [facility] [id number] Number: Repository [address]Usn: 330 [id number] [phone] (HP) Date:2017-12-24 04/25/2018 Secondary TYRON L [place] Insurance:MEDICAL PALMQUISTDOB: [facility] [id number] Hospital Number: Repository [id number] Date:3911-18-61FI[address] [address]NP: 04/25/2018 Tertiary NOT GIVENUNK [place] Insurance:SELF PAY [facility] Hospital Number: Effective Repository Date:2017-12-24 04/10/2018 TYRON L Primary TYRON L [place] [id number] Insurance:MEDICARE PALMQUISTDOB: [facility] [id number] Number: Repository [address]Iuz: 330 [id number] [phone] (HP) Date:2018-03-21 04/10/2018 Secondary TYRON L [place] Insurance:MEDICAL PALMQUISTDOB: [facility] [id number] Hospital Number: Repository [id number] Date:7337-38-62VC[address] [address]OO: 04/10/2018 Tertiary NOT GIVENUNK [place] Insurance:SELF PAY [facility] Number: Effective Repository Date:2018-03-21 04/10/2018 TYRON L Primary TYRON L [place] [id number] Insurance:MEDICARE PALMQUISTDOB: [facility] PART A [facility] [id number] Number: Repository [address]Ire: 330 [id number] [phone] () Date:2018-03-21 04/10/2018 Secondary TYRON L [place] Insurance:MEDICAL PALMQUISTDOB: [facility] [id number] Hospital Number: Repository [id number] Date:0923-55-10DY[address] [address]TA: 04/10/2018 Tertiary NOT GIVENUNK [place] Insurance:SELF PAY [facility] Hospital Number: Effective Repository Date:2018-04-10 04/04/2018 TYRON L Primary TYRON L [place] [id number] Insurance:MEDICARE PALMQUISTDOB: [facility] PART A [facility] [id number] Number: Repository [address]Kog: 330 [id number] [phone] () Date:2018-01-24 04/04/2018 Secondary TYRON L [place] Insurance:MEDICAL PALMQUISTDOB: [facility] [id number] Hospital Number: Repository [id number] Date:5935-45-80AA[address] [address]WL: 04/04/2018 Tertiary NOT GIVENUNK [place] Insurance:SELF PAY [facility] Hospital Number: Effective Repository Date:2018-03-11 03/21/2018 TYRON L Primary TYRON L [place] [id number] Insurance:MEDICARE PALMQUISTDOB: [facility] PART A [facility] [id number] Number: Repository [id number]: 330 [id number] [phone] (HP) Date:2017-11-05 03/21/2018 Secondary TYRON L [place] Insurance:MEDICAL PALMQUISTDOB: [facility] [id number] Hospital Number: Repository [id number] Date:8578-91-61RU [address] [place] [address]AI: 03/21/2018 Tertiary NOT GIVENUNK [place] Insurance:SELF PAY [facility] Number: Effective Repository Date:2018-03-21 02/18/2018 TYRON L Primary TYRON L [place] [id number] Insurance:MEDICARE PALMQUISTDOB: [facility] [id number] Number: Repository [address]Ojo: 330 [id number] [phone] (HP) Date:2018-01-24 02/18/2018 Secondary TYRON L [place] Insurance:MEDICAL PALMQUISTDOB: [facility] [id number] Hospital Number: Repository [id number] Date:5563-52-86UC [address] [place] [address]NX: 02/18/2018 Tertiary NOT GIVENUNK [place] Insurance:SELF PAY [facility] Number: Effective Repository Date:2018-02-06 01/31/2018 TYRON L Primary TYRON L [place] [id number] Insurance:MEDICARE PALMQUISTDOB: [facility] [id number] Number: Repository [address]Xtg: 330 [id number] [phone] (HP) Date:2018-01-24 01/31/2018 Secondary TYRON L [place] Insurance:MEDICAL PALMQUISTDOB: [facility] [id number] Hospital Number: Repository [id number] Date:5015-58-55EU[address] [address]YN: 01/31/2018 Tertiary NOT GIVENUNK [place] Insurance:SELF PAY [facility] Number: Effective Repository Date:2018-01-24 01/17/2018 TYRON L Primary TYRON L [place] [id number] Insurance:MEDICARE PALMQUISTDOB: [facility] [id number] Number: Repository [address]Nvo: 330 [id number] [phone] (HP) Date:2018-01-17 01/17/2018 Secondary TYRON L [place] Insurance:MEDICAL PALMQUISTDOB: [facility] [id number] Hospital Number: Repository [id number] Date:4024-94-12QB [address] [place] [address]RW: 01/17/2018 Tertiary NOT GIVENUNK [place] Insurance:SELF PAY [facility] Number: Effective Repository Date:2018-01-17 01/15/2018 TYRON L Primary TYRON L [facility] PALMQUISTDOB: Insurance:MEDICARE A PALMQUISTDOB: [facility] AND [facility] Number: [id number] North [id number] [place], [place] Date: [address]Hvu: () 01/15/2018 Secondary TYRON [facility] Insurance:MMO PALMQUISTDOB: [facility] [id number] [facility]ository [facility] Number: [id number] Date: 2018 TYRON L Primary YTRON L [place] [id number] Insurance:MEDICARE PALMQUISTDOB: [facility] [id number] Number: Repository [id number]: 330 [id number] [phone] (HP) Date:2018 2018 Secondary TYRON L [place] Insurance:MEDICAL PALMQUISTDOB: [facility] [id number] Hospital Number: Repository [id number] Date:0924-24-24RC [address] [place] [address]GW: 2018 Tertiary NOT GIVENUNK [place] Insurance:SELF PAY [facility] Hospital Number: Effective Repository Date:2018 2018 TYRON L Primary TYRON L [place] [id number] Insurance:MEDICARE PALMQUISTDOB: [facility] A [facility] [id number] Number[place] Repository [id number]: 330 [id number] [phone] () Date:2017-12-26 2018 Secondary TYRON L [place] Insurance:MEDICAL PALMQUISTDOB: [facility] [id number] Hospital Number: Repository [id number] Date:6823-06-28VS[address] [address]RR: 2018 Tertiary NOT GIVENUNK [place] Insurance:SELF PAY [facility] Hospital Number: Effective Repository Date:2017-12-26 2018 TYRON L Primary TYRON L [place] [id number] Insurance:MEDICARE PALMQUISTDOB: [facility] [id number] Number[place] Repository [id number]: 330 [id number] [phone] () Date:2017-12-26 2018 Secondary TYRON L [place] Insurance:MEDICAL PALMQUISTDOB: [facility] [id number] Hospital Number: Repository [id number] Date:7360-85-18WT[address] [address]HY: 2018 Tertiary NOT GIVENUNK [place] Insurance:SELF PAY [facility] Hospital Number: Effective Repository Date:2018 12/27/2017 TYRON L Primary TYRON L [place] [id number] Insurance:MEDICARE PALMQUISTDOB: [facility] A [facility] [id number] Number: Repository [address]Rgz: 330 [id number] [phone] () Date:2017-12-27 12/27/2017 Secondary TYRON L [place] Insurance:MEDICAL PALMQUISTDOB: [facility] [id number] Hospital Number: Repository [id number] Date:3255-00-61RA[address] [address]MZ: 12/27/2017 Tertiary NOT GIVENUNK [place] Insurance:SELF PAY [facility] Hospital Number: Effective Repository Date:2017-12-27 12/27/2017 TYRON L Primary TYRON L [place] [id number] Insurance:MEDICARE PALMQUISTDOB: [facility] A [facility] [id number] Number: Repository [id number]: 330 [id number] [phone] () Date:2017-12-26 12/27/2017 Secondary TYRON L [place] Insurance:MEDICAL PALMQUISTDOB: [facility] [id number] Hospital Number: Repository [id number] Date:3439-48-23JM[address] [address]JZ: 12/27/2017 Tertiary NOT GIVENUNK [place] Insurance:SELF PAY [facility] Hospital Number: Effective Repository Date:2017-12-27 12/24/2017 TYRON L Primary TYRON L [place] [id number] Insurance:MEDICARE PALMQUISTDOB: [facility] A [facility] [id number] Number[place] Repository [address]Aly: 330 [id number] [phone] () Date:2017-12-17 12/24/2017 Secondary TYRON L [place] Insurance:MEDICAL PALMQUISTDOB: [facility] [id number] Hospital Number: Repository [id number] Date:0491-68-22JO [address] [address]JL: 12/24/2017 Tertiary NOT GIVENUNK [place] Insurance:SELF PAY [facility] Hospital Number: Effective Repository Date:2017-12-24 12/24/2017 TYRON L Primary TYRON L [place] [id number] Insurance:MEDICARE PALMQUISTDOB: [facility] A [facility] [id number] Number[place] Repository [address]Juc: 330 [id number] [phone] () Date:2017-11-05 12/24/2017 Secondary TYRON L [place] Insurance:MEDICAL PALMQUISTDOB: [facility] [id number] Hospital Number: Repository [id number] Date:0584-28-70DN[address] [address]VW: 12/24/2017 Tertiary NOT GIVENUNK [place] Insurance:SELF PAY [facility] Number: Effective Repository Date:2017-12-18 12/24/2017 TYRON L Primary TYRON L [place] [id number] Insurance:MEDICARE PALMQUISTDOB: [facility] A [facility] [id number] Number[place] Repository [id number]: 330 [id number] [phone] () Date:2017-11-05 12/24/2017 Secondary TYRON L [place] Insurance:MEDICAL PALMQUISTDOB: [facility] [id number] Hospital Number: Repository [id number] Date:2652-65-43LZ[address] [address]WM: 12/24/2017 Tertiary NOT GIVENUNK [place] Insurance:SELF PAY [facility] Number: Effective Repository Date:2017-12-24 12/06/2017 TYRON L Primary TYRON L [place] [id number] Insurance:MEDICARE PALMQUISTDOB: [facility] [id number] Number[place] Repository [id number]: [id number] [phone] Date:2017-11-278 () 12/06/2017 Secondary TYRON L [place] Insurance:MEDICAL PALMQUISTDOB: [facility] [id number] Hospital Number: Repository [id number] Date:0671-37-53IT[address] [address]TG: 12/06/2017 Tertiary NOT GIVENUNK [place] Insurance:SELF PAY [facility] Number: Effective Repository Date:2017-11-27 12/06/2017 TYRON L Primary TYRON L [place] [id number] Insurance:MEDICARE PALMQUISTDOB: [facility] A [facility] [id number] Number[place] Repository [id number]: 330 [id number] [phone] () Date:2017-11-27 12/06/2017 Secondary TYRON L [place] Insurance:MEDICAL PALMQUISTDOB: [facility] [id number] Hospital Number: Repository [id number] Date:8544-12-00MP [address] [address]YW: 12/06/2017 Tertiary NOT GIVENUNK [place] Insurance:SELF PAY [facility] Number: Effective Repository Date:2017-12-06 12/03/2017 TYRON L Primary TYRON L [place] [id number] Insurance:MEDICARE PALMQUISTDOB: [facility] [id number] [place] Number[place] Repository [id number]: [id number] [phone] Date:2017-11-22 () 12/03/2017 Secondary TYRON L [place] Insurance:MEDICAL PALMQUISTDOB: [facility] [id number] Hospital Number: Repository [id number] Date:5642-91-69PZ [address] [address]AH: 12/03/2017 Tertiary NOT GIVENUNK [place] Insurance:SELF PAY [facility] Number: Effective Repository Date:2017-11-22 11/18/2017 TYRON L Primary TYRON L [place] [id number] Insurance:MEDICARE PALMQUISTDOB: [facility] [id number] Number[place] Repository [address]Vlr: [id number] [phone] Date:2017-11-05 () 11/18/2017 Secondary TYRON L [place] Insurance:MEDICAL PALMQUISTDOB: [facility] [id number] Hospital Number: Repository [id number] Date:8473-87-26AC [address] [address]IH: 11/18/2017 Tertiary NOT GIVENUNK [place] Insurance:SELF PAY [facility] Hospital Number: Effective Repository Date:2017-11-05 11/18/2017 TYRON L Primary TYRON L [place] [id number] Insurance:MEDICARE PALMQUISTDOB: [facility] PART A [facility] [id number] [place]: Repository [id number]: [id number] [phone] Date:2017-11-05 () 11/18/2017 Secondary TYRON L [place] Insurance:MEDICAL PALMQUISTDOB: [facility] [id number] Hospital Number: Repository [id number] Date:[id number] [address] [address]RS: 11/18/2017 Tertiary NOT GIVENUNK [place] Insurance:SELF PAY [facility] Hospital Number: Effective Repository Date:2017-11-05 11/18/2017 TYRON L Primary TYRON L [place] [id number] Insurance:MEDICARE PALMQUISTDOB: [facility] [id number] [place] Number[place] Repository [id number]: [id number] [phone] Date:2017-11-05 () 11/18/2017 Secondary TYRON L [place] Insurance:MEDICAL PALMQUISTDOB: [facility] [id number] Hospital Number: Repository [id number] Date:[id number] [address]IV: 11/18/2017 Tertiary NOT GIVENUNK [place] Insurance:SELF PAY [facility] Hospital Number: Effective Repository Date:2017-11-18 11/18/2017 TYRON L Primary TYRON L [place] [id number] Insurance:MEDICARE PALMQUISTDOB: [facility] [id number] [place] Number[place]ository [id number]: [phone] [id number] [phone] Date:2017-11-05 11/18/2017 Secondary TYRON L [place] Insurance:MEDICAL PALMQUISTDOB: [facility] [id number] Hospital Number: Repository [id number] Date:0488-71-36PM [address] [address]AW: 11/18/2017 Tertiary NOT GIVENUNK [place] Insurance:SELF PAY [facility] Number: Effective Repository Date:2017-11-18 11/07/2017 TYRON L Primary TYRON L [place] [id number] Insurance:MEDICARE PALMQUISTDOB: [facility] [id number] [place] Number: Repository [id number]: [id number] [phone] Date:2017-11-07 () 11/07/2017 Secondary TYRON L [place] Insurance:MEDICAL PALMQUISTDOB: [facility] [id number] Hospital Number: Repository [id number] Date:1054-36-41QH[address] [address]FG: 11/07/2017 Tertiary NOT GIVENUNK [place] Insurance:SELF PAY [facility] Number: Effective Repository Date:2017-11-07 11/05/2017 TYRON L Primary TYRON L [place] [id number] Insurance:MEDICARE PALMQUISTDOB: [facility] [id number] Number[place] [id number]: [id number] [phone] Date:2017-10-29 () 11/05/2017 Secondary TYRON L [place] Insurance:MEDICAL PALMQUISTDOB: [facility] [id number] Hospital Number: Repository [id number] Date:9137-40-81[address] [address]EM: 11/05/2017 Tertiary NOT GIVENUNK [place] Insurance:SELF PAY [facility] Number: Effective Repository Date:2017-11-05 11/04/2017 TYRON L Primary TYRON L [place] [id number] Insurance:MEDICAL PALMQUISTDOB: [facility] [id number] [place] Number[place] Repository [id number]: [id number] [phone] Date:6494-59-13IM [address] [address]NC: 11/04/2017 Secondary TYRON L [place] Insurance:MEDICARE PALMQUISTDOB: [facility] PART [facility] [id number] Hospital Number: Repository [id number] Date:2017-11-04 11/04/2017 Tertiary NOT GIVENUNK [place] Insurance:SELF PAY [facility] Number: Effective Repository Date:2017-11-04 09/23/2017 TYRON L Primary TYRON L [place] [id number] Insurance:MEDICARE PALMQUISTDOB: [facility] [id number] [place] Number: Repository [id number]: [phone] [id number] [phone] (HP) Date:2017-09-23 09/23/2017 Secondary TYRON L [place] Insurance:MEDICAL PALMQUISTDOB: [facility] [id number] Hospital Number: Repository [id number] Date:0700-20-24JU [address] [place] [address]KI: 09/23/2017 Tertiary NOT GIVENUNK [place] Insurance:SELF PAY [facility] Number: Effective Repository Date:2017-09-23 09/23/2017 TYRON L Primary TYRON L [place] [id number] Insurance:MEDICARE PALMQUISTDOB: [facility] [id number] [place] Number[place]ository [id number]: [id number] [phone] Date:2017-06-17 () 09/23/2017 Secondary TYRON [place] Insurance[facility] [id number] Hospital Number: Repository [id number] Date:9670-98-74TF [address] [place] [address]LZ: 09/23/2017 Tertiary NOT [place] Insurance:SELF PAY [facility] Number: Effective Repository Date:2017-06-17
== END 2018-06-27 16:09 | disposition home or self-care (01) ==
LOC: LAB 09:59
PROVIDERS: Family Provider Internal Medicine; PCP Internal Medicine; Referring Provider Internal Medicine Cardiovascular Disease; Visit Provider Internal Medicine Cardiovascular Disease
DX: I48.0 Paroxysmal atrial fibrillation (principal); Z79.01 Long term (current) use of anticoagulants
CPT/HCPCS: 36415; 85610

== ENCOUNTER 2018-09-22 11:10 | Outpatient (RCR) | payer MEDICARE, OTHER, SELFPAY ==
[2018-03-21 10:56] VITALS: BMI 28.9
[2018-09-22 12:42] LABS: Prothrombin Time (Protime)PT. 22.2 SECONDS (11.7-14.9)
== END 2018-09-22 12:10 | disposition home or self-care (01) ==
LOC: LAB 11:10
PROVIDERS: Family Provider Internal Medicine; PCP Internal Medicine; Referring Provider Internal Medicine Cardiovascular Disease; Visit Provider Internal Medicine Cardiovascular Disease
DX: I48.0 Paroxysmal atrial fibrillation (principal); Z79.01 Long term (current) use of anticoagulants
CPT/HCPCS: 36415; 85610

== ENCOUNTER 2018-10-03 14:00 | Outpatient (RCR) | payer MEDICARE, OTHER, SELFPAY ==
[2018-09-29 11:36] VITALS: BMI 29.9
[2018-10-01 10:30] VITALS: BP 150/88; PULSE 74; RESP 16; TEMP 37; BMI 29.2
[2018-10-01 11:35] VITALS: BMI 29.2
--- NOTE | 2018-10-01 12:36 | PCM.WC.HP ---
(1) Lymphedema of right lower extremity Status: Chronic Current Visit: Yes Code(s): I89.0 - Lymphedema, not elsewhere classified (2) Cellulitis of right lower extremity Status: Acute Current Visit: Yes Code(s): L03.115 - Cellulitis of right lower limb History of Present Illness Chief Complaint: Worsening right lower extremity swelling, pain and redness. History of Wound: Mr. Garvin is an 83-year-old who was referred to the wound center by his primary care office due to worsening right lower extremity swelling, drainage and concern for infection. Chronic history of lymphedema status post radiation for testicular cancer. He has consistently used his compression stockings however 2 weeks ago, noted worsening swelling, redness, drainage and pain of his right lower extremity. He was seen by his primary nurse practitioner and who started him on clindamycin and referred him here. He denies chills, fever or otherwise feeling of unwell. They have been applying bacitracin at home and wrapping with Magdiel. Past Medical History Past Medical History: Chronic Problems (Last Reviewed 03/21/18 @ 10:56 by Danuta Peña) Lymphedema of right lower extremity (Chronic) Chronic anemia (Chronic) Palpitation (Chronic) Hypertension (Chronic) Surgical History: no surgical history Allergies/Adverse Reactions: Allergies Penicillins [PCN] Allergy (Verified 09/29/18 11:40) Rash Sulfa (Sulfonamide Antibiotics) Allergy (Verified 09/29/18 11:40) Other SHAKING clopidogrel [From Plavix] Adverse Reaction (Verified 09/29/18 11:40) rash/itching hydrochlorothiazide Adverse Reaction (Verified 09/29/18 11:40) rash Home Medications: Ambulatory Orders Medication Instructions Recorded aspirin 81 mg tablet,delayed 81 mg PO QDAY 11/04/17 release isosorbide mononitrate ER 30 mg 30 mg PO QAM #90 tab 06/06/18 tablet,extended release 24 hr metoprolol succinate ER 25 mg 25 mg PO QDAY #90 tab 06/06/18 tablet,extended release 24 hr Bacitracin 28 gm TP DAILY 10/01/18 Clindamycin [Cleocin] 300 mg PO 4X/DAY 10/01/18 Warfarin Sodium [Coumadin] 5 mg PO DAILY 10/01/18 - Family History Maternal Family History: Family History (Last Reviewed 09/29/18 @ 11:42 by Jodee Gomez) Mother Cancer Brother Diabetes Heart disease No pertinent history Paternal Family History: Family History (Last Reviewed 09/29/18 @ 11:42 by Jodee Gomez) Mother Cancer Brother Diabetes Heart disease No pertinent history Smoking Status: Never smoker Review of Systems Constitutional: Denies: Anorexia, Chills, Fever Eyes: Denies: Pain Cardiovascular: Denies: Chest Pain, Chest Tightness Respiratory: Denies: Hemoptysis Gastrointestinal: Denies: Abdominal Pain, Hematemesis, Vomiting Skin: Denies: Jaundice - Physical Exam Vital Signs Temp Pulse Resp BP 98.6 F 74 16 150/88 H 10/01/18 10:30 10/01/18 10:30 10/01/18 10:30 10/01/18 10:30 Wound Measurements and Assessment WC - Nurse 1 - General Ulcer Measurement Start: 10/01/18 10:27 Freq: Status: Active Protocol: Activity Type Activity Date Activity User E-Sign Co-Sign Detail Recorded Client Recorded Date Recorded By Document 10/01/18 10:30 [facility] [id number] 10/01/18 10:44 [facility] 10/01/18 10:30 Wound Center Nurse 1 [Edema Assessment] -Lower Limb Edema Present Yes -Right Calf (cm) 49 -Right Ankle (cm) 29.8 -Left Calf (cm) 36.6 -Left Ankle (cm) 23.2 Debridement Note No debridement was completed today Assessment/Plan Active Problems (Last Reviewed 03/21/18 @ 10:56 by Danuta Peña) Lymphedema of right lower extremity (Chronic) Cellulitis of right lower extremity (Acute) Assessment: Same as above. Plan: No debridement completed today. No significant ulceration. Seepage/drainage. Currently on clindamycin started by his nurse practitioner. Okay to continue/complete. Erythema and differential warmth of his right lower extremity. Xeroform over area. ABD to help with drainage. 3M wraps to right lower extremity. Change every third day. Scheduled for Doppler of his right lower extremity tomorrow, he was advised to come in for nurse visit after his Doppler for his 3M wrap. Continue Magdiel wrap for now. Advised to elevate lower extremities when seated in bed. He was also advised to call with any questions or concerns. Follow-up in 1 week. This note was generated with [employer] software. It may contain incorrect words, spelling, and punctuation that were not noted in checking the note before signing.
--- NOTE | 2018-10-01 12:41 | HP.PCM_ITS ---
(1) Lymphedema of right lower extremity Status: Chronic Current Visit: Yes Code(s): I89.0 - Lymphedema, not elsewhere classified (2) Cellulitis of right lower extremity Status: Acute Current Visit: Yes Code(s): L03.115 - Cellulitis of right lower limb History of Present Illness Chief Complaint: Worsening right lower extremity swelling, pain and redness. History of Wound: Mr. Garvin is an 83-year-old who was referred to the wound center by his primary care office due to worsening right lower extremity swelling, drainage and concern for infection. Chronic history of lymphedema status post radiation for testicular cancer. He has consistently used his compression stockings however 2 weeks ago, noted worsening swelling, redness, drainage and pain of his right lower extremity. He was seen by his primary nurse practitioner and who started him on clindamycin and referred him here. He denies chills, fever or otherwise feeling of unwell. They have been applying bacitracin at home and wrapping with Magdiel. Past Medical History Past Medical History: Chronic Problems (Last Reviewed 03/21/18 @ 10:56 by Danuta Peña) Lymphedema of right lower extremity (Chronic) Chronic anemia (Chronic) Palpitation (Chronic) Hypertension (Chronic) Surgical History: no surgical history Allergies/Adverse Reactions: Allergies Penicillins [PCN] Allergy (Verified 09/29/18 11:40) Rash Sulfa (Sulfonamide Antibiotics) Allergy (Verified 09/29/18 11:40) Other SHAKING clopidogrel [From Plavix] Adverse Reaction (Verified 09/29/18 11:40) rash/itching hydrochlorothiazide Adverse Reaction (Verified 09/29/18 11:40) rash Home Medications: Ambulatory Orders Medication Instructions Recorded aspirin 81 mg tablet,delayed 81 mg PO QDAY 11/04/17 release isosorbide mononitrate ER 30 mg 30 mg PO QAM #90 tab 06/06/18 tablet,extended release 24 hr metoprolol succinate ER 25 mg 25 mg PO QDAY #90 tab 06/06/18 tablet,extended release 24 hr Bacitracin 28 gm TP DAILY 10/01/18 Clindamycin [Cleocin] 300 mg PO 4X/DAY 10/01/18 Warfarin Sodium [Coumadin] 5 mg PO DAILY 10/01/18 - Family History Maternal Family History: Family History (Last Reviewed 09/29/18 @ 11:42 by Jodee Gomez) Mother Cancer Brother Diabetes Heart disease No pertinent history Paternal Family History: Family History (Last Reviewed 09/29/18 @ 11:42 by Jodee Gomez) Mother Cancer Brother Diabetes Heart disease No pertinent history Smoking Status: Never smoker Review of Systems Constitutional: Denies: Anorexia, Chills, Fever Eyes: Denies: Pain Cardiovascular: Denies: Chest Pain, Chest Tightness Respiratory: Denies: Hemoptysis Gastrointestinal: Denies: Abdominal Pain, Hematemesis, Vomiting Skin: Denies: Jaundice - Physical Exam Vital Signs Temp Pulse Resp BP 98.6 F 74 16 150/88 H 10/01/18 10:30 10/01/18 10:30 10/01/18 10:30 10/01/18 10:30 Wound Measurements and Assessment WC - Nurse 1 - General Ulcer Measurement Start: 10/01/18 10:27 Freq: Status: Active Protocol: Activity Type Activity Date Activity User E-Sign Co-Sign Detail Recorded Client Recorded Date Recorded By Document 10/01/18 10:30 [facility] [id number] 10/01/18 10:44 [facility] 10/01/18 10:30 Wound Center Nurse 1 [Edema Assessment] -Lower Limb Edema Present Yes -Right Calf (cm) 49 -Right Ankle (cm) 29.8 -Left Calf (cm) 36.6 -Left Ankle (cm) 23.2 Debridement Note No debridement was completed today Assessment/Plan Active Problems (Last Reviewed 03/21/18 @ 10:56 by Danuta Peña) Lymphedema of right lower extremity (Chronic) Cellulitis of right lower extremity (Acute) Assessment: Same as above. Plan: No debridement completed today. No significant ulceration. Seepage/drainage. Currently on clindamycin started by his nurse practitioner. Okay to continue/complete. Erythema and differential warmth of his right lower extremity. Xeroform over area. ABD to help with drainage. 3M wraps to right lower extremity. Change every third day. Scheduled for Doppler of his right lower extremity tomorrow, he was advised to come in for nurse visit after his Doppler for his 3M wrap. Continue Magdiel wrap for now. Advised to elevate lower extremities when seated in bed. He was also advised to call with any questions or concerns. Follow-up in 1 week. This note was generated with [employer] software. It may contain incorrect words, spelling, and punctuation that were not noted in checking the note before signing.
--- NOTE | 2018-10-02 15:58 | WC ---
TC FROM [facility]ANDLER @ [facility] W/ VERBAL RESULTS OF RLE VENOUS DOPPLER. NEGATIVE FOR CLOT. SHE WILL FAX OVER A REPORT TOMORROW AM. WILL UPDATE MARIA ELENA LOBATO.
[2018-10-03 13:52] VITALS: BP 148/85; PULSE 63; RESP 16; TEMP 36; BMI 29.2
== END 2018-10-05 23:59 ==
LOC: WC 14:00
PROVIDERS: Family Provider Internal Medicine; PCP Internal Medicine; Visit Provider Internal Medicine
DX: I89.0 Lymphedema, not elsewhere classified (principal); L03.115 Cellulitis of right lower limb; M79.89 Other specified soft tissue disorders; Z92.3 Personal history of irradiation; Z85.47 Personal history of malignant neoplasm of testis; I10 Essential (primary) hypertension
CPT/HCPCS: 29581; 99212; 99213; G0463

== ENCOUNTER 2018-10-14 14:01 | Outpatient (RCR) | payer MEDICARE, OTHER, SELFPAY ==
[2018-10-08 10:28] VITALS: BMI 29.2
--- NOTE | 2018-10-20 11:31 | HP.OTEVAL_ITS ---
Patient's Visit Information TYRON COON is a 83 year old M, referred to Occupational Therapy by Mikael Keith MD, with a diagnosis of right LE lymphedema. Date of Evaluation: 10/14/18 Occupational Therapist: Christiana Flores, BRIANA/Mignon, CHT - Subjective Subjective: This 83 year old male was seen for initial OT eval. pt arrives today states in 1962 was dx with testicular cancer underewnt 8 weeks of radiation therapy. states he has had difficuty with circulation and swelling since. 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 States he has 4 different pairs. Pt states about a year ago he was dx with an aortic aneurism and states his activity level has decreased since then. pt feels the last year he has had difficulty with edema in his LE. - Lymphedema (Circumferential Measure) Ankle: right 29cm left 29 cm Lower calf: right 32cm left 28cm Largest calf: right 44cm left 41cm Below knee: right 48cm left 39cm Above knee: right 57cm left 47cm Lower Exremity Comments: mesurments taken over 3m wrap as therapist did not have wraps to replace 3m wrap- - Lower Limb Functional Index Lower Extremity Functional Score: 54 - Goals Demonstrate a 20% reduction in edema by d/c: Yes Demonstrate adequate knowledge of self-massage by 2nd week: Yes Demonstrate adequate knowledge skin care/prec by 2nd week: Yes Demonstrate adequate knowledge therapeutic exercises by d/c: Yes Select approp compression garment w/donning/care/wear by d/c: Yes Voice need to replace compression garment every 4-6mo by dc: Yes - Rehabilitation General Assessment: Pt demo with stage II lymphedema of right LE. Pt is aware of compression garment use and will reuse after 3m wraps are removed tomorrow. Therapist advised pt to go to apt with compression socks. pt demo understanding- pt demo need for further skilled OT services 1x week for 2 weeks to ensure pt has understanding of lymphedema ex, self manual lymph massage as well as skin care. Today pt ed. on lymph stim ex, self manual lymph drainage massage, skin care and use of compression socks. pt given handouts and demo understanding of POC. Pt did say he was also going to see another therapist and not sure if he would return for further apts. if pt does not call to schedule apt in 2 weeks pt will be D/C at this time. Rehabilitation Potential: Good - Anticipated Interventions Anticipated Interventions: Education re assistive Equipment, Education re Diagnosis, Manual Lymph Drainage, Education re Life-long lymphedema Management, Education re Skin Care and Precautions, Education re Self Massage Techniques, Education re Correct Donning Tech,Care&Wearing Sched Comp Garments, Home Program - Visit Plan Frequency: 1x/Week Duration: 3 Months TEXT: Thank you for the opportunity to evaluate your patient. For Medicare and Medicare HMO plans, please review the plan of care and approve it. It will need to be FAXED BACK to us at [phone] for Medicare purposes. Please let me know if there are questions or concerns regarding this plan of care. Physician Signature:____ Date:
--- NOTE | 2019-01-21 15:42 | HP.OT.NRP ---
HP - Discharge Summary - Patient Information TYRON COON was seen in my office for initial evaluation on 10/14/18. The following Plan of Care was established for this patient: Initial Frequency: 1x/Week Initial Duration: 3 Months - Anticipated Interventions Anticipated Interventions: Education re assistive Equipment, Education re Diagnosis, Manual Lymph Drainage, Education re Life-long lymphedema Management, Education re Skin Care and Precautions, Education re Self Massage Techniques, Education re Correct Donning Tech,Care&Wearing Sched Comp Garments, Home Program This patient was last seen in our office 10/14/18. Pertinent comments regarding their Occupational therapy will appear below: Pt seen for initial OT eval for LE lymphedema. pt has not scheduled a follow up visit and due to time lapse in therapy services pt d/c at this time. At this point I will be discontinuing this patient from occupational therapy. I would be happy to see this patient again in the future if found appropriate by the physician. Thank you! Christiana Flores, OTR/L, CHT
== END 2018-10-14 19:00 | disposition home or self-care (01) ==
LOC: OT 14:01
PROVIDERS: Family Provider Internal Medicine; PCP Internal Medicine; Referring Provider Internal Medicine; Visit Provider Internal Medicine
DX: I89.0 Lymphedema, not elsewhere classified (principal)
CPT/HCPCS: 97166

== ENCOUNTER 2018-10-15 11:00 | Outpatient (RCR) | payer MEDICARE, OTHER, SELFPAY ==
[2018-10-06 01:44] VITALS: BP 148/85; PULSE 63; RESP 16; TEMP 36
[2018-10-06 11:17] VITALS: BP 149/76; PULSE 55; RESP 18; TEMP 36.2; BMI 29.2
[2018-10-08 10:28] VITALS: BP 138/71; PULSE 53; RESP 16; TEMP 36; BMI 29.2
--- NOTE | 2018-10-08 12:39 | PN.PCM_ITS ---
(1) Cellulitis of right lower extremity Status: Acute Current Visit: No Code(s): L03.115 - Cellulitis of right lower limb (2) Lymphedema of right lower extremity Status: Chronic Current Visit: Yes Code(s): I89.0 - Lymphedema, not elsewhere classified Type of Wound Chief Complaint: Worsening right lower extremity swelling, pain and redness. History of Wound: Mr. Garvin is an 83-year-old who was referred to the wound center by his primary care office due to worsening right lower extremity swelling, drainage and concern for infection. Chronic history of lymphedema status post radiation for testicular cancer. He has consistently used his compression stockings however 2 weeks ago, noted worsening swelling, redness, drainage and pain of his right lower extremity. He was seen by his primary nurse practitioner and who started him on clindamycin and referred him here. He denies chills, fever or otherwise feeling of unwell. They have been applying bacitracin at home and wrapping with Magdiel. Progress of Wound: No new concerns at this time. Has done really well with the 3M wraps. Cellulitis appears to have improved. Blistering is also improved. - Physical Exam Vital Signs Temp Pulse Resp BP 96.8 F L 53 L 16 138/71 H 10/08/18 10:28 10/08/18 10:28 10/08/18 10:28 10/08/18 10:28 General: Alert, Oriented x3, Cooperative, No apparent distress HEENT: Atraumatic, Normocephalic Oral: Moist Mucosa Neck: Supple Lungs: Normal air movement Abdomen: Non Tender Extremities: No cyanosis, Edema Wound Measurements and Assessment WC - Nurse 1 - General Ulcer Measurement Start: 10/06/18 11:17 Freq: Status: Active Protocol: Activity Type Activity Date Activity User E-Sign Co-Sign Detail Recorded Client Recorded Date Recorded By Document 10/06/18 11:17 AN [id number] 10/06/18 11:33 AN Document 10/08/18 10:28 [facility] [id number] 10/08/18 10:34 [facility] 10/06/18 10/08/18 11:17 10:28 Wound Center Nurse 1 [Edema Assessment] -Lower Limb Edema Present Yes -Right Calf (cm) 43.2 43.7 -Right Ankle (cm) 28.7 28.1 WC - Nurse 2 - General Ulcer CM Notes Start: 10/06/18 11:17 Freq: Status: Active Protocol: Activity Type Activity Date Activity User E-Sign Co-Sign Detail Recorded Client Recorded Date Recorded By Document 10/08/18 10:44 MW [id number] 10/08/18 10:47 MW 10/08/18 10:44 Pain Scale: 0-10 Numeric [Pain] -Is Patient Pain Free? Yes Musculoskeletal: No Muscle Wasting Neurological: Cranial nerves II-XII grossly intact Psych/Mental Status: Normal Affect Debridement Note Post-Debridement Measurements/Treatment WC - Nurse 2 - General Ulcer CM Notes Start: 10/06/18 11:17 Freq: Status: Active Protocol: Activity Type Activity Date Activity User E-Sign Co-Sign Detail Recorded Client Recorded Date Recorded By Document 10/08/18 10:44 MW [id number] 10/08/18 10:47 MW 10/08/18 10:44 Pain Scale: 0-10 Numeric Is Patient Pain Free? Yes No debridement was completed today Assessment/Plan Active Problems (Last Reviewed 03/21/18 @ 10:56 by Danuta Peña) Lymphedema of right lower extremity (Chronic) Assessment: Same as above. Plan: No debridement completed today. Cellulitis/drainage/erythema is also sign ificantly improved. No differential warmth. Continue Xeroform. 3M wraps to right lower extremity leave on for a week. Advised to elevate lower extremities when seated in bed. Referred to the lymphedema clinic. He was also advised to call with any questions or concerns. Follow-up in 1 week. This note was generated with [employer] dictation software. It may contain incorrect words, spelling, and punctuation that were not noted in checking the note before signing.
[2018-10-15 10:30] VITALS: BP 122/79; PULSE 56; RESP 16; TEMP 36.2; BMI 29.2
--- NOTE | 2018-10-15 10:54 | PCM.WC.PN ---
(1) Cellulitis of right lower extremity Status: Acute Current Visit: No Code(s): L03.115 - Cellulitis of right lower limb (2) Lymphedema of right lower extremity Status: Chronic Current Visit: Yes Code(s): I89.0 - Lymphedema, not elsewhere classified Type of Wound Chief Complaint: Worsening right lower extremity swelling, pain and redness. History of Wound: Mr. Garvin is an 83-year-old who was referred to the wound center by his primary care office due to worsening right lower extremity swelling, drainage and concern for infection. Chronic history of lymphedema status post radiation for testicular cancer. He has consistently used his compression stockings however 2 weeks ago, noted worsening swelling, redness, drainage and pain of his right lower extremity. He was seen by his primary nurse practitioner and who started him on clindamycin and referred him here. He denies chills, fever or otherwise feeling of unwell. They have been applying bacitracin at home and wrapping with Magdiel. Progress of Wound: Cellulitis totally resolved and no blistering appreciated today. - Physical Exam Vital Signs Temp Pulse Resp BP 97.1 F L 56 L 16 122/79 H 10/15/18 10:30 10/15/18 10:30 10/15/18 10:30 10/15/18 10:30 General: Alert, Oriented x3, Cooperative, No apparent distress HEENT: Atraumatic, Normocephalic Oral: Moist Mucosa Neck: Supple Lungs: Normal air movement Abdomen: Non Tender Extremities: No cyanosis, Edema Wound Measurements and Assessment WC - Nurse 1 - General Ulcer Measurement Start: 10/06/18 11:17 Freq: Status: Active Protocol: Activity Type Activity Date Activity User E-Sign Co-Sign Detail Recorded Client Recorded Date Recorded By Document 10/15/18 10:30 BM [id number] 10/15/18 10:39 BM[facility] 10/15/18 10:30 Wound Center Nurse 1 [Edema Assessment] -Lower Limb Edema Present Yes -Right Calf (cm) 42.1 -Right Ankle (cm) 27.1 WC - Nurse 2 - General Ulcer CM Notes Start: 10/06/18 11:17 Freq: Status: Active Protocol: Activity Type Activity Date Activity User E-Sign Co-Sign Detail Recorded Client Recorded Date Recorded By Document 10/15/18 10:47 [id number] 10/15/18 10:49 MW 10/15/18 10:47 Pain Scale: 0-10 Numeric [Pain] -Is Patient Pain Free? Yes Musculoskeletal: No Muscle Wasting Neurological: Cranial nerves II-XII grossly intact Psych/Mental Status: Normal Affect Debridement Note Post-Debridement Measurements/Treatment WC - Nurse 2 - General Ulcer CM Notes Start: 10/06/18 11:17 Freq: Status: Active Protocol: Activity Type Activity Date Activity User E-Sign Co-Sign Detail Recorded Client Recorded Date Recorded By Document 10/08/18 10:44 MW [id number] 10/08/18 10:47 MW Document 10/15/18 10:47 MW [id number] 10/15/18 10:49 MW 10/08/18 10/15/18 10:44 10:47 Pain Scale: 0-10 Numeric Is Patient Pain Free? Yes Yes No debridement was completed today Assessment/Plan Active Problems (Last Reviewed 03/21/18 @ 10:56 by Danuta Peña) Lymphedema of right lower extremity (Chronic) Assessment: Same as above. Plan: No debridement completed today. Cellulitis/ erythema resolved. No blistering appreciated. Had an initial visit with the [facility] Lymphedema clinic and will continue care there per preference. Advised to elevate lower extremities when seated and in bed. He was also advised to call with any questions or concerns. Discharged from the wound clinic. This note was generated with [employer] software. It may contain incorrect words, spelling, and punctuation that were not noted in checking the note before signing.
--- NOTE | 2018-10-15 10:58 | PN.PCM_ITS ---
(1) Cellulitis of right lower extremity Status: Acute Current Visit: No Code(s): L03.115 - Cellulitis of right lower limb (2) Lymphedema of right lower extremity Status: Chronic Current Visit: Yes Code(s): I89.0 - Lymphedema, not elsewhere classified Type of Wound Chief Complaint: Worsening right lower extremity swelling, pain and redness. History of Wound: Mr. Garvin is an 83-year-old who was referred to the wound center by his primary care office due to worsening right lower extremity swelling, drainage and concern for infection. Chronic history of lymphedema status post radiation for testicular cancer. He has consistently used his compression stockings however 2 weeks ago, noted worsening swelling, redness, drainage and pain of his right lower extremity. He was seen by his primary nurse practitioner and who started him on clindamycin and referred him here. He denies chills, fever or otherwise feeling of unwell. They have been applying bacitracin at home and wrapping with Magdiel. Progress of Wound: Cellulitis totally resolved and no blistering appreciated today. - Physical Exam Vital Signs Temp Pulse Resp BP 97.1 F L 56 L 16 122/79 H 10/15/18 10:30 10/15/18 10:30 10/15/18 10:30 10/15/18 10:30 General: Alert, Oriented x3, Cooperative, No apparent distress HEENT: Atraumatic, Normocephalic Oral: Moist Mucosa Neck: Supple Lungs: Normal air movement Abdomen: Non Tender Extremities: No cyanosis, Edema Wound Measurements and Assessment WC - Nurse 1 - General Ulcer Measurement Start: 10/06/18 11:17 Freq: Status: Active Protocol: Activity Type Activity Date Activity User E-Sign Co-Sign Detail Recorded Client Recorded Date Recorded By Document 10/15/18 10:30 BM [id number] 10/15/18 10:39 BMF 10/15/18 10:30 Wound Center Nurse 1 [Edema Assessment] -Lower Limb Edema Present Yes -Right Calf (cm) 42.1 -Right Ankle (cm) 27.1 WC - Nurse 2 - General Ulcer CM Notes Start: 10/06/18 11:17 Freq: Status: Active Protocol: Activity Type Activity Date Activity User E-Sign Co-Sign Detail Recorded Client Recorded Date Recorded By Document 10/15/18 10:47 [id number] 10/15/18 10:49 MW 10/15/18 10:47 Pain Scale: 0-10 Numeric [Pain] -Is Patient Pain Free? Yes Musculoskeletal: No Muscle Wasting Neurological: Cranial nerves II-XII grossly intact Psych/Mental Status: Normal Affect Debridement Note Post-Debridement Measurements/Treatment WC - Nurse 2 - General Ulcer CM Notes Start: 10/06/18 11:17 Freq: Status: Active Protocol: Activity Type Activity Date Activity User E-Sign Co-Sign Detail Recorded Client Recorded Date Recorded By Document 10/08/18 10:44 MW [id number] 10/08/18 10:47 MW Document 10/15/18 10:47 MW [id number] 10/15/18 10:49 MW 10/08/18 10/15/18 10:44 10:47 Pain Scale: 0-10 Numeric Is Patient Pain Free? Yes Yes No debridement was completed today Assessment/Plan Active Problems (Last Reviewed 03/21/18 @ 10:56 by Danuta Peña) Lymphedema of right lower extremity (Chronic) Assessment: Same as above. Plan: No debridement completed today. Cellulitis/ erythema resolved. No blistering appreciated. Had an initial visit with the [facility] Lymphedema clinic and will continue care there per preference. Advised to elevate lower extremities when seated and in bed. He was also advised to call with any questions or concerns. Discharged from the wound clinic. This note was generated with [employer] software. It may contain incorrect words, spelling, and punctuation that were not noted in checking the note before signing.
== END 2018-11-04 23:59 ==
LOC: WC 11:00
PROVIDERS: Family Provider Internal Medicine; PCP Internal Medicine; Visit Provider Internal Medicine
DX: I89.0 Lymphedema, not elsewhere classified (principal); Z92.3 Personal history of irradiation; Z85.47 Personal history of malignant neoplasm of testis; L03.115 Cellulitis of right lower limb
CPT/HCPCS: 29581; 99202; 99212; 99213; G0463

== ENCOUNTER 2018-10-31 10:44 | Outpatient (RCR) | payer MEDICARE, OTHER, SELFPAY ==
[2018-10-01 11:35] VITALS: BMI 29.2
[2018-10-06 11:17] VITALS: BMI 29.2
[2018-10-07 12:11] LABS: International Normalized Ratio 1.7; Prothrombin Time (Protime)PT. 19.4 SECONDS (11.7-14.9)
[2018-10-20 11:56] LABS: International Normalized Ratio 1.6; Prothrombin Time (Protime)PT. 18.7 SECONDS (11.7-14.9)
[2018-10-31 12:20] LABS: International Normalized Ratio 1.7; Prothrombin Time (Protime)PT. 19.5 SECONDS (11.7-14.9)
== END 2018-11-04 16:30 | disposition home or self-care (01) ==
LOC: LAB 10:44
PROVIDERS: Family Provider Internal Medicine; PCP Internal Medicine; Referring Provider Internal Medicine Cardiovascular Disease; Visit Provider Internal Medicine Cardiovascular Disease
DX: I48.0 Paroxysmal atrial fibrillation (principal); Z79.01 Long term (current) use of anticoagulants
CPT/HCPCS: 36415; 85610

== ENCOUNTER 2018-11-17 11:15 | Outpatient (RCR) | payer MEDICARE, OTHER, SELFPAY ==
[2018-11-17 11:56] LABS: International Normalized Ratio 1.6; Prothrombin Time (Protime)PT. 18.8 SECONDS (11.7-14.9)
== END 2018-11-17 12:15 | disposition home or self-care (01) ==
LOC: LAB 11:15
PROVIDERS: Family Provider Internal Medicine; PCP Internal Medicine; Referring Provider Internal Medicine Cardiovascular Disease; Visit Provider Internal Medicine Cardiovascular Disease
DX: I48.0 Paroxysmal atrial fibrillation (principal); Z79.01 Long term (current) use of anticoagulants
CPT/HCPCS: 36415; 85610

== ENCOUNTER 2018-12-25 14:18 | Outpatient (RCR) | payer MEDICARE, OTHER, SELFPAY ==
[2018-12-09 11:46] LABS: International Normalized Ratio 2.2; Prothrombin Time (Protime)PT. 24.2 SECONDS (11.7-14.9)
[2018-12-25 17:06] LABS: International Normalized Ratio 2.2; Prothrombin Time (Protime)PT. 24.2 SECONDS (11.7-14.9)
== END 2019-01-04 12:00 | disposition home or self-care (01) ==
LOC: LAB 14:18
PROVIDERS: Family Provider Internal Medicine; PCP Internal Medicine; Referring Provider Internal Medicine Cardiovascular Disease; Visit Provider Internal Medicine Cardiovascular Disease
DX: I48.0 Paroxysmal atrial fibrillation (principal); Z79.01 Long term (current) use of anticoagulants
CPT/HCPCS: 36415; 85610

== ENCOUNTER 2019-01-23 10:35 | Outpatient (RCR) | payer MEDICARE, OTHER, SELFPAY ==
[2019-01-23 11:42] LABS: International Normalized Ratio 1.9; Prothrombin Time (Protime)PT. 21.6 SECONDS (11.7-14.9)
== END 2019-02-04 16:00 | disposition home or self-care (01) ==
LOC: LAB 10:35
PROVIDERS: Family Provider Internal Medicine; PCP Internal Medicine; Referring Provider Internal Medicine Cardiovascular Disease; Visit Provider Internal Medicine Cardiovascular Disease
DX: Z79.01 Long term (current) use of anticoagulants (principal)
CPT/HCPCS: 36415; 85610

== ENCOUNTER 2019-02-23 12:00 | Outpatient (RCR) | payer MEDICARE, OTHER, SELFPAY ==
[2019-02-23 13:04] LABS: Prothrombin Time (Protime)PT. 31.4 SECONDS (11.7-14.9)
== END 2019-02-23 13:00 | disposition home or self-care (01) ==
LOC: LAB 12:00
PROVIDERS: Family Provider Internal Medicine; PCP Internal Medicine; Referring Provider Internal Medicine Cardiovascular Disease; Visit Provider Internal Medicine Cardiovascular Disease
DX: Z79.01 Long term (current) use of anticoagulants (principal)
CPT/HCPCS: 36415; 85610

== ENCOUNTER 2019-03-30 11:10 | Outpatient (RCR) | payer MEDICARE, OTHER, SELFPAY ==
[2019-03-16 12:20] LABS: International Normalized Ratio 3.1; Prothrombin Time (Protime)PT. 32.5 SECONDS (11.7-14.9)
[2019-03-30 12:05] LABS: International Normalized Ratio 2.4; Prothrombin Time (Protime)PT. 25.8 SECONDS (11.7-14.9)
== END 2019-03-30 13:00 | disposition home or self-care (01) ==
LOC: LAB 11:10
PROVIDERS: Internal Medicine Cardiovascular Disease; Physician Assistant Medical; Family Provider Internal Medicine; PCP Internal Medicine; Referring Provider Internal Medicine Cardiovascular Disease; Visit Provider Internal Medicine Cardiovascular Disease
DX: Z79.01 Long term (current) use of anticoagulants (principal)
CPT/HCPCS: 36415; 85610

== ENCOUNTER → 2019-04-15 14:44 | Outpatient (CLI) | payer MEDICARE, OTHER, SELFPAY ==
[2019-04-09 15:23] VITALS: BMI 28.5
--- NOTE | 2019-04-15 14:48 | CT_ITS ---
STUDY: CTA CHEST REASON FOR EXAM: Male, 84 years old. Evaluation of thoracic aortic aneurysm. History of hypertension, previous thoracotomy and testicular cancer status post radiation therapy. RADIATION DOSAGE (If Supplied By Facility): CTDIvol = ( 16.73 ) mGy, DLP = ( 633.01 ) mGycm TECHNIQUE: The examination was performed with the intravenous administration of IV Isovue 300 100. Post-processing of the angiographic images was performed, with multiplanar reformation and 3D reconstruction. Individualized dose optimization techniques were used for this CT. COMPARISON: Prior chest CT exam of December 03, 2017 FINDINGS: Normal enhancement of the main pulmonary artery and right and left pulmonary arteries. Normal enhancement of the bilateral peripheral pulmonary arteries. There is no demonstrated pulmonary embolism. Dilatation, elongation and minimal calcified plaque of the thoracic aorta. The ascending aortic maximum diameter is 5.2 cm unchanged from prior exam. The mid arch diameter is 3.1 cm. The proximal ascending aorta/posterior arch is 3.8 cm. The mid descending aorta at the level of the pulmonary artery is 2.9 cm. The aorta at the diaphragm is 2.3 cm. There is no substantial change on [id number] comparison. There is no demonstrated aortic dissection. Normal heart and pericardium. Mild coronary calcifications. Normal mediastinum. Normal hilar regions. Normal visualized trachea and bronchi. Status post right thoracotomy with associated rib and chronic pleural changes. Stable mild chronic changes at the left lung base. Negative for pleural effusion. Normal chest wall structures. Demineralized osseous structures. Mild degenerative disc changes of the thoracic spine. Multiple simple hepatic cysts unchanged from prior exam. Small hiatal hernia. 11 mm dense nodule protruding from the posterior surface of the right kidney and an additional 11 mm noncystic nodule protruding from the lateral surface of the upper pole of the right kidney. CT/CTA Chest W/WO Contrast IMPRESSION: Stable generalized ectasia and aneurysmal dilatation of the thoracic aorta since the prior exam of December 03, 2017. Maximum dilatation 5.2 cm a sending aorta. No additional acute thoracic findings or changes. Numerous stable simple hepatic cysts. There are 2 suspicious nodules protruding from the right kidney included in the [id number]. The right kidney was not included in the prior CT exam. Stability is not confirmed. Dense cyst versus solid lesions. Ultrasound recommended. Electronically Signed: Nay Parks MD at 15:55 EDT , Service support ,
[2019-04-15 15:10] LABS: EGFR FINGERSTICK > 60.0000 mL/min (>60)
== END ==
PROVIDERS: Family Provider Internal Medicine; PCP Internal Medicine; Referring Provider Internal Medicine Cardiovascular Disease; Visit Provider Internal Medicine Cardiovascular Disease
DX: I71.2 Thoracic aortic aneurysm, without rupture (principal); I10 Essential (primary) hypertension; Z79.01 Long term (current) use of anticoagulants
CPT/HCPCS: 71275; Q9967

== ENCOUNTER 2019-04-17 11:53 | Outpatient (RCR) | payer MEDICARE, OTHER, SELFPAY ==
[2019-04-09 15:23] VITALS: BMI 28.5
[2019-04-13 12:51] LABS: International Normalized Ratio 2.3; Prothrombin Time (Protime)PT. 25.7 SECONDS (11.7-14.9)
[2019-04-17 12:48] LABS: International Normalized Ratio 1.9
== END 2019-04-17 18:00 | disposition home or self-care (01) ==
LOC: LAB 11:53
PROVIDERS: Family Provider Internal Medicine; PCP Internal Medicine; Referring Provider Internal Medicine Cardiovascular Disease; Visit Provider Internal Medicine Cardiovascular Disease
DX: Z79.01 Long term (current) use of anticoagulants (principal)
CPT/HCPCS: 36415; 85610

== ENCOUNTER → 2019-04-21 12:43 | Outpatient (CLI) | payer MEDICARE, OTHER, SELFPAY ==
[2019-04-09 15:23] VITALS: BMI 28.5
--- NOTE | 2019-04-21 12:49 | ART_ITS ---
Reason For Study: claudication Procedure A bilateral lower extremity continuous wave Doppler with analog waveform analysis,segmental pressures,and ankle brachial indexes with exercise. Left Segmental Pressures Left brachial= 155mmHg. Left posterior tibial artery = 175mmHg. Left dorsalis pedis artery = 162mmHg. The left dorsalis pedis waveforms are triphasic. The left posterior tibial artery waveforms are triphasic. Right Segmental Pressures Right brachial= 145mmHg. Right posterior tibial artery = 160mmHg. Right dorsalis pedis artery = 188mmHg. The right dorsalis pedis waveforms are triphasic. The right posterior tibial artery waveforms are triphasic. Indices The right ankle brachial index by the dorsalis pedis is 1.21. The right ankle brachial index by the posterior tibial artery is 1.03. The right post exercise ankle brachial index is 1.23. The left ankle brachial index by the dorsalis pedis is 1.05. The left ankle brachial index by the posterior tibial artery is 1.13. The left post exercise ankle brachial index is 1.20. Interpretation Summary Normal bilateral lower extremity resting ABBIE's and doppler waveforms Normal bilateral lower extremity indice response to exercise. Ordering Physician: Aaron Barrientos Performed By: CARLOS ARRIAZA [facility]
--- NOTE | 2019-04-21 12:49 | ADUL_ITS ---
Reason For Study: PAD Left Velocities Ext Iliac Artery, dist = 127.1 cm./sec. Common Femoral Artery, mid = 146.7 cm./sec. Supf. Femoral Artery, prox = 63.3 cm./sec. Supf. Femoral Artery, mid = 82.0 cm./sec. Supf. Femoral Artery, dist = 61.1 cm./sec. Profunda Femoral Artery = 99.9 cm./sec. Popliteal Artery, proximal, = 98.3 cm./sec. Popliteal Artery, mid = 58.8 cm./sec. Popliteal Artery, distal = 27.0 cm./sec. Ant.Tibial Artery, prox = 35.5 cm./sec. Ant Tibial Artery, mid = 58.2 cm./sec. Ant. Tibial Artery, distal = 44.0 cm./sec. Post. Tibial Artery, prox = 31.7 cm./sec. Post Tibial Artery, mid = 46.9 cm./sec. Post Tibial Artery, dist. = 45.0 cm./sec. Peroneal Artery, prox = 40.2 cm./sec. Peroneal Artery, mid = 45.0 cm./sec. Peroneal Artery,dist. = 29.8 cm./sec. Distal SFA measures .76 x .85 cm in short. Distal SFA measures .74 cm in long. Proximal POP Art measures 1.46 x 1.97 cm in short. Proximal POP Art measures 1.46 cm in long. Mid POP Art measures .8 x .8 cm in short. Mid POP Art measures .79 cm in long. Patent bypass graft noted in the groin. Procedure The exam was diagnostic. Exam performed in department. Interpretation Summary Left proximal popliteal artery aneurysm 1.46 x 1.97 x 1.46cm Patent left common femoral, superficial femoral, popliteal, anterior tibial, peroneal, and posterior tibial arteries. Patent left common femoral montoya of femoral to femoral crossover bypass graft. Previous left popliteal artery measurements on 11/09/16 were 1.5 x 1.5 x 1.5 cm Ordering Physician: Aaron Barrientos Performed By: Josiah Love RVT
== END ==
PROVIDERS: Family Provider Internal Medicine; PCP Internal Medicine; Referring Provider Surgery; Visit Provider Surgery
DX: I73.9 Peripheral vascular disease, unspecified (principal)
CPT/HCPCS: 93924; 93926

== ENCOUNTER 2019-06-01 10:32 | Outpatient (RCR) | payer MEDICARE, OTHER, SELFPAY ==
[2019-04-30 06:16] VITALS: BMI 28.3
[2019-05-11 11:54] LABS: International Normalized Ratio 2.1; Prothrombin Time (Protime)PT. 23.3 SECONDS (11.7-14.9)
[2019-06-01 11:44] LABS: International Normalized Ratio 2.5; Prothrombin Time (Protime)PT. 26.9 SECONDS (11.7-14.9)
== END 2019-06-01 18:00 | disposition home or self-care (01) ==
LOC: LAB 10:32
PROVIDERS: Family Provider Internal Medicine; PCP Internal Medicine; Referring Provider Internal Medicine Cardiovascular Disease; Visit Provider Internal Medicine Cardiovascular Disease
DX: Z79.01 Long term (current) use of anticoagulants (principal)
CPT/HCPCS: 36415; 85610

== ENCOUNTER 2019-06-29 10:43 | Outpatient (RCR) | payer MEDICARE, OTHER, SELFPAY ==
[2019-04-30 06:16] VITALS: BMI 28.3
[2019-06-29 11:25] LABS: International Normalized Ratio 1.3; Prothrombin Time (Protime)PT. 16.2 SECONDS (11.7-14.9)
== END 2019-06-29 18:00 | disposition home or self-care (01) ==
LOC: LAB 10:43
PROVIDERS: Family Provider Internal Medicine; PCP Internal Medicine; Referring Provider Internal Medicine Cardiovascular Disease; Visit Provider Internal Medicine Cardiovascular Disease
DX: Z79.01 Long term (current) use of anticoagulants (principal)
CPT/HCPCS: 36415; 85610

== ENCOUNTER 2019-10-06 14:24 | Outpatient (RCR) | payer MEDICARE, OTHER, SELFPAY ==
[2019-04-30 06:16] VITALS: BMI 28.3
[2019-09-28 14:22] VITALS: BMI 28.4
[2019-10-06 15:35] LABS: Prothrombin Time (Protime)PT. 22.9 SECONDS (11.7-14.9)
== END 2019-10-06 18:00 | disposition home or self-care (01) ==
LOC: LAB 14:24
PROVIDERS: Family Provider Internal Medicine; PCP Internal Medicine; Referring Provider Internal Medicine Cardiovascular Disease; Visit Provider Internal Medicine Cardiovascular Disease
DX: I48.0 Paroxysmal atrial fibrillation (principal); Z79.01 Long term (current) use of anticoagulants
CPT/HCPCS: 36415; 85610

== ENCOUNTER 2019-11-03 09:14 | Outpatient (RCR) | payer MEDICARE, OTHER, SELFPAY ==
[2019-09-28 14:22] VITALS: BMI 28.4
[2019-11-03 10:29] LABS: International Normalized Ratio 2.7; Prothrombin Time (Protime)PT. 28.1 SECONDS (11.7-14.9)
[2019-11-03 10:44] LABS: AST(SGOT) 36 U/L (15-37); Alanine Aminotransfer ALT/SGPT 32 U/L (16-61); Albumin, Serum 3.6 g/dL (3.2-5.0); Alkaline Phosphatase 81 U/L (45-117); Anion Gap 5 (5-15); BUN 28 mg/dL (7-18); BUN/Creat Ratio 21.2 RATIO (10-20); Bilirubin, Direct 0.11 mg/dL (0.00-0.30); Calcium,Total 10.1 mg/dL (8.5-10.1); Chloride 104 mmol/L (98-107); Cholesterol 205 mg/dL (200); Creatinine, Serum 1.32 mg/dL (0.70-1.30); EST Glomerular Filtration Rate 55 mL/min (>60); Est Glom Filt Rate - Afr Amer 67 mL/min (>60); Globulin 3.1 g/dL (2.2-4.2); Glucose 87 mg/dL (74-106); High Density Lipoprotein 60 mg/dL; Potassium 4.8 mmol/L (3.5-5.1); Protein, Total 6.7 g/dL (6.4-8.2); Sodium Level 134 mmol/L (136-145); Triglycerides 93 mg/dL; Very Low Density Lipoprotein 19 mg/dL (5-40)
== END 2019-11-05 18:00 | disposition home or self-care (01) ==
LOC: LAB 09:14
PROVIDERS: Family Provider Internal Medicine; PCP Internal Medicine; Referring Provider Internal Medicine Cardiovascular Disease; Visit Provider Internal Medicine Cardiovascular Disease
DX: I48.0 Paroxysmal atrial fibrillation (principal); Z79.01 Long term (current) use of anticoagulants; I73.9 Peripheral vascular disease, unspecified; I71.2 Thoracic aortic aneurysm, without rupture
CPT/HCPCS: 36415; 80048; 80061; 80076; 85610

== ENCOUNTER 2019-12-17 11:33 | Outpatient (RCR) | payer MEDICARE, OTHER, SELFPAY ==
[2019-09-28 14:22] VITALS: BMI 28.4
[2019-12-17 11:59] LABS: International Normalized Ratio 2.2; Prothrombin Time (Protime)PT. 24.3 SECONDS (11.7-14.9)
== END 2019-12-17 18:00 | disposition home or self-care (01) ==
LOC: LAB 11:33
PROVIDERS: Family Provider Internal Medicine; PCP Internal Medicine; Referring Provider Internal Medicine Cardiovascular Disease; Visit Provider Internal Medicine Cardiovascular Disease
DX: I48.0 Paroxysmal atrial fibrillation (principal); Z79.01 Long term (current) use of anticoagulants
CPT/HCPCS: 36415; 85610

== ENCOUNTER 2020-01-18 11:11 | Outpatient (RCR) | payer MEDICARE, OTHER, SELFPAY ==
[2019-09-28 14:22] VITALS: BMI 28.4
[2020-01-18 12:51] LABS: International Normalized Ratio 2.7; Prothrombin Time (Protime)PT. 28.6 SECONDS (11.7-14.9)
[2020-01-18 13:03] LABS: Hematocrit 32.4 % (40-54); Hemoglobin 10.5 g/dL (13.0-16.5); Mean Corp Hgb Conc 32.4 g/dL (32-36); Mean Corpuscular Hgb 31.6 pg (27.0-32.0); Mean Corpuscular Volume 97.6 fL (80-94); Mean Platelet Vol. 10.8 fl (6.2-12.0); Platelet Count 188 K/mm3 (150-450); RBC Distribution Width CV 15.7 % (11.6-14.6); RBC Distribution Width SD 55.5 fl (35.1-43.9); Red Blood Count 3.32 M/mm3 (4.6-6.2); White Blood Count 3.7 K/mm3 (4.4-11.0)
[2020-01-18 13:23] LABS: Anion Gap 6 (5-15); BUN 27 mg/dL (7-18); BUN/Creat Ratio 17.6 RATIO (10-20); Calcium,Total 9.4 mg/dL (8.5-10.1); Chloride 104 mmol/L (98-107); Creatinine, Serum 1.53 mg/dL (0.70-1.30); EST Glomerular Filtration Rate 46 mL/min (>60); Est Glom Filt Rate - Afr Amer 56 mL/min (>60); Ferritin 114 ng/mL (26-388); Glucose 80 mg/dL (74-106); Potassium 4.8 mmol/L (3.5-5.1); Sodium Level 134 mmol/L (136-145)
== END 2020-01-18 18:00 | disposition home or self-care (01) ==
LOC: LAB 11:11
PROVIDERS: Family Provider Internal Medicine; PCP Internal Medicine; Referring Provider Internal Medicine Cardiovascular Disease; Visit Provider Internal Medicine Cardiovascular Disease
DX: I48.0 Paroxysmal atrial fibrillation (principal); Z79.01 Long term (current) use of anticoagulants
CPT/HCPCS: 36415; 80048; 82728; 85027; 85610

== ENCOUNTER 2020-02-16 11:19 | Outpatient (RCR) | payer MEDICARE, OTHER, SELFPAY ==
[2020-01-28 09:12] VITALS: BMI 27.8
[2020-02-16 12:23] LABS: International Normalized Ratio 2.5; Prothrombin Time (Protime)PT. 26.2 SECONDS (11.7-14.9)
== END 2020-02-16 18:00 | disposition home or self-care (01) ==
LOC: LAB 11:19
PROVIDERS: Family Provider Internal Medicine; PCP Internal Medicine; Referring Provider Internal Medicine Cardiovascular Disease; Visit Provider Internal Medicine Cardiovascular Disease
DX: I48.0 Paroxysmal atrial fibrillation (principal); Z79.01 Long term (current) use of anticoagulants
CPT/HCPCS: 36415; 85610

== ENCOUNTER 2020-03-28 11:58 | Outpatient (RCR) | payer MEDICARE, OTHER, SELFPAY ==
[2020-01-28 09:12] VITALS: BMI 27.8
[2020-03-28 12:44] LABS: International Normalized Ratio 2.8
== END 2020-03-28 18:00 | disposition home or self-care (01) ==
LOC: LAB 11:58
PROVIDERS: Family Provider Internal Medicine; PCP Internal Medicine; Referring Provider Internal Medicine Cardiovascular Disease; Visit Provider Internal Medicine Cardiovascular Disease
DX: I48.0 Paroxysmal atrial fibrillation (principal); Z79.01 Long term (current) use of anticoagulants
CPT/HCPCS: 36415; 85610

== ENCOUNTER → 2020-04-11 10:49 | Outpatient (CLI) | payer MEDICARE, OTHER, SELFPAY ==
[2020-01-28 09:12] VITALS: BMI 27.8
--- NOTE | 2020-04-11 10:51 | ART_ITS ---
Reason For Study: PVD Procedure A bilateral lower extremity continuous wave Doppler with analog waveform analysis,segmental pressures,and ankle brachial indexes with exercise. Left Segmental Pressures Left brachial= 163mmHg. Left posterior tibial artery = 177mmHg. Left dorsalis pedis artery = 177mmHg. The left dorsalis pedis waveforms are triphasic. The left posterior tibial artery waveforms are triphasic. Right Segmental Pressures Right brachial= 153mmHg. Right posterior tibial artery = 178mmHg. Right dorsalis pedis artery = 178mmHg. The right dorsalis pedis waveforms are triphasic. The right posterior tibial artery waveforms are triphasic. Indices The right ankle brachial index by the dorsalis pedis is 1.09. The right ankle brachial index by the posterior tibial artery is 1.09. The right post exercise ankle brachial index is 1.01. The left ankle brachial index by the dorsalis pedis is 1.09. The left ankle brachial index by the posterior tibial artery is 1.09. The left post exercise ankle brachial index is 1.14. Interpretation Summary Normal bilateral lower extremity resting ankle brachial indices and triphasic waveforms. Minimal decline with exercise index on the right, likely not clinically significant Normal left lower extremity exercise response No significant change from the previous examination of April 21, 2019 Ordering Physician: Aaron Barrientos Referring Physician: Isabelle Ratliff M.D. Performed By: Nicci Blair RVT and Student
== END ==
PROVIDERS: PCP Internal Medicine; Referring Provider Surgery; Visit Provider Surgery
DX: I73.9 Peripheral vascular disease, unspecified (principal); M79.89 Other specified soft tissue disorders
CPT/HCPCS: 93924

== ENCOUNTER → 2020-04-28 10:56 | Outpatient (CLI) | payer MEDICARE, OTHER, SELFPAY ==
[2020-01-28 09:12] VITALS: BMI 27.8
[2020-04-26 12:02] VITALS: BMI 27.3
--- NOTE | 2020-04-28 10:57 | ECHOD_ITS ---
Reason For Study: VALVE REPL EVAL Procedure This was a 2D Doppler, Color Flow transthoracic echocardiogram. Exam performed in department. Left Ventricle Normal LV size. The estimated ejection fraction is 60 %. Diastolic function is indeterminate. No regional wall motion abnormalities noted. Right Ventricle Normal RV size. Normal systolic function. Atria Normal left atrium. Normal right atrium. No doppler evidence for ASD. Mitral Valve There is no mitral valve stenosis. No mitral valve insufficiency. Tricuspid Valve There is no tricuspid stenosis. Trivial tricuspid valve insufficiency. Pulmonary artery systolic pressure is 30-35 mmHg. Aortic Valve Trisinus/trileaflet aortic valve. There is no aortic stenosis. Mild (1+) aortic valve insufficiency. Pulmonic Valve There is no pulmonic valvular stenosis. Trivial pulmonic valve insufficiency. Great Vessels Severely dilated aortic root. Pericardium/Pleural No pericardial effusion. MMode/2D Measurements & Calculations LVIDd: 4.6 cm IVSd: 1.1 cm LVOT diam: 2.0 cm RVDd: 3.7 cm LVPWd: 0.98 cm LVOT area: 3.0 cm2 Ao root diam: 5.9 cm LAV(MOD-bp): 61.4 ml LA A4 area: 16.5 cm2 LAV(MOD-bp) Indexed: 31.4 ml/m2 LAV(MOD-sp2): 63.1 ml LAV(MOD-sp4): 48.2 ml LA dimension(2D): 3.8 cm RA A4 area: 15.5 cm2 Time Measurements MV dec time: 0.32 sec Doppler Measurements & Calculations MV E max hank: 64.2 cm/sec Lat Peak E' Hank: 3.9 cm/sec Med Peak E' Hank: 4.5 cm/sec MV A max hank: 98.6 cm/sec E/E' lat: 16.6 E/E' med: 14.2 MV E/A: 0.65 Ao V2 max: 135.2 cm/sec AI max hank: 377.1 cm/sec LV V1 max: 103.6 cm/sec Ao max P.3 mmHg AI max P.9 mmHg LV V1 max P.3 mmHg Ao V2 mean: 94.9 cm/sec LV V1 mean P.2 mmHg Ao mean P.0 mmHg AI dec slope: 155.5 cm/sec2 LV V1 mean: 70.5 cm/sec Ao V2 VTI: 32.2 cm AI P1/2t: 710.4 msec LV V1 VTI: 26.0 cm AUGUSTINA(I,D): 2.4 cm2 AUGUSTINA(V,D): 2.3 cm2 SV(LVOT): 77.9 ml PA V2 max: 84.6 cm/sec PI end-d hank: 90.7 cm/sec TR max hank: 260.8 cm/sec TR max P.2 mmHg Interpretation Summary The estimated ejection fraction is 60 %. Diastolic function is indeterminate. Severely dilated aortic root. Ordering Physician: Jaron Kellogg Referring Physician: SKIP LIANG Performed By: Shiela Akers, TALIACS, RVT
== END ==
PROVIDERS: PCP Internal Medicine; Referring Provider Internal Medicine Cardiovascular Disease; Visit Provider Internal Medicine Cardiovascular Disease
DX: R06.00 Dyspnea, unspecified (principal); Z98.890 Other specified postprocedural states
CPT/HCPCS: 93306

== ENCOUNTER 2020-05-11 11:48 | Outpatient (RCR) | payer MEDICARE, OTHER, SELFPAY ==
[2020-01-28 09:12] VITALS: BMI 27.8
[2020-04-26 12:02] VITALS: BMI 27.3
[2020-05-11 13:29] LABS: International Normalized Ratio 2.4
== END 2020-05-11 18:00 | disposition home or self-care (01) ==
LOC: LAB 11:48
PROVIDERS: Family Provider Internal Medicine; PCP Internal Medicine; Referring Provider Internal Medicine Cardiovascular Disease; Visit Provider Internal Medicine Cardiovascular Disease
DX: I48.0 Paroxysmal atrial fibrillation (principal); Z79.01 Long term (current) use of anticoagulants
CPT/HCPCS: 36415; 85610

== ENCOUNTER → 2020-06-01 14:56 | Outpatient (CLI) | payer MEDICARE, OTHER, SELFPAY ==
[2020-05-25 10:25] VITALS: BMI 28.4
--- NOTE | 2020-06-01 14:57 | CT_ITS ---
HISTORY: Follow up ascending aortic aneurysm, larger on recent echo TECHNIQUE: Helically acquired images were obtained of the chest following the intravenous administration of 100 ML of Isovue 300 Iodinated contrast. as per pulmonary angiogram protocol with 2D , without 3-D MIP reconstructions. A radiation dose optimization technique was used for this scan. COMPARISON: Most recent comparison chest CT is from February 13, 2019. Study before that is December 03, 2017. FINDINGS: # of images incl. paperwork: [id number] Scarring within the right hemithorax likely with partial rib resection, and tiny focal chronic loculated pneumothorax adjacent to the posterior margin of the left anterior fifth rib is the same as on the 2 previous studies without change.. No effusions. Within the thoracic spinethere is a mild kyphosis Vertebral body height is normal. Facets are well aligned. Some Schmorl's node invaginations are present. No acute rib fractures are perceived. Heart is enlarged. Coronary artery disease remains Thoracic aorta , at the ascending portion, behind the sternum, at the level of the main pulmonary artery, on today's study, axial images, measures 5.9 x 5.6 cm Do my best to measure with microcyst in the same position on the same slice of the previous study of April 15, 2019 and measured the ascending thoracic aorta at that time to be 5.5 x 5.5 cm, suggesting that it has minimally increased by 4 mm in anterior posterior dimension since that time. Additional comparison is made to the December 03 study, again with attempts made to measure at the same level. At that time, I measure the outer to outer diameter of the ascending thoracic aorta to be 5.3 x 5.5 cm.. No stenoses, dissections, nor occlusions. No axillary or mediastinal adenopathy. Although no pulmonary emboli are identified, the timing of this study was optimized for the thoracic aorta, therefore, the negative predictive value to exclude pulmonary embolism is significantly diminished The liver is heterogeneous. There are few well-defined hypodense lesions within the liver. These are similar to the previous CTs, and likely benign cyst. Tiny hiatal hernia remains. Renal atrophy remains. Hyperdense right renal cysts nodule is similar but better demonstrated than the April 15 study, and likely a hyperdense, hemorrhagic cysts. CT/CTA Chest W/WO Contrast IMPRESSION: No pulmonary embolism, or aortic dissection. On today's study I measure the ascending thoracic aortic aneurysm at 5.9 x 5.6 cm. By my measurements on the 2 previous studies, tried to choose the same slice, and cursor position is the same, I measure the most recent of April 15 5.5 x 5.5 cm, and then the December 03, 2017 study of 5.3 x 5.5 cm. This is consistent with an increase in size, however, pulsation's, volume status, cursor placement, and choice of slice as to where to extract the measurements could account for a 4 mm difference. Continued follow-up is warranted Previous right lung surgery with scarring to the pleural the pleural space and the right fifth rib with persistent tiny pneumothoraces. These 2 tiny pneumothoraces have been present since December 03, 2017 and are unchanged Individualized dose optimization techniques were used for this CT. at 0634 Reported and signed by: Samuel Carey MD Electronically Signed: Samuel Carey MD at 6:33 EST Tel , Service support ,
[2020-06-01 15:36] LABS: CREATININE FINGERSTICK 1.2 mg/dL (0.70-1.30)
== END ==
PROVIDERS: PCP Internal Medicine; Referring Provider Physician Assistant Medical; Visit Provider Physician Assistant Medical
DX: I71.2 Thoracic aortic aneurysm, without rupture (principal)
CPT/HCPCS: 71275; Q9967

== ENCOUNTER 2020-06-24 11:35 | Outpatient (RCR) | payer MEDICARE, OTHER, SELFPAY ==
[2020-05-25 10:25] VITALS: BMI 28.4
[2020-06-24 11:58] LABS: International Normalized Ratio 1.8; Prothrombin Time (Protime)PT. 20.6 SECONDS (11.7-14.9)
== END 2020-06-24 18:00 | disposition home or self-care (01) ==
LOC: LAB 11:35
PROVIDERS: Family Provider Internal Medicine; PCP Internal Medicine; Referring Provider Internal Medicine Cardiovascular Disease; Visit Provider Internal Medicine Cardiovascular Disease
DX: I48.0 Paroxysmal atrial fibrillation (principal); Z79.01 Long term (current) use of anticoagulants
CPT/HCPCS: 36415; 85610

== ENCOUNTER 2020-09-05 11:29 | Outpatient (RCR) | payer MEDICARE, OTHER, SELFPAY ==
[2020-05-25 10:25] VITALS: BMI 28.4
[2020-09-05 12:04] LABS: International Normalized Ratio 1.9; Prothrombin Time (Protime)PT. 21.6 SECONDS (11.7-14.9)
== END 2020-09-05 18:00 | disposition home or self-care (01) ==
LOC: LAB 11:29
PROVIDERS: Family Provider Internal Medicine; PCP Internal Medicine; Referring Provider Internal Medicine Cardiovascular Disease; Visit Provider Internal Medicine Cardiovascular Disease
DX: I48.0 Paroxysmal atrial fibrillation (principal); Z79.01 Long term (current) use of anticoagulants
CPT/HCPCS: 36415; 85610

== ENCOUNTER 2020-10-31 11:22 | Outpatient (RCR) | payer MEDICARE, OTHER, SELFPAY ==
[2020-05-25 10:25] VITALS: BMI 28.4
[2020-10-31 11:58] LABS: International Normalized Ratio 2.2; Prothrombin Time (Protime)PT. 23.7 SECONDS (11.7-14.9)
== END 2020-10-31 18:00 | disposition home or self-care (01) ==
LOC: LAB 11:22
PROVIDERS: Family Provider Internal Medicine; PCP Internal Medicine; Referring Provider Internal Medicine Cardiovascular Disease; Visit Provider Internal Medicine Cardiovascular Disease
DX: I48.0 Paroxysmal atrial fibrillation (principal); Z79.01 Long term (current) use of anticoagulants
CPT/HCPCS: 36415; 85610

== ENCOUNTER 2020-12-12 10:31 | Outpatient (RCR) | payer MEDICARE, OTHER, SELFPAY ==
[2020-05-25 10:25] VITALS: BMI 28.4
[2020-12-12 11:08] LABS: International Normalized Ratio 2.8; Prothrombin Time (Protime)PT. 28.8 SECONDS (11.7-14.9)
== END 2020-12-12 18:00 | disposition home or self-care (01) ==
LOC: LAB 10:31
PROVIDERS: Family Provider Internal Medicine; PCP Internal Medicine; Referring Provider Physician Assistant Medical; Visit Provider Physician Assistant Medical
DX: I48.0 Paroxysmal atrial fibrillation (principal); Z79.01 Long term (current) use of anticoagulants
CPT/HCPCS: 36415; 85610

== ENCOUNTER 2021-02-20 10:21 | Outpatient (RCR) | payer MEDICARE, OTHER, SELFPAY ==
[2021-01-03 14:06] VITALS: BMI 29.9
[2021-02-20 12:35] LABS: International Normalized Ratio 2.4
== END 2021-02-20 18:00 | disposition home or self-care (01) ==
LOC: LAB 10:21
PROVIDERS: Family Provider Internal Medicine; PCP Internal Medicine; Referring Provider Physician Assistant Medical; Visit Provider Physician Assistant Medical
DX: I48.0 Paroxysmal atrial fibrillation (principal); Z79.01 Long term (current) use of anticoagulants
CPT/HCPCS: 36415; 85610

== ENCOUNTER 2021-03-16 15:01 | Emergency (ER) | payer MEDICARE, OTHER, SELFPAY ==
[2021-03-16 15:01] VITALS: BP 169/73; PULSE 55; RESP 16; TEMP 37; O2SAT 100; BMI 28.1
[2021-03-16 15:32] VITALS: BP 136/61; PULSE 53; RESP 19; O2SAT 98
--- NOTE | 2021-03-16 15:45 | EKG12_ITS ---
Test Reason : Blood Pressure : / mmHG Vent. Rate : 052 BPM Atrial Rate : 052 BPM P-R Int : 252 ms QRS Dur : 098 ms QT Int : 520 ms P-R-T Axes : 046 023 103 degrees QTc Int : 483 ms Sinus bradycardia with 1st degree A-V block T wave abnormality, consider anterior ischemia Prolonged QT Abnormal ECG Confirmed by HETAL COLON, MICHELLE ([id number]), editorial writer TANIA GRIFFITHS ([id number]) on 03/20/2021 11:38:04 AM Referred By: ALETA Confirmed By:MICHELLE FONG MD
--- NOTE | 2021-03-16 15:46 | EX.ED.DYSGE1 ---
HPI History of Present Illness Chief Complaint: Abn Labs Informant: patient and family Onset/Context/Timing Onset: Today Narrative Narrative: Sent in from [employer] secondary to hyperkalemia. Patient had open heart surgery with ascending aorta replacement a week and a half ago at [facility]. He came home to the hospital 5 days ago. He had routine lab work this morning as follow-up and potassium was reported to be 6.1. Patient does report mild cough that is been ongoing for several days. No fever or chills. [facility] Medical History Abnormal stress echo Cellulitis of right lower extremity Chronic acquired lymphedema Chronic anemia Essential (primary) hypertension Expressive aphasia Lymphedema of right lower extremity Neurological deficit, transient Nonobstructive atherosclerosis of coronary artery Osteoarthritis Paroxysmal atrial fibrillation Peripheral vascular occlusive disease PMR (polymyalgia rheumatica) Sarcoidosis Swelling of lower extremity Tachy-nubia syndrome Testicular cancer Thoracic aortic aneurysm (TAA) Home Medications aspirin 81 mg tablet,delayed release 81 mg PO QDAY 11/04/17 [History Last Taken 01/07/18] ferrous sulfate 325 mg (65 mg iron) tablet 325 mg PO DAILY 09/28/19 [History Last Taken Unknown] warfarin 5 mg tablet 5 mg PO .COMPLEX #102 tab 11/07/20 [Rx Last Taken Unknown] cholecalciferol (vitamin D3) 50 mcg (2,000 unit) capsule 50 mcg PO DAILY 01/03/21 [History Last Taken Unknown] multivitamin 1 tab PO DAILY 01/03/21 [History Last Taken Unknown] amiodarone 200 mg tablet 200 mg PO DAILY 03/14/21 [History Last Taken Unknown] atorvastatin 20 mg tablet 20 mg PO QHS 03/14/21 [History Last Taken Unknown] furosemide 20 mg tablet 20 mg PO DAILY 03/14/21 [History Last Taken Unknown] guaifenesin 1,200 mg tablet, extended release 12 hr 1,200 mg PO BID PRN 03/14/21 [History Last Taken Unknown] metoprolol tartrate 25 mg tablet 25 mg PO BID 03/14/21 [History Last Taken Unknown] potassium chloride 20 mEq tablet,extended release 20 meq PO DAILY 03/14/21 [History Last Taken Unknown] Allergy/AdvReac Type Severity Reaction Status Date / Time lisinopril Allergy Severe Itchy red Verified 03/16/21 15:04 hives all over Penicillins [PCN] Allergy Rash Verified 03/16/21 15:04 Sulfa (Sulfonamide Allergy Other Verified 03/16/21 15:04 Antibiotics) clopidogrel [From Plavix] AdvReac rash/itchin Verified 03/16/21 15:04 g hydrochlorothiazide AdvReac rash Verified 03/16/21 15:04 Family History Mother Cancer Brother Diabetes Heart disease PPM Surgical History H/O total hip arthroplasty (03/2017) History of aortic valve repair (03/06/21) History of aorto-femoral bypass (11/2004) History of left heart catheterization (09/19/20) History of open reduction and internal fixation (ORIF) procedure History of orchiectomy, unilateral History of thoracic aortic aneurysm repair (03/06/21) History of thoracotomy Social History Smoking Status: Never smoker alcohol intake: current alcohol intake frequency: 0-2 drinks per day Alcohol type: beer substance use type: does not use caffeine: Yes Type: coffee Number of servings: 1 ROS ROS ED Constitutional Constitutional ED: Denies chills or fever(s) Eyes Eyes: Denies change in vision ENT ENT ED: Denies sore throat Cardiovascular Cardiovascular: Reports chest pain and other Details: Postop chest wall pain Respiratory/Chest Respiratory/Chest: Reports cough; Denies dyspnea Gastrointestinal Gastrointestinal: Denies abdominal pain, diarrhea, nausea or vomiting Genitourinary Genitourinary ED: Denies dysuria Musculoskeletal Musculoskeletal: Denies back pain Integumentary Denies rash Neurologic Neurologic: Denies headache(s) or weakness Allergic/Immunologic Allergic/Immunologic ED: Denies urticaria EXAM Physical Exam Const Vital Signs: 03/16/21 15:01 03/16/21 15:32 Temperature 98.6 F Temperature Source Temporal Pulse Rate 55 L 53 L Respiratory Rate 16 19 H Respiratory Effort Normal Non-Labored Respiratory Pattern Normal Blood Pressure 169/73 H 136/61 H Blood Pressure Mean 105 86 Pulse Ox 100 98 Oxygen Delivery Method Room Air Room Air Positive well nourished and well developed General Appearance ED: well developed HEENT Reports normocephalic and head/scalp atraumatic Eyes PERRL and EOMs intact bilaterally Neck supple Chest Wall palpation of chest normal Chest Narrative: Well-healing midline chest incision. Resp normal respiratory effort and clear to auscultation bilaterally Cardio regular rhythm Rate: bradycardia GI normal to inspection, nondistended, normoactive bowel sounds Palpation: soft Extremity normal to inspection Neuro oriented x3 Neuro Narrative: No focal neuro deficits. Sensorium / Orientation: alert Psych mental status grossly normal MDM MDM MDM Narrative Medical decision making narrative: Portable chest x-ray and lab work is obtained. Patient is placed on site monitor. EKG ordered. Lab Data Attestation: I reviewed the patient's lab results. Labs: Laboratory Results - last 24 hr 03/16/21 03/16/21 16:00 16:00 WBC 8.7 RBC 3.09 L Hgb 9.6 L Hct 28.2 L MCV 91.3 MCH 31.1 MCHC 34.0 RDW Std Deviation 51.5 H RDW Coeff of [place] 15.5 H Plt Count 443 MPV 9.7 Immature Gran % (Auto) 2.200 H Neut % (Auto) 83.8 H Lymph % (Auto) 5.7 L [place] % (Auto) 5.6 Eos % (Auto) 2.5 Baso % (Auto) 0.2 Absolute Neuts (auto) 7.3 Absolute Lymphs (auto) 0.50 L Nucleated RBC % 0 Sodium 130 L Potassium 5.0 Chloride 103 Carbon Dioxide 23.0 Anion Gap 4 L BUN 26 H Creatinine 1.60 H Estim Creat Clear Calc 32.66 Est GFR (MDRD) Af Amer 53 L Est GFR (MDRD) Non-Af 44 L BUN/Creatinine Ratio 16.2 Glucose 131 H Calcium 10.3 H Radiography Chest X-Ray - ED: 1 View, Read by ED Physician and Chronic Changes Diagnostic Testing: Radiology Impression Chest X-Ray 03/16/21 16:05 IMPRESSION: Cardiac enlargement. No acute findings. Electronically Signed: Ariana Mendez MD at 16:17 EDT Tel , Service support , EKG Initial EKG: Attestation: I personally reviewed and interpreted this EKG as follows: Interpretation: Sinus Bradycardia (Sinus bradycardia 52 bpm. Nonspecific T wave flattening.) Treatment and Re-Evaluation Comments:: Repeat evaluation patient resting comfortably. Chest x-ray reveals chronic postop changes but no acute findings. Lab work does reveal low sodium, however improved when compared to labs from this morning. Potassium this morning was 6.1 and tonight on repeat is 5.0. Patient is reassured and will follow up with his doctors as scheduled. Discharge Plan Triage Chief Complaint: Abn Labs ED Provider: Mitzi Amador Dx/Rx/DC Orders Clinical Impression: Feared condition not demonstrated Prescriptions: No Action aspirin [Adult Aspirin Regimen] 81 mg tablet,delayed release (DR/EC) 81 mg PO QDAY RF: 0 ferrous sulfate [Feosol] 325 mg (65 mg iron) tablet 325 mg PO DAILY RF: 0 cholecalciferol (vitamin D3) 50 mcg (2,000 unit) capsule 50 mcg PO DAILY RF: 0 multivitamin Tablet 1 tab PO DAILY RF: 0 warfarin 5 mg tablet 5 mg PO .COMPLEX Qty: 102 RF: 3 atorvastatin 20 mg tablet 20 mg PO QHS RF: 0 amiodarone 200 mg tablet 200 mg PO DAILY RF: 0 potassium chloride 20 mEq tablet extended release 20 meq PO DAILY RF: 0 Mucinex 1,200 mg tablet extended release 12hr 1,200 mg PO BID PRNRF: 0 metoprolol tartrate 25 mg tablet 25 mg PO BID RF: 0 furosemide 20 mg tablet 20 mg PO DAILY RF: 0 Primary Care Provider: Isabelle Ratliff Referrals: Isabelle Ratliff MD [Primary Care Provider] - Activity Restrictions/Additional Instructions: As discussed, your repeat potassium level is normal at 5.0. Please follow-up with your physicians as previously scheduled. Disposition Disposition: Home, Self Care
--- NOTE | 2021-03-16 16:05 | RAD_ITS ---
STUDY: X-RAY CHEST REASON FOR EXAM: Male, 86 years old. sob TECHNIQUE: Single AP portable view of the chest. COMPARISON: 12/27/2017. CTA chest 06/01/2020. FINDINGS: The lungs are clear and expanded. No pleural effusion. Mild fibrotic changes in the right lung base. There is moderate cardiac enlargement. Prior sternotomy and left atrial clipping. Normal mediastinum and leo. Normal visualized pulmonary arteries. Aortic arch stent graft. Normal visualized thoracic spine. Normal visualized ribs, clavicles, and shoulders. There is no demonstrated abnormality of the visualized soft tissue structures of the upper abdomen. RAD/Chest 1 View (Portable) IMPRESSION: Cardiac enlargement. No acute findings. Electronically Signed: Ariana Mendez MD at 16:17 EDT Tel , Service support ,
[2021-03-16 16:16] LABS: Absolute Neutrophil Count 7.3 X10^3/uL (2.0-7.7); Basophil# 0.02 X10^3/uL; Basophil% 0.2 % (0-1); Eosinophil# 0.22 X10^3/uL; Eosinophils% 2.5 % (0-5); Hematocrit 28.2 % (40-54); Hemoglobin 9.6 g/dL (13.0-16.5); Lymphocyte % 5.7 % (19-41); Mean Corpuscular Hgb 31.1 pg (27.0-32.0); Mean Corpuscular Volume 91.3 fL (80-94); Mean Platelet Vol. 9.7 fl (6.2-12.0); Monocyte# 0.49 X10^3/uL; Monocyte% 5.6 % (0-10); NRBC Flagged by Analyzer 0 % (0-5); Neutrophil # 7.29 X10^3/uL (2.7-7.7); Neutrophil % 83.8 % (47-70); POSITIVE DIFFERENTIAL YES; Platelet Count 443 K/mm3 (150-450); RBC Distribution Width CV 15.5 % (11.6-14.6); RBC Distribution Width SD 51.5 fl (35.1-43.9); Red Blood Count 3.09 M/mm3 (4.6-6.2); White Blood Count 8.7 K/mm3 (4.4-11.0)
[2021-03-16 16:22] LABS: Differential Indicated SCAN CRITERIA MET
[2021-03-16 16:26] LABS: Anion Gap 4 (5-15); BUN 26 mg/dL (7-18); BUN/Creat Ratio 16.2 RATIO (10-20); Calcium,Total 10.3 mg/dL (8.5-10.1); Chloride 103 mmol/L (98-107); EST Glomerular Filtration Rate 44 mL/min (>60); Est Glom Filt Rate - Afr Amer 53 mL/min (>60); Estimated Creatinine Clearance 32.66 ml/min; Glucose 131 mg/dL (74-106); Sodium Level 130 mmol/L (136-145)
[2021-03-16 16:51] LABS: Differential Comment SCANNED
[2021-03-16 16:55] VITALS: BP 156/87; PULSE 73; RESP 15; O2SAT 95
== END 2021-03-16 16:56 | disposition home or self-care (01) ==
PROVIDERS: Emergency Provider Emergency Medicine; PCP Internal Medicine
DX: Z71.1 Person with feared health complaint in whom no diagnosis is made (principal); I11.9 Hypertensive heart disease without heart failure; I48.0 Paroxysmal atrial fibrillation; D64.9 Anemia, unspecified; M19.90 Unspecified osteoarthritis, unspecified site; M35.3 Polymyalgia rheumatica; Z79.82 Long term (current) use of aspirin; Z79.01 Long term (current) use of anticoagulants; Z79.899 Other long term (current) drug therapy
CPT/HCPCS: 71045; 80048; 85025; 93005; 99284; A4216

== ENCOUNTER 2021-03-28 10:46 | Outpatient (RCR) | payer MEDICARE, OTHER, SELFPAY ==
[2021-03-08 00:21] VITALS: BMI 29.9
[2021-03-14 11:56] LABS: Prothrombin Time (Protime)PT. 21.5 SECONDS (11.7-14.9)
[2021-03-21 12:21] LABS: International Normalized Ratio 2.9; Prothrombin Time (Protime)PT. 29.8 SECONDS (11.7-14.9)
[2021-03-28 11:55] LABS: International Normalized Ratio 2.3; Prothrombin Time (Protime)PT. 24.4 SECONDS (11.7-14.9)
== END 2021-03-28 18:00 | disposition home or self-care (01) ==
LOC: LAB 10:46
PROVIDERS: Internal Medicine Cardiovascular Disease; Family Provider Internal Medicine; PCP Internal Medicine; Referring Provider Physician Assistant Medical; Visit Provider Physician Assistant Medical
DX: I48.0 Paroxysmal atrial fibrillation (principal); Z79.01 Long term (current) use of anticoagulants
CPT/HCPCS: 36415; 85610

== ENCOUNTER 2021-04-18 11:42 | Outpatient (RCR) | payer MEDICARE, OTHER, SELFPAY ==
[2021-04-06 22:01] VITALS: BMI 29.9
[2021-04-11 11:28] LABS: International Normalized Ratio 1.6; Prothrombin Time (Protime)PT. 18.6 SECONDS (11.7-14.9)
[2021-04-18 12:15] LABS: International Normalized Ratio 2.1; Prothrombin Time (Protime)PT. 22.4 SECONDS (11.7-14.9)
== END 2021-05-07 18:00 | disposition home or self-care (01) ==
LOC: LAB 11:42
PROVIDERS: Family Provider Internal Medicine; PCP Internal Medicine; Referring Provider Physician Assistant Medical; Visit Provider Physician Assistant Medical
DX: I48.0 Paroxysmal atrial fibrillation (principal); Z79.01 Long term (current) use of anticoagulants
CPT/HCPCS: 36415; 85610

== ENCOUNTER → 2021-05-03 13:34 | Outpatient (CLI) | payer MEDICARE, OTHER, SELFPAY ==
--- NOTE | 2021-05-03 13:45 | PCM.CR.ITP ---
Diagnosis - General Information Admitting Diagnosis: Heart Valve Repair, Thoracic Aneurysm Repair Secondary Diagnosis: Anemia, Hypertension, Lymphedema right lower extremety Personal Learning Style:: Audio/Visual, Written Barriers to Learning: Vision Impairment Stage of change r/t lifestyle modifications:: Action Gave educational material for:: Treating Heart Disease, Emotions & Heart Disease, Stress Management & Relaxation, Sleep Disorders & Heart Disease, How The Heart Works, What it means to have Heart Disease, How Coronary Artery Disease is Diagnosed, Heart Procedures, What Heart Medications Do, Risk Factors & Modifications, Living an Active Life, Nutrition - Education/Goals Individual Counseling: Initial Assessment: Abnormal Cholesterol Levels, High Blood Pressure, Overweight/Obesity Cardiac Rehabilitation Goals: 1. Maintain the individual as the primary focus of care. 2. To improve the patient's quality of life. 3. Identification of cardiac risk factors and provide cardiac risk factor management. 4. Enhance the psychosocial status of the patient. 5. Reconditioning enough to allow the patient to resume customary activities. 6. Control symptoms of cardiac disease Personal Goals: Initial Assessment: Improve energy level, Get back to work, or to resume activities faster, Improve muscle strength and endurance Scale for measuring improvement of personal goals: Enter appropriate number in Comments. 2 = Unchanged. 3 = Slightly Better. 4 = Moderate Improvement. 5 = Met my Goal - Diagnosis & Disease Process Outcomes/Goals: Pt IDs own risk factors & lifestyle modifications by Session 10, Verbalizes symptoms of angina & response by session 3., Pt independently manages Plan/Interventions: Assist Pt to ID & engage in lifestyle modification to reduce CVD risk, Instruct on individual risk factors, Review symptoms of angina & emergency actions, Review secondary diagnosis & identify educational needs. - Safety Referral to Physical Therapy: No Referral to [facility] Case Management: No Fall Risk Assessed:: Yes Assistive Devices:: Cane Exercise - Initial Assessment - Visit Date of Eval: 05/03/21 Session #:: 0 - Pre-cardiac Rehab evaluation Mets: Pre-: >5 METS for 30 minutes by discharge - Physician Prescribed Exercise Modalities: Treadmill, Airdyne, NuStep Frequency: 3x/week for 12 weeks [36 sessions] Intensity: 60-80% of age predicted maximum heart rate reserve Current METSs:: 2.0 Target Heart Rate:: 81-108 Resting Blood Pressure: 135/74 EKG Type: Sinus bradycardia w/1st degree AV block - Outcomes & Goals Goals:: Verbalizes understanding of THR, RPE & goal METS by session 6, Documents in home exercise log/reports 30 min aerobic 5 day/wk by DC, Demonstrates accurate pulse taking by DC - Intervention & Plan Exercise Program Goals: Instruct on personal THR & RPE, Instruct on MET level & personal MET goal, Show patient to take own pulse /validate performance until accurate, Instruct on home exercise - Physical Activity Home Exercise Physical Activity - Home Exercise: Safe Exercise, Warm-up, Self-monitoring, Cool-Down, Home Exercise > 30 min Daily, Sitting Time <3 hours/daily - Outcomes & Goals Outcomes/Goals: Demonstrates correct Warm-up/exercise Cool-Down (S3) if = 2.5 METs, Verbalizes symptoms of exercise intolerance by Session 3 (S3), Demonstrate safe equipment use (S3) & follows exercise prescrition (6) - Intervention & Plan Plan/Intervention: Instruct warm-up & cool-down if exercising at > 2 METs, Instruct on symptoms of exercise intolerance & actions to take, Instruct & monitor on saf, Assess intial functional capacity & safety risk Nutrition - Initial Assessment - Program Goals Nutrition Program Goals: LDL <100 optimal. 100 - 129 Near optimal. 130 - 159 Borderline High. 160 - 189 High. Total Cholesterol <200 desirable. 200 - 239 Borderline High. >/= 240 High. HDL < 40 Low >/=60 High. Triglycerides <150 desirable. <199 optimal. VlDL 5 - 40. HgbA1C <7%. BMI <25 Patient has diagnosis of Hyperlipidemia (ICD E78)?: Yes - Visit Date of Assessment:: 05/03/21 Session #:: 0 - Pre-cardiac rehab evaluation - Cholesterol/Lipids Triglycerides (mg/dL): 93 Total Cholesterol (mg/dL): 205 LDL Cholesterol (mg/dL): 126 HDL Cholesterol (mg/dL): 60 Determine presence & major risk factors that modify LDL goal: Hypertension or hypertensive medication, Family history of premature CHD in Male < 55 years: female <65 yearsFa, Age men > 45 years; women >/= 55 years Outcomes/Goals: Pt IDs own risk factors & lifestyle modifications by Session 10, Verbalizes symptoms of angina & response by session 3., Pt independently manages Intervention/Plan: Instruct on personal lipid levels & lipid goals/NCEP guidelines, Instruct on cholesterol Referral to dietitian:: Yes - Medical Nutrition Therapy - Diabetes (Other Core Measures) Diabetes Type: Not Applicable - Weight Mgt (Other Care) Not Applicable: Yes Height: 5 ft 8 in Weight:: 173 lb BMI: 26.3 Diagnosis Overweight/Obesity BMI> 30% ICD-10 E66: No Diagnosis High BMI/Morbid Obesity BMI> 35% ICD-10 Z68: No Outcomes/Goals: Pt sets, maintains & shows weight loss goal & trend during rehab Intervention/Plan: Instruct on ideal BMI & set weight loss goal w/patient - Healthy Eating Habits Will attend diet classes:: Yes Outcomes/Goals:: Consume diet rich in vegs,fruits,whole grain/high fiber,fish,lean meat, Limit sat/trans fats,cholesterol & added salts & sugars Intervention/Plan:: Assess current eating habits - Education Gave educational materials for:: Healthy eating Nutrition - 30-Day Assessment Nutrition - 60-Day Assessment Nutrition - 90-Day Assessment Nutrition - Final Assessment Medical - Initial Assessment - Visit Date of Eval: 05/03/21 Session #:: 0 - Pre-cardiac rehab evaluation - Medication Compliance Preventative Medication(s):: Aspirin, Beta jhony, Warfarin/Coumadin H/O mental health issues: depression, anxiety, or addiction?: No Doesn?t believe in the benefits of treatment?: No Believes medications are unnecessary or harmful?: No Has a concern about medication side effects?: No Expresses concern over the cost of medications?: No Outcomes/Goals: Verbalizes medications,desired effect & common side effects @ DC, Pt self-reports following medication regimen, Keeps card in wallet w/medications listed by DC Interventions/plans: Instruct on medication effects & side effects, Review medication list w/patient every two weeks, Instruct importance of taking meds as ordered & assist problem solving - Tobacco Use Tobacco Use: Non-smoker - Hypertension Hypertension Diagnosis:: Hypertension ICD-10 I10 Resting Blood Pressure:: 135/74 [employer] Hypertension Guidelines: [place] [employer] Hypertension Guidelines. Normal BP Less than 120/80. Elevated BP 120/80. Hypertension Stage 1: BP 130-139/80-89. Hypertesnion Stage 2: BP 140 or higher/90 or higher. Hypertension Crisis: BP higher than 180/120 Outcomes/Goals: Able to verbalize/achieve optimal blood pressure <130/80, Incorporates diet changes & exercise for blood pressure control by DC Interventions/plan: Instruct on optimal blood pressure, hypertension & medications, Instruct on effects of sodium, alcohol, stress, exercise &hypertension - Tobacco Cessation Referral Smoking Cessation Referral:: No Individual Education/Counseling:: No Education Schedule Given:: Yes - Online education resources and printed patient education book provided. Medical- 30-Day Assessment Medical- 60-Day Assessment Medical- 90-Day Assessment Medical - Final Assessment Psychosocial - Initial Assess - VIsit Date of Eval: 05/03/21 Session #:: 0 - Pre-cardiac rehab evaluation Not Applicable: Yes History of previous Mental disease:: No - Psychosocial Test Tool Used:: [employer] Power QOL Cardiac, PHQ-9 Questionnaire phq-9 Severity: Severity. 1-4 Minimal Depression. 5-9 Mild Depression. 10-14 Moderate Depression. 15-19 Moderately Sever Depression. 20-27 Severe Depression. Rule: - Referral to Behavioral Health PS - Interventions: Yes Attend Stress Management Classes, No Referral to Behavioral Health if PHQ-9 score >9:, No Referral to [facility], No Referral to Physician if PHQ-9 if score is 5-9: - Outcomes/Goals: See list Psychosocial Outcomes/Goals:: ID's personal stressors & 2 strategies to manage stress by discharge - Intervention/Plan: See List Interventions/Plan:: Assess stressors,coping strategies & signs of derpression on admission, Instruct/assist pt to develop coping & personal stress Mgt strategies, Instruct patient to recognize signs & symptoms of depression, Instruct patient to recog Psychosocial - 30-Day Assess Psychosocial - 60-Day Assess Psychosocial - 90-Day Assess Psychosocial - Final Assessmen Patient Health Questionnaire Initial Assessment 1. Little interest or pleasure in doing things: Not at all 2. Feeling down, depressed, or hopeless: Not at all 3. Trouble falling or staying asleep, or sleeping too much: Not at all 4. Feeling tired or having little energy: Nearly every day - Absolutely associated with the anemia. 5. Poor appetite or overeating: Several days 6. Feeling bad about yourself -- or that you are a failure or have let yourself or your family down: Not at all 7. Trouble concentrating on things, such as reading the newspaper or watching television: Not at all 8. Moving or speaking so slowly that other people could have noticed. Or the opposite - being so fidgety or restless that you have been moving around a lot more than usual: Not at all 9. Thoughts that you would be better off , or of hurting yourself in some way: Not at all How difficult have these problems made it for you to do your work, take care of things at home, or get along with other people?: Very difficult - Hasn't been able to get outside to clean up his garden (faily good size) due to the fatigue and shortness of breath he believes is associated with the anemia. Total Score: 4 TODD-Q SV Test - Statements CAD is a disease of the arteries in the heart: False Examples of risk factors for heart disease: True Angina is chest pain or discomfort: True The benefits of resistance training include: True Eating more meat and dairy products: False Anti-platelet medications such as aspirin are important: True The only effective way to manage stress: False An exercise warm-up slowly increases heart rate: I Don't Know Prepared, processed foods usually have high sodium: True Depression is common after a heart attack: I Don't Know The statin medications lower cholesterol: True To control blood pressure, lower the amount of sodium: True If someone gets chest discomfort during walking: False Transfats are partially hydrogenated vegetable oils: True Sleep apnea that is not treated increases the risk: False To control cholesterol, one should become a vegetarian: False Someone knows if he/she is exercising at the right level: I Don't Know Diabetes cannot be prevented with exercise & health eating: False Stress is a large risk for heart attack: I Don't Know A diet that can help lower blood pressure is rich in: False - Total Score Total Correct Responses: 15 Self-Efficacy Initial Assessment We would like to know how confident you are in doing certain activities. Please select your confidence level for:: Select your confidence level for the following using the scale 1-10 where 1 is not at all confident and 10 is totally confident. Your score is the average of all 6 responses. Fatigue: How confident are you that you can keep the fatigue caused by your disease from interfering with the things you want to do? Select Number: 1 Physical Discomfort or Pain: How confident are you that you can keep the physical discomfort or pain of your disease from interfering with the things you want to do? Select Number: 3 Emotional Distress: How confident are you that you can keep the emotional distress caused by your disease from interfering with the things you want to do? Select Number: 1 Other Symptoms or Health Problems: How confident are you that you can keep other symptoms or health problems from interfering with the things you want to do? Select Number: 3 Different Tasks and Activities: How confident are you that you can do the different tasks and activities needed to manage your health condition so as to reduce your need to see a doctor? Select Number: 9 Medication: How confident are you that you can do things other than just taking medication to reduce how much your illness affects your everyday life? Select Number: 7 Total Score:: 4 Nutrition Survey - Nutrition Survey Initial Have you lost >10 lbs over the past 2 months without trying?: Yes Are you following a special diet at home for diabetes, low fat, or low salt?: No Are you interested in meeting with a dietitian for help understanding your diet?: No Do you eat less than 3 meals a day?: No Do you eat fatty meats (hutchins, sausage, ribs, etc), fried foods, desserts, large amounts of salad dressings, margarine, butter, or cheese most days?: Yes Do you have food allergies? [Enter types in comment field]: No Do you eat in restaurants more than 3 times a week?: No Do you season food with salt, seasoning salt, or garlic salt?: Yes Do you used canned, boxed, frozen meals, or soups, seasoning packets?: Yes Total Score:: 4
--- NOTE | 2021-05-03 13:46 | CR.HP_ITS ---
CR - History & Physical - General Arrival date:: 05/03/21 Arrival time:: 13:45 Date of Referral:: 04/26/21 Date of CR Evaluation:: 05/03/21 - Under the order of Dr. Sharma Referring Physician: Dr. Jacob Sharma Primary Diagnosis: Heart Valve Repair, Thoracic Aneurysm Repair - History of Present Cardiac Event Onset Date: Enter Onset Date of cardiac illnesses in Comment field below Heart valve replacement or repair:: Yes - Heart Valve repair/ Thoracic aortic aneurysm repair 03/06/2021 Type of Symptoms:: Routine cardiology follow-up, history of PAD. Sent to [facility] for evaluation. He underwent ewxtensive surgery for aortic valve repair, left atrial appendage clipping, aortic root remodeling and repair of the ascending aorta and total arch with a frozen elephant trunkthoracic stent graft and a left subclavian stent. Interventions with present event:: Heart cath following abnormal stress test heart cath here at [facility]. Were there any complications?: Very anemic and progressive dyspnea, has inquired assistance from PCP. - Sleep Disorder Evaluation Hx of Sleep Apnea: No Do you snore loudly (louder than talking or can be heard through closed doors)?: Yes Do you often feel tired/ fatigued/ sleepy during daytime?: Yes Has anyone observed you stop breathing during sleep?: No History of Hypertension (for STOP score): Yes - Patient has never been officially tested although he has been told he may have IVY. STOP Results: Positive - Medications Home Medications: Ambulatory Orders Medication Instructions Recorded aspirin 81 mg tablet,delayed 81 mg PO QDAY 11/04/17 release ferrous sulfate 325 mg (65 mg 325 mg PO DAILY 09/28/19 iron) tablet warfarin 5 mg tablet 5 mg PO .COMPLEX #102 tab 11/07/20 cholecalciferol (vitamin D3) 50 50 mcg PO DAILY 01/03/21 mcg (2,000 unit) capsule multivitamin 1 tab PO DAILY 01/03/21 furosemide 40 mg tablet 40 mg PO DAILY tab 04/15/21 metoprolol tartrate 25 mg tablet 12.5 mg PO BID tab 04/15/21 doxycycline hyclate 100 mg tablet 100 mg PO BID tab 04/26/21 - Allergies Allergies/Adverse Reactions: Allergies lisinopril Allergy (Severe, Verified 04/26/21 08:54) Itchy red hives all over Penicillins [PCN] Allergy (Verified 04/26/21 08:54) Rash Sulfa (Sulfonamide Antibiotics) Allergy (Verified 04/26/21 08:54) Other SHAKING clopidogrel [From Plavix] Adverse Reaction (Verified 04/26/21 08:54) rash/itching hydrochlorothiazide Adverse Reaction (Verified 04/26/21 08:54) rash Advanced Directives - Advanced Directives Power of Etiquette Teacher: Yes Living Will: Yes Advance Directives Information Provided: No Advance Directives on File: Yes - Chloeves they are from previous hip surgery DNR Order?:: No - MOLST See MOLST form: No Past Medical History - Covid-19 Screening Fever: No Unexplained muscle aches: No Current respiratory symptoms: No Upper respiratory infections symptoms: No Gastro-intestinal symptoms: No Ydy-Xyef-Ogreju symptoms: No Has tested positive for COVID-19 in last 30 days: No Date of testin08/25/20 - [employer] inital vaccine and is getting the booster vaccine next week. Had contact w/person w/symptoms or Covid-19 (+) last 14 days: No Has High Risk Exposures ID'd by Health dept/Inf Control team: No 65 years or older:: Yes Lives in Assisted Living facility:: No Has a chronic lung disease or moderate to severe asthma:: No Has a serious heart condition:: Yes Immunocompromised:: Yes Severely obese (Body Mass Index of 40 or higher):: No Diabetic:: No Has chronic kidney disease undergoing dialysis:: No Has liver disease:: No - Past Medical Illness Medical History: Past Medical History (Last Reviewed 04/26/21 @ 12:[address] Jacob Sharma MD) Abnormal stress echo R94.39 Cellulitis of right lower extremity L03.115 Chronic acquired lymphedema I89.0 Chronic anemia D64.9 Essential (primary) hypertension I10 Expressive aphasia R47.01 Lymphedema of right lower extremity I89.0 Neurological deficit, transient R29.818 10 minute expressive aphasia Nonobstructive atherosclerosis of coronary artery I25.10 Mild luminal irregularities less than 30% 2020 Osteoarthritis M19.90 Paroxysmal atrial fibrillation I48.0 Peripheral vascular occlusive disease I73.9 fem-fem bypass 11/2004 Pleural effusion J90 Small to moderate left pleural effusion with associated compressive atelectasis/infiltrate. Small right pericardial effusion. 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 Testicular cancer C62.90 radiation 196 Thoracic aortic aneurysm (TAA) I71.2 - Past Surgical History Surgical History: Past Surgical History (Last Reviewed 04/26/21 @ 12:[address] Jacob Sharma MD) H/O total hip arthroplasty Onset Date: 03/2017 Z96.649 03/26/17 History of aortic valve repair Onset Date: 03/06/21 Z98.890, Z86.79 Tricuspid Repair w/ Commissural Suture Annuloplasty Left-Right commissure, Right-Non commissure and Non-Left commissure 03/06/21 History of aorto-femoral bypass Onset Date: 11/2004 Z95.828 History of left heart catheterization Onset Date: 09/19/20 Z98.890 01/07/18; 09/19/20 History of open reduction and internal fixation (ORIF) procedure Z98.890 olecranon fracture History of orchiectomy, unilateral Z90.79 History of thoracic aortic aneurysm repair Onset Date: 03/06/21 Z98.890, Z86.79 Aortic Valve Repair; Left Atrial Appendage Ligation with a 35 mm Atriclip; Aortic root remodelling, repair ascending aorta and total arch, Frozen Elephant Trunk B-SAFER CTAG thoacic stent graft, left sbclavian stent 03/06/21 History of thoracotomy Z98.890 right lung: CHEST SURGERY,THORACOTOMY sarcoidosis Surgical History: no surgical history - Family History Summary Family History: Family History (Last Reviewed 04/26/21 @ 12:[address] Jacob Sharma MD) Mother Cancer Brother Diabetes Heart disease PPM Social History - Smoking History Smoking Status: Never smoker Hx Tobacco Use: No Hx Smoking Exposure: No - Alcohol Use Alcohol Usage: Yes - 0-2 beers daily. Since surgery has only had 1 single beer. Occas. wine - Substance Abuse Hx Substance Use: No - Occupation Occupation (List type of work in comments):: Retired - Hobbies, Recreation, Social Activities Hobbies: Other - gardening, travel when able. Recreational Activities: I am able to engage in a few activities - in the house can function but slowly. Outside has not been so easy. Social Environment - Status Marital Status: - Current Living Arrangements Living Environment:: Spouse - Edwina Bullock (significant other) - Children How many children do you have?: 1 - daughter and she uis helping now Do any of your children live nearby?: No - She lives in [place]. - Safety Do you feel safe in your surroundings?: Yes - Assistance Do you need any assistance at home?: DAughter is assisting at home right now, and lady friend from [employer]. Review of Systems - Review of Systems Hints: Right click = Denies ([place]). Left click = Reports ([place]) Review of Present Symptoms: Reports: Shortness of Breath with Exertion - mostly associated with the anemia, patient has spoken to Dr. Ratliff about possible injections as an intervention to the anemia., Dizziness/Lightheadedness - very rarely and if does occur wehn standing from a sitting position to quickly., Fatigue, Heart Arrhythmia/Irregularities - sick sinus syndrome, Paroxysmal atrial fibrillation post operative, tachy-nubia syndrome, Appetite - Normal - has always been a small eater, Appetite - Special Diet - none, Sleep - Normal - Yes for me, rarely has trouble sleeping at night.. Denies: Operative Discomfort, Sexual Changes - Pain Is Patient Pain Free?: Yes Pain Location: none Pain Level: 0/10 Risk Factor Assessment - Chief Complaint Chief Complaint: PT is a [address] Sh[address] who has previous cardiology disease adn peripheral atrerial disease who recently had extensive coronary surgery for aortic valve repair and aortic root repair at the [facility]. - Vital Signs Temperature: 97.8 F Respiratory Rate: 16 Pulse Ox: 98 Blood Pressure: 135/74 - Pulse Pulse Rate: 48 Pulse Rhythm: Regular - Hypertension Blood Pressure Sitting - Left Arm: 135/74 - Blood Cholesterol/Lipids Total Cholesterol (mg/dL) Goal = less than 200 mg/dL: 205 HDL Cholesterol (mg/dL) Goal = less than 40 mg/dL: 60 LDL Cholesterol (mg/dL) Goal = less than 70 mg/dL: 126 Triglycerides (mg/dL) Goal = less than 150 mg/dL: 93 - Obesity Height: 5 ft 8 in Weight:: 173 lb Weight in Pounds: 173.0 lbs Weight Source: Standing Scale Body Mass Index (BMI): 26.3 Nutritional Referral for Obesity: No - Physical Inactivity Physical Inactivity: None - Risk Stratification Risk Guidelines: Lowest Risk: Risk Factor for Smoking, Risk Factor for Dyslipidemia, Risk Factor for Diabetes, Risk Factor for Obesity, Risk Factor for Depression, Moderate Risk: Risk Factor for Hypertension, Highest Risk: Risk Factor for Sedentary Lifestyle - Patient believes is absolutely associated with his anemia problem. - Family History Family History: Family History (Last Reviewed 04/26/21 @ 12:[address] Jacob Sharma MD) Mother Cancer Brother Diabetes Heart disease Motivation - Motivation to Participate On a scale of 1 to 10, how prepared are you to commit to attending program?: 9 What do you see as barriers to successfully being able to complete the program?: shortnessof breath ad the anemia issue. Hopes he can get it addressed soon What do you see as the benefits of succesfully completing the program? In other words, what do you hope to get out of participating in the program?: Being able to function daily more easily. Are there issues you are dealing with that will interfere with completing the program?: Relative shortenss of breath, has spoken to Dr. Ratliff. Do you have a spouse or signficant other, family or friends who will help support you to complete the program?: Yes
[2021-05-03 14:32] VITALS: BP 135/74; PULSE 48; RESP 16; TEMP 36.6; O2SAT 98; BMI 26.3
[2021-05-03 14:33] VITALS: BP 135/74; BMI 26.3
== END ==
PROVIDERS: PCP Internal Medicine; Referring Provider Internal Medicine Cardiovascular Disease; Visit Provider Internal Medicine Cardiovascular Disease
DX: I71.2 Thoracic aortic aneurysm, without rupture (principal); I10 Essential (primary) hypertension; D64.9 Anemia, unspecified; Z95.4 Presence of other heart-valve replacement; Z79.01 Long term (current) use of anticoagulants

== ENCOUNTER 2021-06-05 10:30 | Outpatient (RCR) | payer MEDICARE, OTHER, SELFPAY ==
[2021-05-03 14:33] VITALS: BMI 26.3
== END 2021-06-06 23:59 ==
LOC: CR 10:30
PROVIDERS: PCP Internal Medicine; Referring Provider Internal Medicine Cardiovascular Disease; Visit Provider Internal Medicine Cardiovascular Disease
DX: I71.2 Thoracic aortic aneurysm, without rupture (principal); Z98.890 Other specified postprocedural states; Z86.79 Personal history of other diseases of the circulatory system; J90 Pleural effusion, not elsewhere classified; T81.89XA Other complications of procedures, not elsewhere classified, initial encounter; I49.5 Sick sinus syndrome; I48.0 Paroxysmal atrial fibrillation; I73.9 Peripheral vascular disease, unspecified; I10 Essential (primary) hypertension; D64.9 Anemia, unspecified; I89.0 Lymphedema, not elsewhere classified
CPT/HCPCS: 93798

== ENCOUNTER 2021-06-05 11:02 | Outpatient (RCR) | payer MEDICARE, OTHER, SELFPAY ==
[2021-05-03 14:33] VITALS: BMI 26.3
[2021-05-07 20:18] VITALS: BMI 29.9
[2021-05-08 11:46] LABS: International Normalized Ratio 1.4; Prothrombin Time (Protime)PT. 16.3 SECONDS (11.7-14.9)
[2021-05-15 12:22] LABS: International Normalized Ratio 1.2; Prothrombin Time (Protime)PT. 14.4 SECONDS (11.7-14.9)
[2021-05-22 12:49] LABS: International Normalized Ratio 1.6; Prothrombin Time (Protime)PT. 18.4 SECONDS (11.7-14.9)
[2021-05-29 13:11] LABS: International Normalized Ratio 1.9; Prothrombin Time (Protime)PT. 20.8 SECONDS (11.7-14.9)
[2021-06-05 11:42] LABS: International Normalized Ratio 3.1; Prothrombin Time (Protime)PT. 31.4 SECONDS (11.7-14.9)
== END 2021-06-06 18:00 | disposition home or self-care (01) ==
LOC: LAB 11:02
PROVIDERS: Family Provider Internal Medicine; PCP Internal Medicine; Referring Provider Physician Assistant Medical; Visit Provider Physician Assistant Medical
DX: I48.0 Paroxysmal atrial fibrillation (principal); Z79.01 Long term (current) use of anticoagulants
CPT/HCPCS: 36415; 85610

== ENCOUNTER 2021-06-28 10:30 | Outpatient (RCR) | payer MEDICARE, OTHER, SELFPAY ==
[2021-05-03 14:33] VITALS: BMI 26.3
--- NOTE | 2021-06-07 09:48 | PCM.CR.ITP ---
Diagnosis Exercise - 30-day Assessment - Visit Date of Eval: 06/07/21 Session #:: 11 - Physician Prescribed Exercise Modalities: Treadmill, NuStep, SciFit Frequency: 3x/week for 12 weeks [36 sessions] Intensity: 60-80% of age predicted maximum heart rate reserve Current METSs:: 3.5 Target Heart Rate:: 81-108 Current RPE:: 12-13 Maximum Excercise HR:: 69 Resting Blood Pressure: 150/62 - Please review resting BPs. Maximum Exercise Blood Pressure: 168/80 EKG Type: Sinus nubia to sinus rhythm with 1st degree block rare PAC Current Physical Activity or Exercising minutes: 39:16 - Outcomes & Goals Goals:: Verbalizes understanding of THR, RPE & goal METS by session 6, Documents in home exercise log/reports 30 min aerobic 5 day/wk by DC, Demonstrates accurate pulse taking by DC - Intervention & Plan Exercise Program Goals: Instruct on personal THR & RPE, Instruct on MET level & personal MET goal, Show patient to take own pulse /validate performance until accurate, Instruct on home exercise - 30-day Reassessments 30 day Reassessments:: Progressing - Physical Activity Home Exercise Physical Activity - Home Exercise: Safe Exercise, Warm-up, Self-monitoring, Cool-Down, Home Exercise > 30 min Daily, Sitting Time <3 hours/daily - Outcomes & Goals Outcomes/Goals: Demonstrates correct Warm-up/exercise Cool-Down (S3) if = 2.5 METs, Verbalizes symptoms of exercise intolerance by Session 3 (S3), Demonstrate safe equipment use (S3) & follows exercise prescrition (6) - Intervention & Plan Plan/Intervention: Instruct warm-up & cool-down if exercising at > 2 METs, Instruct on symptoms of exercise intolerance & actions to take, Instruct & monitor on saf, Assess intial functional capacity & safety risk - 30-day Reassessments 30 day Reassessments:: Progressing Nutrition - Initial Assessment Nutrition - 30-Day Assessment - Program Goals Nutrition Program Goals: LDL <100 optimal. 100 - 129 Near optimal. 130 - 159 Borderline High. 160 - 189 High. Total Cholesterol <200 desirable. 200 - 239 Borderline High. >/= 240 High. HDL < 40 Low >/=60 High. Triglycerides <150 desirable. <199 optimal. VlDL 5 - 40. HgbA1C <7%. BMI <25 Patient has diagnosis of Hyperlipidemia (ICD E78)?: Yes - Visit Date of Assessment:: 06/07/21 Session #:: 11 - Cholesterol/Lipids Triglycerides (mg/dL): 93 Total Cholesterol (mg/dL): 205 LDL Cholesterol (mg/dL): 126 HDL Cholesterol (mg/dL): 60 Determine presence & major risk factors that modify LDL goal: Hypertension or hypertensive medication, Family history of premature CHD in Male < 55 years: female <65 yearsFa, Age men > 45 years; women >/= 55 years Outcomes/Goals: Pt IDs own risk factors & lifestyle modifications by Session 10, Verbalizes symptoms of angina & response by session 3., Pt independently manages Intervention/Plan: Instruct on personal lipid levels & lipid goals/NCEP guidelines, Instruct on cholesterol Referral to dietitian:: Yes - Medical Nutrition Therapy 30-day Reassessments:: Progressing - Diabetes (Other Core Measures) Diabetes Type: Not Applicable - Weight Mgt (Other Care) Not Applicable: Yes Height: 5 ft 8 in Weight:: 183 lb 8 oz BMI: 27.8 Diagnosis Overweight/Obesity BMI> 30% ICD-10 E66: No Diagnosis High BMI/Morbid Obesity BMI> 35% ICD-10 Z68: No Outcomes/Goals: Pt sets, maintains & shows weight loss goal & trend during rehab Intervention/Plan: Instruct on ideal BMI & set weight loss goal w/patient 30 day Reassessments:: Met - Healthy Eating Habits Will attend diet classes:: Yes Outcomes/Goals:: Consume diet rich in vegs,fruits,whole grain/high fiber,fish,lean meat 30-day Reassessments:: Met - Education Gave educational materials for:: Healthy eating Nutrition - 60-Day Assessment Nutrition - 90-Day Assessment Nutrition - Final Assessment Medical - Initial Assessment Medical- 30-Day Assessment - Visit Date of Eval: 06/07/21 Session #:: 11 - Medication Compliance Preventative Medication(s):: Aspirin, Beta jhony, Warfarin/Coumadin H/O mental health issues: depression, anxiety, or addiction?: No Doesn?t believe in the benefits of treatment?: No Believes medications are unnecessary or harmful?: No Has a concern about medication side effects?: No Expresses concern over the cost of medications?: No Outcomes/Goals: Verbalizes medications,desired effect & common side effects @ DC, Pt self-reports following medication regimen, Keeps card in wallet w/medications listed by DC Interventions/plans: Instruct on medication effects & side effects, Review medication list w/patient every two weeks, Instruct importance of taking meds as ordered & assist problem solving 30-day Reassessments:: Progressing - Tobacco Use Tobacco Use: Non-smoker - Hypertension Hypertension Diagnosis:: Hypertension ICD-10 I10 Resting Blood Pressure:: 150/62 [place] [employer] Hypertension Guidelines: [place] [employer] Hypertension Guidelines. Normal BP Less than 120/80. Elevated BP 120/80. Hypertension Stage 1: BP 130-139/80-89. Hypertesnion Stage 2: BP 140 or higher/90 or higher. Hypertension Crisis: BP higher than 180/120 Peak Exercise Blood Pressure:: 168/80 Outcomes/Goals: Able to verbalize/achieve optimal blood pressure <130/80, Incorporates diet changes & exercise for blood pressure control by DC Interventions/plan: Instruct on optimal blood pressure, hypertension & medications, Instruct on effects of sodium, alcohol, stress, exercise &hypertension 30 day Reassessments:: Progressing - Tobacco Cessation Referral Smoking Cessation Referral:: No Individual Education/Counseling:: No Education Schedule Given:: Yes Medical- 60-Day Assessment Medical- 90-Day Assessment Medical - Final Assessment Psychosocial - Initial Assess Psychosocial - 30-Day Assess - VIsit Date of Eval: 06/07/21 Session #:: 11 Not Applicable: Yes History of previous Mental disease:: No - Psychosocial Test Tool Used:: PHQ-9 Questionnaire phq-9 Severity: Severity. 1-4 Minimal Depression. 5-9 Mild Depression. 10-14 Moderate Depression. 15-19 Moderately Sever Depression. 20-27 Severe Depression. Rule: - Referral to Behavioral Health PS - Interventions: Yes Attend Stress Management Classes, No Referral to Behavioral Health if PHQ-9 score >9:, No Referral to [facility], No Referral to Physician if PHQ-9 if score is 5-9: - Outcomes/Goals: See list Psychosocial Outcomes/Goals:: ID's personal stressors & 2 strategies to manage stress by discharge - Intervention/Plan: See List Interventions/Plan:: Assess stressors,coping strategies & signs of derpression on admission, Instruct/assist pt to develop coping & personal stress Mgt strategies, Instruct patient to recognize signs & symptoms of depression, Instruct patient to recog - 30-day Reassessments: 30 day Reassessments:: Progressing Psychosocial - 60-Day Assess Psychosocial - 90-Day Assess Psychosocial - Final Assessmen Patient Health Questionnaire 30-Day Re-eval Assessment 1. Little interest or pleasure in doing things: Not at all 2. Feeling down, depressed, or hopeless: Not at all 3. Trouble falling or staying asleep, or sleeping too much: Not at all 4. Feeling tired or having little energy: More than half the days 5. Poor appetite or overeating: Several days 6. Feeling bad about yourself -- or that you are a failure or have let yourself or your family down: Not at all 7. Trouble concentrating on things, such as reading the newspaper or watching television: Not at all 8. Moving or speaking so slowly that other people could have noticed. Or the opposite - being so fidgety or restless that you have been moving around a lot more than usual: Not at all 9. Thoughts that you would be better off , or of hurting yourself in some way: Not at all How difficult have these problems made it for you to do your work, take care of things at home, or get along with other people?: Somewhat difficult Total Score: 3 Self-Efficacy 30-Day Re-eval Assessment We would like to know how confident you are in doing certain activities. Please select your confidence level for:: Select your confidence level for the following using the scale 1-10 where 1 is not at all confident and 10 is totally confident. Your score is the average of all 6 responses. Fatigue: How confident are you that you can keep the fatigue caused by your disease from interfering with the things you want to do? Select Number: 4 Physical Discomfort or Pain: How confident are you that you can keep the physical discomfort or pain of your disease from interfering with the things you want to do? Select Number: 5 Emotional Distress: How confident are you that you can keep the emotional distress caused by your disease from interfering with the things you want to do? Select Number: 4 Other Symptoms or Health Problems: How confident are you that you can keep other symptoms or health problems from interfering with the things you want to do? Select Number: 9 Different Tasks and Activities: How confident are you that you can do the different tasks and activities needed to manage your health condition so as to reduce your need to see a doctor? Select Number: 8 Medication: How confident are you that you can do things other than just taking medication to reduce how much your illness affects your everyday life? Select Number: 8 Total Score:: 6 Nutrition Survey
[2021-06-07 10:13] VITALS: BP 150/62; BP 168/80; BMI 27.8
== END 2021-07-07 23:59 ==
LOC: CR 10:30
PROVIDERS: PCP Internal Medicine; Referring Provider Internal Medicine Cardiovascular Disease; Visit Provider Internal Medicine Cardiovascular Disease
DX: I73.9 Peripheral vascular disease, unspecified (principal); I71.2 Thoracic aortic aneurysm, without rupture; Z98.890 Other specified postprocedural states; Z86.79 Personal history of other diseases of the circulatory system; J90 Pleural effusion, not elsewhere classified; T81.89XA Other complications of procedures, not elsewhere classified, initial encounter; I49.5 Sick sinus syndrome; I48.0 Paroxysmal atrial fibrillation; D64.9 Anemia, unspecified; I89.0 Lymphedema, not elsewhere classified; I10 Essential (primary) hypertension
CPT/HCPCS: 93798

== ENCOUNTER 2021-06-28 10:54 | Outpatient (RCR) | payer MEDICARE, OTHER, SELFPAY ==
[2021-05-03 14:33] VITALS: BMI 26.3
[2021-06-07 03:36] VITALS: BMI 29.9
[2021-06-07 10:13] VITALS: BMI 27.8
[2021-06-28 13:47] LABS: International Normalized Ratio 3.2; Prothrombin Time (Protime)PT. 31.7 SECONDS (11.7-14.9)
== END 2021-07-08 18:00 | disposition home or self-care (01) ==
LOC: LAB 10:54
PROVIDERS: Family Provider Internal Medicine; PCP Internal Medicine; Referring Provider Physician Assistant Medical; Visit Provider Physician Assistant Medical
DX: I48.0 Paroxysmal atrial fibrillation (principal); Z79.01 Long term (current) use of anticoagulants
CPT/HCPCS: 36415; 85610

== ENCOUNTER 2021-10-02 11:54 | Outpatient (RCR) | payer MEDICARE, OTHER, SELFPAY ==
[2021-06-07 10:13] VITALS: BMI 27.8
[2021-07-09 04:50] VITALS: BMI 29.9
[2021-10-02 12:39] LABS: International Normalized Ratio 1.3; Prothrombin Time (Protime)PT. 15.2 SECONDS (11.7-14.9)
== END 2021-10-05 18:00 | disposition home or self-care (01) ==
LOC: LAB 11:54
PROVIDERS: Family Provider Internal Medicine; PCP Internal Medicine; Referring Provider Physician Assistant Medical; Visit Provider Physician Assistant Medical
DX: I48.0 Paroxysmal atrial fibrillation (principal); Z79.01 Long term (current) use of anticoagulants
CPT/HCPCS: 36415; 85610

== ENCOUNTER 2021-10-31 11:32 | Outpatient (RCR) | payer MEDICARE, OTHER, SELFPAY ==
[2021-06-07 10:13] VITALS: BMI 27.8
[2021-10-06 03:25] VITALS: BMI 29.9
[2021-10-11 12:40] LABS: International Normalized Ratio 1.7; Prothrombin Time (Protime)PT. 19.4 SECONDS (11.7-14.9)
[2021-10-31 12:00] LABS: International Normalized Ratio 2.5; Prothrombin Time (Protime)PT. 26.7 SECONDS (11.7-14.9)
== END 2021-10-31 18:00 | disposition home or self-care (01) ==
LOC: LAB 11:32
PROVIDERS: Family Provider Internal Medicine; PCP Internal Medicine; Referring Provider Physician Assistant Medical; Visit Provider Physician Assistant Medical
DX: I48.0 Paroxysmal atrial fibrillation (principal); Z79.01 Long term (current) use of anticoagulants
CPT/HCPCS: 36415; 85610

== ENCOUNTER 2021-11-28 10:42 | Outpatient (RCR) | payer MEDICARE, OTHER, SELFPAY ==
[2021-06-07 10:13] VITALS: BMI 27.8
[2021-11-05 03:50] VITALS: BMI 29.9
[2021-11-28 12:09] LABS: International Normalized Ratio 2.5; Prothrombin Time (Protime)PT. 26.8 SECONDS (11.7-14.9)
== END 2021-11-28 18:00 | disposition home or self-care (01) ==
LOC: LAB 10:42
PROVIDERS: Family Provider Internal Medicine; PCP Internal Medicine; Referring Provider Physician Assistant Medical; Visit Provider Physician Assistant Medical
DX: I48.0 Paroxysmal atrial fibrillation (principal); Z79.01 Long term (current) use of anticoagulants
CPT/HCPCS: 36415; 85610

== ENCOUNTER 2022-01-30 11:00 | Outpatient (RCR) | payer MEDICARE, OTHER, SELFPAY ==
[2021-06-07 10:13] VITALS: BMI 27.8
[2021-12-05 21:04] VITALS: BMI 29.9
[2022-01-15 12:47] LABS: International Normalized Ratio 1.7; Prothrombin Time (Protime)PT. 19.4 SECONDS (11.7-14.9)
[2022-01-30 11:38] LABS: International Normalized Ratio 3.2; Prothrombin Time (Protime)PT. 32.1 SECONDS (11.7-14.9)
== END 2022-02-04 02:49 | disposition home or self-care (01) ==
LOC: LAB 11:00
PROVIDERS: Family Provider Internal Medicine; PCP Internal Medicine; Referring Provider Physician Assistant Medical; Visit Provider Physician Assistant Medical
DX: I48.0 Paroxysmal atrial fibrillation (principal); Z79.01 Long term (current) use of anticoagulants
CPT/HCPCS: 36415; 85610

== ENCOUNTER 2022-03-05 11:34 | Outpatient (RCR) | payer MEDICARE, OTHER, SELFPAY ==
[2021-06-07 10:13] VITALS: BMI 27.8
[2022-02-04 02:50] VITALS: BMI 29.9
[2022-03-05 12:44] LABS: International Normalized Ratio 2.5; Prothrombin Time (Protime)PT. 26.3 SECONDS (11.7-14.9)
== END 2022-03-05 18:00 | disposition home or self-care (01) ==
LOC: LAB 11:34
PROVIDERS: Family Provider Internal Medicine; PCP Internal Medicine; Referring Provider Physician Assistant Medical; Visit Provider Physician Assistant Medical
DX: I48.0 Paroxysmal atrial fibrillation (principal); Z79.01 Long term (current) use of anticoagulants
CPT/HCPCS: 36415; 85610

== ENCOUNTER 2022-04-16 11:35 | Outpatient (RCR) | payer MEDICARE, OTHER, SELFPAY ==
[2021-06-07 10:13] VITALS: BMI 27.8
[2022-03-07 23:25] VITALS: BMI 29.9
[2022-04-16 13:18] LABS: International Normalized Ratio 2.6; Prothrombin Time (Protime)PT. 27.4 SECONDS (11.7-14.9)
== END 2022-04-16 18:00 | disposition home or self-care (01) ==
LOC: LAB 11:35
PROVIDERS: Family Provider Internal Medicine; PCP Internal Medicine; Referring Provider Physician Assistant Medical; Visit Provider Physician Assistant Medical
DX: I48.0 Paroxysmal atrial fibrillation (principal); Z79.01 Long term (current) use of anticoagulants
CPT/HCPCS: 36415; 85610

== ENCOUNTER 2022-06-04 08:54 | Outpatient (RCR) | payer MEDICARE, OTHER, SELFPAY ==
[2021-06-07 10:13] VITALS: BMI 27.8
[2022-05-08 10:32] VITALS: BMI 29.9
[2022-06-04 09:50] LABS: International Normalized Ratio 2.1; Prothrombin Time (Protime)PT. 22.9 SECONDS (11.7-14.9)
== END 2022-06-06 18:00 | disposition home or self-care (01) ==
LOC: LAB 08:54
PROVIDERS: Family Provider Internal Medicine; PCP Internal Medicine; Referring Provider Physician Assistant Medical; Visit Provider Physician Assistant Medical
DX: I48.0 Paroxysmal atrial fibrillation (principal); Z79.01 Long term (current) use of anticoagulants
CPT/HCPCS: 36415; 85610

== ENCOUNTER 2022-10-03 11:43 | Outpatient (RCR) | payer MEDICARE, OTHER, SELFPAY ==
[2021-06-07 10:13] VITALS: BMI 27.8
[2022-06-07 00:36] VITALS: BMI 29.9
[2022-10-03 13:09] LABS: International Normalized Ratio 2.5; Prothrombin Time (Protime)PT. 26.3 SECONDS (11.7-14.9)
== END 2022-10-05 23:15 | disposition home or self-care (01) ==
LOC: LAB 11:43
PROVIDERS: Internal Medicine Cardiovascular Disease; Family Provider Internal Medicine; PCP Internal Medicine; Referring Provider Physician Assistant Medical; Visit Provider Physician Assistant Medical
DX: I48.0 Paroxysmal atrial fibrillation (principal); Z79.01 Long term (current) use of anticoagulants
CPT/HCPCS: 36415; 85610

== ENCOUNTER 2022-10-30 10:54 | Outpatient (RCR) | payer MEDICARE, OTHER, SELFPAY ==
[2021-06-07 10:13] VITALS: BMI 27.8
[2022-10-05 23:15] VITALS: BMI 29.9
[2022-10-30 12:03] LABS: International Normalized Ratio 1.8; Prothrombin Time (Protime)PT. 20.8 SECONDS (11.7-14.9)
== END 2022-11-04 02:07 | disposition home or self-care (01) ==
LOC: LAB 10:54
PROVIDERS: Family Provider Internal Medicine; PCP Internal Medicine; Referring Provider Physician Assistant Medical; Visit Provider Physician Assistant Medical
DX: I48.0 Paroxysmal atrial fibrillation (principal); Z79.01 Long term (current) use of anticoagulants
CPT/HCPCS: 36415; 85610

== ENCOUNTER 2022-12-04 11:00 | Outpatient (RCR) | payer MEDICARE, OTHER, SELFPAY ==
[2021-06-07 10:13] VITALS: BMI 27.8
[2022-11-04 02:07] VITALS: BMI 29.9
[2022-12-04 11:34] LABS: International Normalized Ratio 1.9; Prothrombin Time (Protime)PT. 22.3 SECONDS (11.7-14.9)
== END 2022-12-04 12:00 | disposition home or self-care (01) ==
LOC: LAB 11:00
PROVIDERS: Family Provider Internal Medicine; PCP Internal Medicine; Visit Provider Internal Medicine Cardiovascular Disease
DX: I48.0 Paroxysmal atrial fibrillation (principal); Z79.01 Long term (current) use of anticoagulants
CPT/HCPCS: 36415; 85610

== ENCOUNTER 2022-12-24 11:17 | Outpatient (RCR) | payer MEDICARE, OTHER, SELFPAY ==
[2021-06-07 10:13] VITALS: BMI 27.8
[2022-12-06 08:16] VITALS: BMI 29.9
[2022-12-24 12:26] LABS: International Normalized Ratio 1.8; Prothrombin Time (Protime)PT. 21.2 SECONDS (11.7-14.9)
== END 2022-12-24 18:00 | disposition home or self-care (01) ==
LOC: LAB 11:17
PROVIDERS: Family Provider Internal Medicine; PCP Internal Medicine; Visit Provider Internal Medicine Cardiovascular Disease
DX: I48.0 Paroxysmal atrial fibrillation (principal); Z79.01 Long term (current) use of anticoagulants
CPT/HCPCS: 36415; 85610

== ENCOUNTER 2023-01-09 11:29 | Outpatient (RCR) | payer MEDICARE, OTHER, SELFPAY ==
[2021-06-07 10:13] VITALS: BMI 27.8
[2023-01-04 22:38] VITALS: BMI 29.9
[2023-01-09 12:09] LABS: International Normalized Ratio 2.8; Prothrombin Time (Protime)PT. 29.5 SECONDS (11.7-14.9)
== END 2023-02-04 18:00 | disposition home or self-care (01) ==
LOC: LAB 11:29
PROVIDERS: Family Provider Internal Medicine; PCP Internal Medicine; Referring Provider Internal Medicine Cardiovascular Disease; Visit Provider Internal Medicine Cardiovascular Disease
DX: I48.0 Paroxysmal atrial fibrillation (principal); Z79.01 Long term (current) use of anticoagulants
CPT/HCPCS: 36415; 85610

== ENCOUNTER 2023-01-31 14:54 | Observation (INO) | payer MEDICARE, OTHER, SELFPAY ==
[2021-06-07 10:13] VITALS: BMI 27.8
[2023-01-31] VITALS (8 sets, daily range): BP systolic 139–155; BP diastolic 55–62; PULSE 50–62; RESP 16–20; TEMP 36.2–36.8; O2SAT 94–99; BMI 29.5; BMI 28.8
--- NOTE | 2023-01-31 14:55 | EKG12_ITS ---
Test Reason : Blood Pressure : / mmHG Vent. Rate : 059 BPM Atrial Rate : 000 BPM P-R Int : 000 ms QRS Dur : 096 ms QT Int : 446 ms P-R-T Axes : 000 000 068 degrees QTc Int : 441 ms Sinus rhythm Nonspecific T wave abnormality Abnormal ECG Confirmed by YULIA COLON, GERA ([id number]), health editor TANIA GRIFFITHS ([id number]) on 02/01/2023 9:16:11 AM Referred By: RAOMNA Confirmed By:GERA BENDER MD
--- NOTE | 2023-01-31 14:55 | CT_ITS ---
STUDY: CT HEAD STROKE PROTOCOL W/O CONTRAST INJECTION REASON FOR EXAM: Male, 88 years old. Neuro deficit, acute, stroke suspected RADIATION DOSAGE (If Supplied By Facility): CTDIvol = ( 44.99 ) mGy, DLP = ( 779.24 ) mGycm TECHNIQUE: Transaxial CT imaging of the brain was performed without administration of intravenous contrast material. Individualized dose optimization techniques were used for this CT. COMPARISON: No relevant priors. FINDINGS: Normal soft tissue structures. Normal calvarium. There is mild cerebral atrophy with widening of the extra-axial spaces and ventricular dilatation. There are areas of decreased attenuation within the white matter tracts of the supratentorial brain, consistent with microvascular disease changes. Normal basal ganglia and thalami. Normal brainstem. Normal cerebellum. There is no intracranial hemorrhage. There are no findings of an acute ischemic infarction. Atherosclerotic calcification of the cavernous portions of the internal carotid arteries bilaterally. Minimal degree of mucosal thickening of the medial ivy of the maxillary sinuses bilaterally. ASPECT score: 10 CT/STROKE Brain/Head without Cont IMPRESSION: Chronic involutional changes of the brain. N.B. : The above Results were Read Back by Isaiha Arevalo MD to Replaced By [facility] and understanding confirmed on 01/31/2023 15:08:32 (ET). Electronically Signed: Isaiah Arevalo MD at 15:09 EDT ,
--- NOTE | 2023-01-31 14:55 | NURSING ---
[id number] STROKE ALERT CALLED
--- NOTE | 2023-01-31 14:56 | CT_ITS ---
STUDY: CTA HEAD AND NECK WITH CONTRAST REASON FOR EXAM: Male, 88 years old. Neuro deficit, acute, stroke suspected RADIATION DOSAGE (If Supplied By Facility): CTDIvol = ( 26.11 ) mGy, DLP = ( 740.60 ) mGycm TECHNIQUE: CT angiography was performed with a multi-detector CT scanner. Data acquisition was obtained from the skull base through the vertex following intravenous administration of IV 100mL [id number]-[id number]. MIP images were reconstructed from the axial data set. Post-processing of the angiographic images was performed, with multiplanar reformation and 3D reconstruction. Individualized dose optimization techniques were used for this CT. COMPARISON: No relevant priors. FINDINGS: Normal bilateral petrous carotid arteries. There is calcified plaque formation of the right cavernous carotid artery, without a cross-sectional luminal stenosis. Normal left cavernous carotid artery with a normal supraclinoid bifurcation. Normal right A1 segments of the anterior cerebral artery. Normal left A1 segments of the anterior cerebral artery. Normal intact anterior communicating artery (ACOM). Normal bilateral A2 segments of the anterior cerebral arteries. Normal right M1 and M2 segments of the middle cerebral arteries, with a normal M1 bifurcation. Normal left M1 and M2 segments of the middle cerebral arteries, with a normal M1 bifurcation. Normal right posterior communicating artery (PCOM). Normal left posterior communicating artery (PCOM). Normal bilateral vertebral arteries. Normal basilar artery with a normal basilar bifurcation. The visualized bilateral superior cerebellar (SCA) arteries are normal. Normal bilateral P1, P2 and visualized P3 segments of the posterior cerebral arteries. There is no demonstrated aneurysm of the point [place] of [place]. 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 A stent is also seen at the origin of the left subclavian artery. Normal origins of the brachiocephalic, left common carotid, and left subclavian arteries. RIGHT CAROTID ARTERIES: Normal right common carotid artery (CCA). Normal right common carotid bulb. There is mild atherosclerotic plaque formation of the origin of the right internal carotid artery with less than 50% cross sectional diameter stenosis. Normal visualized cervical portion of the right internal carotid artery. Normal origin of the right external carotid artery (ECA). LEFT CAROTID ARTERIES: Normal left common carotid artery (CCA). Normal left common carotid bulb. There is mild atherosclerotic plaque formation of the origin of the left internal carotid artery with less than 50% cross sectional diameter stenosis. Normal visualized cervical portion of the left internal carotid artery. Normal origin of the left external carotid artery (ECA). VERTEBRAL ARTERIES: There is enhancement within the bilateral vertebral arteries with a small right vertebral artery, and a dominant left vertebral artery. CT/STROKE CTA Head AND Neck W/Con IMPRESSION: Minimal calcific plaque at the origin of both the right and left internal carotid arteries. N.B. : The above Results were Read Back by Isaiah Arevalo MD to Dr Leon MD, and understanding confirmed on 01/31/2023 15:27:57 (ET). Electronically Signed: Isaiah Arevalo MD at 15:29 EDT ,
[2023-01-31 15:18] LABS: Absolute Lymphocyte Count 1.12 X10^3/uL (0.83-4.51); Absolute Neutrophil Count 4.3 X10^3/uL (2.0-7.7); Basophil# 0.01 X10^3/uL; Basophil% 0.2 % (0-1); Eosinophil# 0.24 X10^3/uL; Eosinophils% 3.8 % (0-5); Hematocrit 33.4 % (40-54); Hemoglobin 10.8 g/dL (13.0-16.5); Lymphocyte # 1.12 X10^3/ul (0.83-4.51); Lymphocyte % 17.6 % (19-41); Mean Corp Hgb Conc 32.3 g/dL (32-36); Mean Corpuscular Hgb 29.6 pg (27.0-32.0); Mean Corpuscular Volume 91.5 fL (80-94); Mean Platelet Vol. 10.4 fl (6.2-12.0); Monocyte# 0.67 X10^3/uL; Monocyte% 10.5 % (0-10); NRBC Flagged by Analyzer 0 % (0-5); Neutrophil # 4.29 X10^3/uL (2.7-7.7); Neutrophil % 67.4 % (47-70); Platelet Count 222 K/mm3 (150-450); RBC Distribution Width CV 14.6 % (11.6-14.6); Red Blood Count 3.65 M/mm3 (4.6-6.2); White Blood Count 6.4 K/mm3 (4.4-11.0)
[2023-01-31 15:29] LABS: Bedside Glucose 128 mg/dL (74-106)
--- NOTE | 2023-01-31 15:33 | ED.RN ---
PER DR. GREENE, WE CAN CANCELLED [facility]
[2023-01-31 15:34] LABS: Prothrombin Time (Protime)PT. 22.7 SECONDS (11.7-14.9)
--- NOTE | 2023-01-31 15:35 | RAD_ITS ---
STUDY: X-RAY CHEST REASON FOR EXAM: Male, 88 years old. Neuro deficit, acute, stroke suspected TECHNIQUE: Single AP portable view of the chest. COMPARISON: Comparison is made with prior study dated March 16, 2021. FINDINGS: EKG electrodes are seen. Mild increased linear markings at the lung bases suggestive of a mild degree of linear scarring. There is no demonstrated pleural abnormality. Sternal cerclage wires and vascular clips are present from a prior sternotomy and coronary artery bypass graft procedure (CABG). Cardiomegaly. Normal mediastinum and leo. Normal visualized pulmonary arteries. There is atherosclerotic tortuosity of the aortic arch and descending thoracic aorta. Evidence of prior endoluminal stenting of the aortic arch. There are diffuse degenerative changes of the visualized thoracic spine. Normal visualized ribs, clavicles, and shoulders. There is no demonstrated abnormality of the visualized soft tissue structures of the upper abdomen. RAD/Chest 1 View IMPRESSION: Mild increased linear markings at the lung bases suggestive of scarring. Electronically Signed: Isaiah Arevalo MD at 15:48 EDT ,
[2023-01-31 15:47] LABS: Anion Gap 7 (5-15); BUN 36 mg/dL (7-18); BUN/Creat Ratio 20.7 RATIO (10-20); Calcium,Total 10.7 mg/dL (8.5-10.1); Chloride 103 mmol/L (98-107); Creatinine, Serum 1.74 mg/dL (0.70-1.30); EST Glomerular Filtration Rate 40 mL/min (>60); Est Glom Filt Rate - Afr Amer 48 mL/min (>60); Estimated Creatinine Clearance 28.94 ml/min; Glucose 112 mg/dL (74-106); Potassium 4.8 mmol/L (3.5-5.1); Sodium Level 133 mmol/L (136-145); Troponin-I HS 13 pg/mL (3.0-78.0)
--- NOTE | 2023-01-31 16:04 | ED.VIS.STROK ---
HPI History of Present Illness Chief Complaint: Stroke Alert Detail of Chief Complaint: Expressive aphasia Informant: patient and spouse/S.O. Onset/Context/Timing Onset: Hours (1300) Context: Sudden Onset Timing: Intermittent (5 to 10 minutes) Quality and Location: Positive for Expressive Aphasia Onset: 1330 Current Severity: Gone Maximum Severity: Moderate Worsened by: Nothing Relieved by: Nothing Associated Symptoms Associated Symptoms: Positive for Headache; Negative for Nausea, Vomiting or Chest Pain Narrative Narrative: Patient is an 88-year-old male with history of peripheral arterial disease, atrial fibrillation on anticoagulant, tachybradycardia syndrome, sarcoidosis and testicular cancer who presents with expressive aphasia that lasted 5 to 10 minutes. Onset 1330. He states he tried to get words to come out and everything was gibberish. By the time the patient arrived he was asymptomatic. Prior similar symptoms: No Recent Illness/Hospitalization: No [facility] Medical History Abnormal stress echo Cellulitis of right lower extremity Chronic acquired lymphedema Chronic anemia Essential (primary) hypertension Expressive aphasia Hypercalcemia Lymphedema of right lower extremity Neurological deficit, transient Nonobstructive atherosclerosis of coronary artery Osteoarthritis Paroxysmal atrial fibrillation Peripheral vascular occlusive disease Pleural effusion PMR (polymyalgia rheumatica) Primary hyperparathyroidism Sarcoidosis Stage 3 chronic kidney disease Swelling of lower extremity Tachy-nubia syndrome Testicular cancer Thoracic aortic aneurysm (TAA) Vitamin D deficiency Home Medications aspirin 81 mg tablet,delayed release (Adult Aspirin Regimen) 81 mg PO QDAY 11/04/17 [History Last Taken 01/07/18] cholecalciferol (vitamin D3) 50 mcg (2,000 unit) capsule 50 mcg PO DAILY 01/03/21 [History Last Taken Unknown] multivitamin 1 tab PO DAILY 01/03/21 [History Last Taken Unknown] omega-3 fatty acids-fish oil 360 mg-1,200 mg capsule (Fish Oil) 1 cap PO DAILY 05/02/22 [History Last Taken Unknown] metoprolol tartrate 25 mg tablet 25 mg PO BID #180 tabs 06/15/22 [Rx Last Taken Unknown] amlodipine 10 mg tablet 10 mg PO DAILY #90 tabs 12/27/22 [Rx Last Taken Unknown] warfarin 5 mg tablet 5 mg PO .COMPLEX 01/31/23 [History Last Taken 01/31/23] Allergy/AdvReac Type Severity Reaction Status Date / Time lisinopril Allergy Severe Itchy red Verified 01/31/23 14:55 hives all over Penicillins [PCN] Allergy Rash Verified 01/31/23 14:55 Sulfa (Sulfonamide Allergy Other Verified 01/31/23 14:55 Antibiotics) clopidogrel [From Plavix] AdvReac rash/itchin Verified 01/31/23 14:55 g hydrochlorothiazide AdvReac rash Verified 01/31/23 14:55 Family History Mother Cancer Brother Diabetes Heart disease PPM Other Arthritis Breast cancer Colon cancer Melanoma Surgical History H/O total hip arthroplasty (03/2017) History of aortic valve repair (03/06/21) History of aorto-femoral bypass (11/2004) History of left heart catheterization (09/19/20) History of open reduction and internal fixation (ORIF) procedure History of orchiectomy, unilateral History of thoracic aortic aneurysm repair (03/06/21) History of thoracotomy Social History (Updated 01/31/23 @ 16:[address] Vin Quintero MD) household members: significant other Smoking Status: Never smoker alcohol intake: current alcohol intake frequency: 0-2 drinks per day Alcohol type: beer, wine and hard liquor substance use type: does not use caffeine: Yes Type: coffee Number of servings: 1 frequency: daily ROS ROS ED Constitutional Constitutional ED: Denies chills, fever(s), subjective or sweats Eyes Eyes: Denies blurry vision or change in vision ENT ENT ED: Denies ear pain or rhinorrhea Cardiovascular Cardiovascular: Denies chest pain or palpitations Respiratory/Chest Respiratory/Chest: Denies cough, dyspnea or dyspnea on exertion Gastrointestinal Gastrointestinal: Denies abdominal pain, nausea or vomiting Genitourinary Genitourinary ED: Denies dysuria, hematuria or urinary frequency Musculoskeletal Musculoskeletal: Denies arthralgias, back pain or myalgias Integumentary Denies rash Neurologic Neurologic: Reports headache(s); Denies paresthesias or weakness Psychiatric Psychiatric: Denies anxiety Endocrine Endocrinology: Denies polydipsia or polyphagia Hematologic/Lymphatic Hematologic/Lymphatic: Reports easy bruising; Denies easy bleeding EXAM Physical Exam Const Vital Signs: 01/31/23 14:55 01/31/23 15:12 01/31/23 15:12 Temperature 97.8 F Temperature Source Temporal Pulse Rate 62 Respiratory Rate 20 H Blood Pressure 154/58 H Blood Pressure Mean 90 Pulse Ox 99 Oxygen Delivery Method Room Air Room Air 01/31/23 15:13 Temperature Temperature Source Pulse Rate 59 L Respiratory Rate 20 H Blood Pressure Blood Pressure Mean Pulse Ox 98 Oxygen Delivery Method Room Air Positive well nourished and well developed General Appearance ED: well developed and NAD HEENT Reports moist mucous membranes Nose: other Other Details: Head is atraumatic normocephalic. Ears normal. Nares patent. Posterior pharynx out erythema or exudate. Uvula midline. No deviation with protrusion. Eyes PERRL and EOMs intact bilaterally Eyes Narrative: There is no nystagmus. General Eye ED: Negative for pale conjunctiva or scleral icterus Neck no lymphadenopathy, supple and no JVD Neck Narrative: There is no carotid bruits noted. Chest Wall inspection of chest normal Resp normal respiratory effort and clear to auscultation bilaterally Cardio no murmurs Rate: bradycardia Rhythm: regular rhythm Heart Sounds: S1 normal and S2 normal GI normal to inspection, nondistended, normoactive bowel sounds, soft to palpation, non-tender, non-distended and no masses Back/Spine no CVA tenderness Neuro oriented x3, CN's II-XII intact bilaterally and no sensory deficits noted [place] Coma Scale: document GCS findings Spontaneous Obeys Commands Oriented 15 Sensorium / Orientation: alert Psych mental status grossly normal Skin no wounds General Skin Exam: Negative for jaundice Lesions: no lesions Rashes: no rashes NIHSS NIHSS Initial: 1a Level of Consciousness: 0 1b LOC Questions (Score 2 if aphasic/stupor): 0 1c LOC Commands (Only score 1st attempt): 0 2 Best Gaze (If aphasic, use reflexive mvmts.): 0 3 Visual: 0 4 Facial Palsy: 0 5 Motor Arm Right (UN = amputation/fusion): 0 5 Motor Arm Left: 0 6 Motor Leg Right: 0 6 Motor Leg Left: 0 7 Limb ataxia (Only + if out of proportion): 0 8 Sensory (Aphasia/stupor=0 or 1, coma=2): 0 9 Best Language: 0 10 Dysarthria (mute, coma=2, intubated=UN): 0 Total Score: 0 MDM MDM MDM Narrative Medical decision making narrative: Presents with symptoms of expressive aphasia. They have resolved. Stroke order set was initiated. Stroke neurologist from [facility] did evaluate patient. Recommended further observation and TIA work-up. History & Record Review Discussion w/independent historian: Patient and Significant other Lab Data Attestation: I reviewed the patient's lab results. Lab results narrative: Patient has mild anemia with normal indices. PT is 22.7 with an INR 2.0. Electrolyte panel reveals a creatinine of 1.74 with a GFR of 4. Troponin is normal. Labs: Laboratory Results - last 24 hr 01/31/23 01/31/23 15:00 15:11 WBC 6.4 RBC 3.65 L Hgb 10.8 L Hct 33.4 L MCV 91.5 MCH 29.6 MCHC 32.3 RDW Std Deviation 50.0 H RDW Coeff of [place] 14.6 Plt Count 222 MPV 10.4 Immature Gran % (Auto) 0.500 Neut % (Auto) 67.4 Lymph % (Auto) 17.6 L [place] % (Auto) 10.5 H Eos % (Auto) 3.8 Baso % (Auto) 0.2 Absolute Neuts (auto) 4.3 Absolute Lymphs (auto) 1.12 Nucleated RBC % 0 PT 22.7 H INR 2.0 APTT 37.0 H Sodium 133 L Potassium 4.8 Chloride 103 Carbon Dioxide 23.0 Anion Gap 7 BUN 36 H Creatinine 1.74 H Estim Creat Clear Calc 28.94 Est GFR (MDRD) Af Amer 48 L Est GFR (MDRD) Non-Af 40 L BUN/Creatinine Ratio 20.7 H Glucose 112 H Calcium 10.7 H Troponin I High Sens 13 POC Glucose 128 H Radiography Chest X-Ray - ED: 1 View and Read by ED Physician (Individually reviewed and read by me as negative. There is what appears to be atelectasis scarring right and left base. Cardiac silhouette size unremarkable. Perihilar region unremarkable. Osseous structures are unremarkable.) Diagnostic Testing: Clinical Impression(s) from Imaging Studies Brain CT 01/31/23 14:55 IMPRESSION: Chronic involutional changes of the brain. N.B. : The above Results were Read Back by Isaiah Arevalo MD to Vin Quintero and understanding confirmed on 01/31/2023 15:08:32 (ET). Electronically Signed: Isaiah Arevalo MD at 15:09 EDT , ADDENDUM: 01/31/23 1516 IMPRESSION: Chronic involutional changes of the brain. N.B. : The above Results were Read Back by Isaiah Arevalo MD to Vin Quintero and understanding confirmed on 01/31/2023 15:08:32 (ET). Electronically Signed: Isaiah Arevalo MD at 15:09 EDT , Head/Neck CTA 01/31/23 14:56 IMPRESSION: Minimal calcific plaque at the origin of both the right and left internal carotid arteries. N.B. : The above Results were Read Back by Isaiah Arevalo MD to Dr Leon MD, and understanding confirmed on 01/31/2023 15:27:57 (ET). Electronically Signed: Isaiah Arevalo MD at 15:29 EDT , ADDENDUM: 01/31/23 1536 IMPRESSION: Minimal calcific plaque at the origin of both the right and left internal carotid arteries. N.B. : The above Results were Read Back by Isaiah Arevalo MD to Dr Leon MD, and understanding confirmed on 01/31/2023 15:27:57 (ET). Electronically Signed: Isaiah Arevalo MD at 15:29 EDT , Chest X-Ray 01/31/23 15:35 IMPRESSION: Mild increased linear markings at the lung bases suggestive of scarring. Electronically Signed: Isaiah Arevalo MD at 15:48 EDT , Discharge Plan Triage Chief Complaint: Stroke Alert ED Provider: Vin Quintero Dx/Rx/DC Orders Clinical Impression: Essential (primary) hypertension, Expressive aphasia, [employer] (current) use of anticoagulants, Paroxysmal atrial fibrillation, Peripheral vascular occlusive disease, Sarcoidosis Prescriptions: No Action aspirin [Adult Aspirin Regimen] 81 mg tablet,delayed release (DR/EC) 81 mg PO QDAY cholecalciferol (vitamin D3) 50 mcg (2,000 unit) capsule 50 mcg PO DAILY multivitamin Tablet 1 tab PO DAILY metoprolol tartrate 25 mg tablet 25 mg PO BID Qty: 180 3RF omega-3 fatty acids-fish oil [Fish Oil] 360-1,200 mg capsule 1 cap PO DAILY amlodipine 10 mg tablet 10 mg PO DAILY Qty: 90 3RF warfarin 5 mg tablet 5 mg PO .COMPLEX Protocol: Dose Management Condition: Saturday Dose/Route: 5 mg Instruction: 1 x 5 mg tablet Condition: Saturday Dose/Route: 7.5 mg Instruction: 1.5 x 5 mg tablets Condition: Saturday Dose/Route: 7.5 mg Instruction: 1.5 x 5 mg tablets Condition: Saturday Dose/Route: 5 mg Instruction: 1 x 5 mg tablet Condition: Dose/Route: 5 mg Instruction: 1 x 5 mg tablet Condition: Saturday Dose/Route: 5 mg Instruction: 1 x 5 mg tablet Condition: Saturday Dose/Route: 5 mg Instruction: 1 x 5 mg tablet Protocol Text: Adjustment Start Date: Saturday01/09/23 INR Value: 2.8 INR Date: 01/09/23 Recheck Date: 01/23/23 Rx Instructions: 5 mg PO take 1.5 tablet (7.5 mg) on Saturday/saturday/saturday, and take 1 tab by mouth the other days; or as directed; Primary Care Provider: Isabelle Ratliff Referrals: Isabelle Ratliff MD [Primary Care Provider] - Disposition Disposition: Acute Care Hospital [facility]
--- NOTE | 2023-01-31 16:16 | PCM.HP.STD ---
HPI - General General Date of Admission: 01/31/23 Date of Service: 01/31/23 Chief Complaint: stroke like symptoms HPI Narrative TYRON COON, is a 88 M with a PMH as outlined who was admitted via the ED on 01/31/2023 with a complaint of expressive aphasia. Last known well was ~ 1:30pm on day of admission. His expressive aphasia lasted about 5-10 mins. He was unable to get his words out; symptoms had resolved by the time he arrived in the ED. He is on coumadin for afib, and his INR was 2 on admission. He denied any weakness or numbness in any extremities or any facial droop. He had not had symptoms like this before. Review of systems otherwise negative. Vitals in the ED with pulse rate of 59, respirate rate of 20 and oxygen saturation of 98% on room air. CBC showed hemoglobin of 10.8 with WBC of 6.4 and platelets of 222. INR was 2. Chemistry was significant for sodium of 133, potassium of 4.8 and Cr of 1.74. baseline Cr is ~ 1.6. Chest x-ray showed mild increased linear markings at the lung bases suggestive of scarring. CT of the brain showed chronic involutional changes and CTA of the head and neck showed mild calcific plaque at the origin of both the right and left internal carotid arteries. Patient was reviewed by [facility] telestroke neurologist and was not deemed a candidate for tenecteplase. He has been admitted to be managed for strokelike symptoms to rule out CVA. [facility] Medical History Abnormal stress echo Cellulitis of right lower extremity Chronic acquired lymphedema Chronic anemia Essential (primary) hypertension Expressive aphasia Hypercalcemia Lymphedema of right lower extremity Neurological deficit, transient Nonobstructive atherosclerosis of coronary artery Osteoarthritis Paroxysmal atrial fibrillation Peripheral vascular occlusive disease Pleural effusion PMR (polymyalgia rheumatica) Primary hyperparathyroidism Sarcoidosis Stage 3 chronic kidney disease Swelling of lower extremity Tachy-nubia syndrome Testicular cancer Thoracic aortic aneurysm (TAA) Vitamin D deficiency Home Medications aspirin 81 mg tablet,delayed release (Adult Aspirin Regimen) 81 mg PO QDAY 11/04/17 [History Last Taken 01/07/18] cholecalciferol (vitamin D3) 50 mcg (2,000 unit) capsule 50 mcg PO DAILY 01/03/21 [History Last Taken Unknown] multivitamin 1 tab PO DAILY 01/03/21 [History Last Taken Unknown] omega-3 fatty acids-fish oil 360 mg-1,200 mg capsule (Fish Oil) 1 cap PO DAILY 05/02/22 [History Last Taken Unknown] amlodipine 10 mg tablet 10 mg PO DAILY #90 tabs 12/27/22 [Rx Last Taken Unknown] apixaban 2.5 mg tablet (Eliquis) 2.5 mg PO BID #60 tabs 02/01/23 [Rx Last Taken Unknown] atorvastatin 40 mg tablet 40 mg PO QHS #30 tabs 02/01/23 [Rx Last Taken Unknown] metoprolol tartrate 25 mg tablet 12.5 mg (1/2 x 25 mg) PO DAILY #30 tabs 02/01/23 [Rx Last Taken Unknown] Allergy/AdvReac Type Severity Reaction Status Date / Time lisinopril Allergy Severe Itchy red Verified 01/31/23 14:55 hives all over Penicillins [PCN] Allergy Rash Verified 01/31/23 14:55 Sulfa (Sulfonamide Allergy Other Verified 01/31/23 14:55 Antibiotics) clopidogrel [From Plavix] AdvReac rash/itchin Verified 01/31/23 14:55 g hydrochlorothiazide AdvReac rash Verified 01/31/23 14:55 Family History (Updated 01/31/23 @ 17:26 by Ritu Dexter) Mother Cancer Brother Diabetes Heart disease PPM Other Arthritis Breast cancer Colon cancer Surgical History H/O total hip arthroplasty (03/2017) History of aortic valve repair (03/06/21) History of aorto-femoral bypass (11/2004) History of left heart catheterization (09/19/20) History of open reduction and internal fixation (ORIF) procedure History of orchiectomy, unilateral History of thoracic aortic aneurysm repair (03/06/21) History of thoracotomy Social History household members: significant other Smoking Status: Never smoker alcohol intake: current alcohol intake frequency: 0-2 drinks per day Alcohol type: beer, wine and hard liquor substance use type: does not use caffeine: Yes Type: coffee Number of servings: 1 frequency: daily ROS Constitutional Constitutional: Denies anorexia, chills, fatigue, fever(s), malaise or weakness Eyes Eyes: Denies change in vision ENT HEENT: Denies dysphagia Cardiovascular Cardiovascular: Denies chest pain, dyspnea on exertion, edema, lightheadedness, orthopnea, palpitations, paroxysmal nocturnal dyspnea, rapid heart rate or syncope Respiratory/Chest Respiratory/Chest: Denies cough, dyspnea, shortness of breath at rest or shortness of breath with exertion Gastrointestinal Gastrointestinal: Denies abdominal pain, nausea or vomiting Genitourinary Genitourinary: Denies burning urination or dysuria Musculoskeletal Musculoskeletal: Denies arthralgias or back pain Neurologic Neurologic: Reports abnormal speech; Denies confusion, focal weakness, headache(s), numbness, paresthesias, seizures or syncope Psychiatric Psychiatric: Denies anxiety or depression Vital Signs Vital Signs Vital Signs: 01/31/23 14:55 01/31/23 15:12 01/31/23 15:12 Temperature 97.8 F Temperature Source Temporal Pulse Rate 62 Respiratory Rate 20 H Blood Pressure 154/58 H Blood Pressure Mean 90 Pulse Ox 99 Oxygen Delivery Method Room Air Room Air 01/31/23 15:13 Temperature Temperature Source Pulse Rate 59 L Respiratory Rate 20 H Blood Pressure Blood Pressure Mean Pulse Ox 98 Oxygen Delivery Method Room Air Weight Weight: 194 lb 0.108 oz Body Mass Index (BMI) 29.5 Physical Exam Const alert, oriented x3 and no apparent distress General Appearance: cooperative HEENT normocephalic, head/scalp atraumatic, hearing grossly normal bilaterally and moist oral mucous membranes Mouth: oral and palatal mucosa normal Eyes PERRL, EOMs intact bilaterally and conjunctivae normal Neck no lymphadenopathy and supple Resp normal respiratory effort, no retractions, no use of accessory muscles and clear to auscultation bilaterally Cardio regular rate, regular rhythm, S1 normal heart sound, S2 normal heart sound and no murmurs GI normal to inspection, nondistended, normoactive bowel sounds, soft to palpation, non-tender and non-distended Extremity normal to inspection, full ROM and no clubbing, cyanosis or edema Neuro oriented x3, CN's II-XII intact bilaterally, moves all extremities and no focal motor deficits Sensorium / Orientation: awake and alert Motor Exam: strength 5/5 throughout Psych affect normal Results Lab / Micro Data 02/01/23 05:05 02/01/23 05:05 Labs: Laboratory Results - last 24 hr 01/31/23 15:00: WBC 6.4, RBC 3.65 L, Hgb 10.8 L, Hct 33.4 L, MCV 91.5, MCH 29.6, MCHC 32.3, RDW Std Deviation 50.0 H, RDW Coeff of [place] 14.6, Plt Count 222, MPV 10.4, Immature Gran % (Auto) 0.500, Neut % (Auto) 67.4, Lymph % (Auto) 17.6 L, [place] % (Auto) 10.5 H, Eos % (Auto) 3.8, Baso % (Auto) 0.2, Absolute Neuts (auto) 4.3, Absolute Lymphs (auto) 1.12, Nucleated RBC % 0, PT 22.7 H, INR 2.0, APTT 37.0 H, Sodium 133 L, Potassium 4.8, Chloride 103, Carbon Dioxide 23.0, Anion Gap 7, BUN 36 H, Creatinine 1.74 H, Estim Creat Clear Calc 28.94, Est GFR (MDRD) Af Amer 48 L, Est GFR (MDRD) Non-Af 40 L, BUN/Creatinine Ratio 20.7 H, Glucose 112 H, Calcium 10.7 H, Troponin I High Sens 13 01/31/23 15:11: POC Glucose 128 H Radiology Impression Brain CT 01/31/23 14:55 IMPRESSION: Chronic involutional changes of the brain. N.B. : The above Results were Read Back by [facility] and understanding confirmed on 01/31/2023 15:08:32 (ET). Electronically Signed: Isaiah Arevalo MD at 15:09 EDT , ADDENDUM: 01/31/23 1516 IMPRESSION: Chronic involutional changes of the brain. N.B. : The above Results were Read Back by Isaiah Arevalo MD to [facility] and understanding confirmed on 01/31/2023 15:08:32 (ET). Electronically Signed: Isaiah Arevalo MD at 15:09 EDT , Head/Neck CTA 01/31/23 14:56 IMPRESSION: Minimal calcific plaque at the origin of both the right and left internal carotid arteries. N.B. : The above Results were Read Back by Isaiah Arevalo MD to Dr Leon MD, and understanding confirmed on 01/31/2023 15:27:57 (ET). Electronically Signed: Isaiah Arevalo MD at 15:29 EDT , ADDENDUM: 01/31/23 1536 IMPRESSION: Minimal calcific plaque at the origin of both the right and left internal carotid arteries. N.B. : The above Results were Read Back by Isaiah Arevalo MD to Dr Leon MD, and understanding confirmed on 01/31/2023 15:27:57 (ET). Electronically Signed: Isaiah Arevalo MD at 15:29 EDT , Chest X-Ray 01/31/23 15:35 IMPRESSION: Mild increased linear markings at the lung bases suggestive of scarring. Electronically Signed: Isaiah Arevalo MD at 15:48 EDT , Assessment & Plan Assessment/Plan (1) Expressive aphasia: PLAN: Plan #Expressive aphasia symptoms had resolved by the time patient came in to the ED. NIHSS is 0 CT of the brain showed no acute intracranial pathology CTA head and neck showed minimal calcific plaque at the origin of both the right and left internal carotid artery admit to PCU PO aspirin, high intensity statin. for 2D echo and MRI check A1C #Atrial fibrillation on coumadin. INR is 2. on metoprolol DVT prophylaxis: on coumadin Code status: full code Patient and his significant other counseled extensively about different types of CODE STATUS including full code, DNR CCA and DNR CCA. Patient elects to be full code. Total lnsf-ss-phah time 17 minutes. Charges/Coding Visit Charges Inpatient E&M: 70889 Init Hosp L2 Procedures Hospitalists Procedures: 33364 Advncd Care Plan 30 Min
--- NOTE | 2023-01-31 16:30 | NURSING ---
PCU OBS KORAM EXPRESSIVE APHASIA
--- NOTE | 2023-01-31 17:46 | ECHOCS_ITS ---
Reason For Study: TIA/CVA Procedure This was a 2D Doppler, Color Flow transthoracic echocardiogram. The study was technically difficult. Exam performed portable in patient room. Left Ventricle Normal LV size. Left ventricular systolic function is normal. The estimated ejection fraction is 55 %. Stage 2 diastolic dysfunction. No regional wall motion abnormalities noted. Right Ventricle Normal RV size. Normal systolic function. Atria Normal left atrium. Normal right atrium. Bubble contrast study negative for right to left interatrial shunt. Mitral Valve Normal mitral valve. Tricuspid Valve Normal tricuspid valve. Aortic Valve Trisinus/trileaflet aortic valve. Pulmonic Valve The pulmonic valve is not well visualized. Great Vessels Normal aortic root. The pulmonary artery is normal size. Normal inferior vena cava. Pericardium/Pleural No pericardial effusion. Medication Diluted definity 2ml given slow IV push to enhance endocardial definition. Performed a rapid injection of agitated mix of 9 cc saline and 1cc air to assess for atrial septal defect. MMode/2D Measurements & Calculations LVIDd: 5.7 cm IVSd: 1.1 cm LVOT diam: 2.1 cm LVIDs: 3.8 cm LVPWd: 0.99 cm RVDd: 3.8 cm FS: 33.3 % LVOT area: 3.5 cm2 Ao root diam: 3.4 cm LAV(MOD-bp): 56.1 ml LVAd ap4: 32.4 cm2 LAV(MOD-bp) Indexed: 28.1 ml/m2 LVLd ap4: 7.7 cm LAV(MOD-sp2): 57.7 ml EDV(MOD-sp4): 109.9 ml LAV(MOD-sp4): 55.9 ml EDV(sp4-el): 115.2 ml LVAs ap4: 20.8 cm2 LVLs ap4: 6.8 cm ESV(MOD-sp4): 52.1 ml ESV(sp4-el): 54.3 ml EF(MOD-sp4): 52.5 % EF(sp4-el): 52.8 % SV(MOD-sp4): 57.7 ml SV(sp4-el): 60.9 ml LA A4 area: 19.9 cm2 LA dimension(2D): 4.0 cm RA A4 area: 19.4 cm2 Time Measurements MV dec time: 0.20 sec Doppler Measurements & Calculations MV E max hank: 98.1 cm/sec Lat Peak E' Hank: 13.5 cm/sec Med Peak E' Hank: 8.5 cm/sec MV A max hank: 47.6 cm/sec E/E' lat: 7.3 E/E' med: 11.5 MV E/A: 2.1 Ao V2 max: 121.3 cm/sec LV V1 max: 100.0 cm/sec SV(LVOT): 92.0 ml Ao max P.9 mmHg LV V1 max P.0 mmHg Ao V2 mean: 79.6 cm/sec LV V1 mean P.9 mmHg Ao mean P.9 mmHg LV V1 mean: 63.7 cm/sec Ao V2 VTI: 29.1 cm LV V1 VTI: 25.9 cm AV (velocity ratio): 0.89 [place](I,D): 3.2 cm2 [place](V,D): 2.9 cm2 PA V2 max: 84.9 cm/sec ECHO/Echo Complete W/ Contrast Interpretation Summary Normal LV size. Left ventricular systolic function is normal. The estimated ejection fraction is 55 %. Stage 2 diastolic dysfunction. Bubble contrast study negative for right to left interatrial shunt. Contrast injection was performed. Ordering Physician: Ni Taylor Referring Physician: SKIP LIANG Performed By: Mary Huff RDCS
--- NOTE | 2023-01-31 17:46 | MRI_ITS ---
STUDY: MRI BRAIN WITHOUT CONTRAST REASON FOR EXAM: Male, 88 years old. Expressive aphasia, RESOLVED NOW TECHNIQUE: Standardized multiplanar fat and water weighted pulse sequences were obtained. COMPARISON: Same day head CT and CTA HEMISPHERES, CEREBELLUM AND BRAINSTEM: 1. The cerebral parenchyma, ventricular system, subarachnoid spaces have normal configuration. There is a normal gyral pattern. There is normal de anda/white differentiation. No midline shift.. 2. Moderate to severe subcortical and periventricular white matter FLAIR hypoattenuation compatible with chronic microvascular ischemic change.. 3. No intraparenchymal mass, hemorrhage, or acute territorial infarct. 4. The cerebellum, brainstem, basilar and suprasellar cisterns have normal appearance. No Chiari malformation. PITUITARY: Infundibulum and pituitary have normal configuration. Midline structures appear normal. CSF SPACES: Appropriate for age. No hydrocephalus. Basal cisterns are patent. VESSELS: 1. There are normal flow voids noted in the great vessels at the skull base ORBITS AND PARANASAL SINUSES: 1. Bilateral ocular lens replacements. 2. Paranasal sinuses are clear. BONY ELEMENTS: Bony elements of the cranial vault, facial skeleton and skull base have normal appearance. SCALP AND SOFT TISSUES: Normal appearance of the soft tissues of the scalp and the visualized face MRI/Brain without Contrast IMPRESSION: 1. No intracranial mass, hemorrhage, or acute territorial infarct. 2. No radiographically significant sinus disease. Electronically Signed: Torsten Wolff MD at 20:11 EDT ,
[2023-01-31 18:42] LABS: Hemoglobin A1c 5.6 % (3.8-5.6)
[2023-02-01 02:11] VITALS: BMI 28.8
[2023-02-01 03:56] VITALS: BP 132/57; PULSE 54; RESP 16; TEMP 36.8; O2SAT 97
[2023-02-01 06:17] LABS: Absolute Lymphocyte Count 0.78 X10^3/uL (0.83-4.51); Absolute Neutrophil Count 2.9 X10^3/uL (2.0-7.7); Basophil# 0.02 X10^3/uL; Basophil% 0.4 % (0-1); Eosinophil# 0.25 X10^3/uL; Eosinophils% 5.5 % (0-5); Hematocrit 28.3 % (40-54); Hemoglobin 9.3 g/dL (13.0-16.5); Lymphocyte # 0.78 X10^3/ul (0.83-4.51); Lymphocyte % 17.2 % (19-41); Mean Corp Hgb Conc 32.9 g/dL (32-36); Mean Corpuscular Hgb 30.2 pg (27.0-32.0); Mean Corpuscular Volume 91.9 fL (80-94); Monocyte# 0.57 X10^3/uL; Monocyte% 12.6 % (0-10); NRBC Flagged by Analyzer 0 % (0-5); Neutrophil % 63.9 % (47-70); Platelet Count 208 K/mm3 (150-450); RBC Distribution Width CV 14.7 % (11.6-14.6); RBC Distribution Width SD 49.8 fl (35.1-43.9); Red Blood Count 3.08 M/mm3 (4.6-6.2); White Blood Count 4.5 K/mm3 (4.4-11.0)
[2023-02-01 07:07] LABS: Anion Gap 6 (5-15); BUN 33 mg/dL (7-18); Calcium,Total 9.9 mg/dL (8.5-10.1); Chloride 107 mmol/L (98-107); Cholesterol 174 mg/dL (200); Creatinine, Serum 1.57 mg/dL (0.70-1.30); EST Glomerular Filtration Rate 45 mL/min (>60); Est Glom Filt Rate - Afr Amer 54 mL/min (>60); Estimated Creatinine Clearance 32.07 ml/min; Glucose 94 mg/dL (74-106); High Density Lipoprotein 46 mg/dL; Potassium 4.4 mmol/L (3.5-5.1); Sodium Level 134 mmol/L (136-145); Triglycerides 107 mg/dL; Very Low Density Lipoprotein 21 mg/dL (5-40)
[2023-02-01 08:01] VITALS: O2SAT 95
[2023-02-01 09:24] VITALS: BP 127/59; PULSE 50; RESP 16; TEMP 36.6; O2SAT 95
[2023-02-01] MEDS: Aspirin E.C. 81 MG Tablet PO (09:36)
[2023-02-01 09:37] VITALS: BP 127/59; PULSE 50
[2023-02-01] MEDS: Metoprolol Tartrate 25 MG Tablet PO (09:37)
[2023-02-01] MEDS: Multivitamins,Therapeutic Tablet 1 TABLET PO (09:37)
[2023-02-01] MEDS: Cholecalciferol (VIT D3) 25 MCG TABLET (1,000 UNITS) 50 MCG PO (09:37)
--- NOTE | 2023-02-01 14:04 | DS.PCM_ITS ---
Providers Date of Admission: 01/31/23 Date of Discharge: 02/01/23 Primary Care Physician: Dr. Skip Liang MD Reason For Visit: TIA Diagnosis Discharge Diagnosis (1) Expressive aphasia: Status: Acute Code(s): R47.01 - Aphasia Plan #Expressive aphasia * symptoms had resolved by the time patient came in to the ED. * NIHSS is 0 * CT of the brain showed no acute intracranial pathology * CTA head and neck showed minimal calcific plaque at the origin of both the right and left internal carotid artery * admit to PCU * PO aspirin, high intensity statin. * for 2D echo and MRI * check A1C * #Atrial fibrillation * on coumadin. INR is 2. on metoprolol * DVT prophylaxis: on coumadin Code status: full code * Medications at Discharge Home Medications aspirin 81 mg tablet,delayed release (Adult Aspirin Regimen) 81 mg PO QDAY 11/04/17 cholecalciferol (vitamin D3) 50 mcg (2,000 unit) capsule 50 mcg PO DAILY 01/03/21 multivitamin 1 tab PO DAILY 01/03/21 omega-3 fatty acids-fish oil 360 mg-1,200 mg capsule (Fish Oil) 1 cap PO DAILY 05/02/22 amlodipine 10 mg tablet 10 mg PO DAILY #90 tabs 12/27/22 apixaban 2.5 mg tablet (Eliquis) 2.5 mg PO BID #60 tabs 02/01/23 atorvastatin 40 mg tablet 40 mg PO QHS #30 tabs 02/01/23 metoprolol tartrate 25 mg tablet 12.5 mg (1/2 x 25 mg) PO DAILY #30 tabs 02/01/23 Hospital Course Operations None Procedures 2-D Echocardiogram Summary of Care Provided Minutes Spent on Discharge: 47 Hospital Course: TYRON COON, is a 88 M with a PMH as outlined who was admitted via the ED on 01/31/2023 with a complaint of expressive aphasia. Last known well was ~ 1:30pm on day of admission. His expressive aphasia lasted about 5-10 mins. He was unable to get his words out; symptoms had resolved by the time he arrived in the ED. He is on coumadin for afib, and his INR was 2 on admission. He denied any weakness or numbness in any extremities or any facial droop. He had not had symptoms like this before. Review of systems otherwise negative. Vitals in the ED with pulse rate of 59, respirate rate of 20 and oxygen saturation of 98% on room air. CBC showed hemoglobin of 10.8 with WBC of 6.4 and platelets of 222. INR was 2. Chemistry was significant for sodium of 133, potassium of 4.8 and Cr of 1.74. baseline Cr is ~ 1.6. Chest x-ray showed mild increased linear markings at the lung bases suggestive of scarring. CT of the brain showed chronic involutional changes and CTA of the head and neck showed mild calcific plaque at the origin of both the right and left internal carotid arteries. Patient was reviewed by [facility] telestroke neurologist and was not deemed a candidate for tenecteplase. He was admitted to be managed for strokelike symptoms to rule out CVA. He had an MRI of the brain which showed no evidence of a stroke. 2D echo showed EF of 55% and normal LV systolic function with stage II diastolic dysfunction and negative bubble study. [facility] neurology was consulted and reviewed patient. Neurology recommended that since patient not have a TIA while she was in the Coumadin, recommendation would be to switch patient to Eliquis. Patient was therefore switched to Eliquis 2.5 mg twice daily. He was also started on high intensity statin. He is to follow-up with his primary care doctor within 1 to 2 weeks. Of note, patient was also noted to be mildly bradycardic while in the hospital. He was on metoprolol 25 mg twice daily and this was cut down to metoprolol XL 12.5 mg daily. Patient seen and examined prior to discharge. He felt well and had no complaints. He had an uneventful night. Review of systems otherwise negative. Labs and vitals reviewed. Medication reviewed and reconciled. Physical Exam Const alert, oriented x3 and no apparent distress General Appearance: cooperative, comfortable and well kempt HEENT normocephalic, head/scalp atraumatic, hearing grossly normal bilaterally and moist oral mucous membranes Mouth: oral and palatal mucosa normal Eyes PERRL, EOMs intact bilaterally and conjunctivae normal Neck no lymphadenopathy and supple Resp normal respiratory effort, no retractions, no use of accessory muscles and clear to auscultation bilaterally Cardio regular rate, regular rhythm, S1 normal heart sound, S2 normal heart sound and no murmurs GI normal to inspection, nondistended, normoactive bowel sounds, soft to palpation, non-tender and non-distended Extremity normal to inspection, full ROM and no clubbing, cyanosis or edema Neuro oriented x3, CN's II-XII intact bilaterally, moves all extremities and no focal motor deficits Sensorium / Orientation: awake and alert Motor Exam: strength 5/5 throughout Psych affect normal Weight / BMI Weight Weight: 189 lb 6 oz Body Mass Index (BMI) 28.8 ABG / Lab / Microbiology Data 02/01/23 05:05 02/01/23 05:05 Laboratory: Laboratory Results - last 24 hr 01/31/23 15:00: WBC 6.4, RBC 3.65 L, Hgb 10.8 L, Hct 33.4 L, MCV 91.5, MCH 29.6, MCHC 32.3, RDW Std Deviation 50.0 H, RDW Coeff of [place] 14.6, Plt Count 222, MPV 10.4, Immature Gran % (Auto) 0.500, Neut % (Auto) 67.4, Lymph % (Auto) 17.6 L, Centre % (Auto) 10.5 H, Eos % (Auto) 3.8, Baso % (Auto) 0.2, Absolute Neuts (auto) 4.3, Absolute Lymphs (auto) 1.12, Nucleated RBC % 0, PT 22.7 H, INR 2.0, APTT 37.0 H, Sodium 133 L, Potassium 4.8, Chloride 103, Carbon Dioxide 23.0, Anion Gap 7, BUN 36 H, Creatinine 1.74 H, Estim Creat Clear Calc 28.94, Est GFR (MDRD) Af Amer 48 L, Est GFR (MDRD) Non-Af 40 L, BUN/Creatinine Ratio 20.7 H, Glucose 112 H, Hemoglobin A1c 5.6, Calcium 10.7 H, Troponin I High Sens 13 01/31/23 15:11: POC Glucose 128 H 02/01/23 05:05: WBC 4.5, RBC 3.08 L, Hgb 9.3 L, Hct 28.3 L, MCV 91.9, MCH 30.2, MCHC 32.9, RDW Std Deviation 49.8 H, RDW Coeff of [place] 14.7 H, Plt Count 208, MPV 11.0, Immature Gran % (Auto) 0.400, Neut % (Auto) 63.9, Lymph % (Auto) 17.2 L, Centre % (Auto) 12.6 H, Eos % (Auto) 5.5 H, Baso % (Auto) 0.4, Absolute Neuts (auto) 2.9, Absolute Lymphs (auto) 0.78 L, Nucleated RBC % 0, Sodium 134 L, Potassium 4.4, Chloride 107, Carbon Dioxide 21.0, Anion Gap 6, BUN 33 H, Creatinine 1.57 H, Estim Creat Clear Calc 32.07, Est GFR (MDRD) Af Amer 54 L, Est GFR (MDRD) Non-Af 45 L, BUN/Creatinine Ratio 21.0 H, Glucose 94, Calcium 9.9, Triglycerides 107, Cholesterol 174, LDL Cholesterol 107, VLDL Cholesterol 21, HDL Cholesterol 46 Radiography Diagnostic Testing: Radiology Impression Brain CT 01/31/23 14:55 IMPRESSION: Chronic involutional changes of the brain. N.B. : The above Results were Read Back by Isaiah Arevalo MD to Vin Quintero and understanding confirmed on 01/31/2023 15:08:32 (ET). Electronically Signed: Isaiah Arevalo MD at 15:09 EDT , ADDENDUM: 01/31/23 1516 IMPRESSION: Chronic involutional changes of the brain. N.B. : The above Results were Read Back by Isaiah Arevalo MD to Vin Quintero and understanding confirmed on 01/31/2023 15:08:32 (ET). Electronically Signed: Isaiah Arevalo MD at 15:09 EDT , Head/Neck CTA 01/31/23 14:56 IMPRESSION: Minimal calcific plaque at the origin of both the right and left internal carotid arteries. N.B. : The above Results were Read Back by Isaiah Arevalo MD to Dr Leon MD, and understanding confirmed on 01/31/2023 15:27:57 (ET). Electronically Signed: Isaiah Arevalo MD at 15:29 EDT , ADDENDUM: 01/31/23 1536 IMPRESSION: Minimal calcific plaque at the origin of both the right and left internal carotid arteries. N.B. : The above Results were Read Back by Isaiah Arevalo MD to Dr Leon MD, and understanding confirmed on 01/31/2023 15:27:57 (ET). Electronically Signed: Isaiah Arevalo MD at 15:29 EDT , Chest X-Ray 01/31/23 15:35 IMPRESSION: Mild increased linear markings at the lung bases suggestive of scarring. Electronically Signed: Isaiah Arevalo MD at 15:48 EDT , Brain MRI 01/31/23 17:46 IMPRESSION: 1. No intracranial mass, hemorrhage, or acute territorial infarct. 2. No radiographically significant sinus disease. Electronically Signed: Torsten Wolff MD at 20:11 EDT , Echocardiogram 01/31/23 17:46 Interpretation Summary Normal LV size. Left ventricular systolic function is normal. The estimated ejection fraction is 55 %. Stage 2 diastolic dysfunction. Bubble contrast study negative for right to left interatrial shunt. Contrast injection was performed. Ordering Physician: Ni Taylor Referring Physician: SKIP LIANG Performed By: Mary Huff RDCS D/C Instructions Discharge Diet: Low fat / Low cholesterol Discharge Activity: Return to Normal Activity Weight Bearing Status: Weight bearing as tolerated Call your doctor if you observe: Fever of 101 or Higher, Shortness of breath, Dizziness, Swelling in the ankles, Chest pain and Increased palpitations (irregular heartbeat) Meaningful Use Info Meaningful Use Diagnoses (Choose all that apply): None applicable Discharge Plan Admission Admit Date/Time: 01/31/23 16:29 Primary Reason for Your Visit: GLORIA Attending Provider: Ni Taylor Primary Care Provider: Skip Liang Instructions Patient Instructions: GLORIA Lambert Additional Instructions / Restrictions: warfarin discontinued; patient started on eliquis. To take first dose of eliquis this evening. Metoprolol dose also cut in half from 25mg bid of metoprolol tartrate to 12.5mg daily of metoprolol tartrate due to bradycardia. Discharge Orders/Prescriptions Prescriptions: New Eliquis 2.5 mg tablet 2.5 mg PO BID Qty: 60 2RF metoprolol tartrate 25 mg tablet 12.5 mg PO DAILY Qty: 30 1RF atorvastatin 40 mg tablet 40 mg PO QHS Qty: 30 1RF Continued aspirin [Adult Aspirin Regimen] 81 mg tablet,delayed release (DR/EC) 81 mg PO QDAY cholecalciferol (vitamin D3) 50 mcg (2,000 unit) capsule 50 mcg PO DAILY multivitamin Tablet 1 tab PO DAILY omega-3 fatty acids-fish oil [Fish Oil] 360-1,200 mg capsule 1 cap PO DAILY amlodipine 10 mg tablet 10 mg PO DAILY Qty: 90 3RF Discontinued metoprolol tartrate 25 mg tablet 25 mg PO BID Qty: 180 3RF warfarin 5 mg tablet 5 mg PO .COMPLEX Protocol: Dose Management Condition: Saturday Dose/Route: 5 mg Instruction: 1 x 5 mg tablet Condition: Saturday Dose/Route: 7.5 mg Instruction: 1.5 x 5 mg tablets Condition: Saturday Dose/Route: 7.5 mg Instruction: 1.5 x 5 mg tablets Condition: Saturday Dose/Route: 5 mg Instruction: 1 x 5 mg tablet Condition: Dose/Route: 5 mg Instruction: 1 x 5 mg tablet Condition: Saturday Dose/Route: 5 mg Instruction: 1 x 5 mg tablet Condition: Saturday Dose/Route: 5 mg Instruction: 1 x 5 mg tablet Protocol Text: Adjustment Start Date: Saturday01/09/23 INR Value: 2.8 INR Date: 01/09/23 Recheck Date: 01/23/23 Rx Instructions: 5 mg PO take 1.5 tablet (7.5 mg) on Saturday/saturday/saturday, and take 1 tab by mouth the other days; or as directed; Referrals / Follow Up: Skip Liang MD [Primary Care Provider] - Within 2 Weeks Disposition Disposition (needs filled in before D/C Order can be placed): Home, Self Care Charges/Coding Visit Charges Inpatient E&M: 71499 Disch Hosp >30min
[2023-02-01 14:45] VITALS: BP 121/48; PULSE 42; RESP 16; TEMP 36.8; O2SAT 96
[2023-02-01 14:55] VITALS: BMI 28.8
[2023-02-01 14:56] VITALS: BMI 28.8
== END 2023-02-01 15:17 | disposition home or self-care (01) ==
LOC: ED 16:31 → PCU 17:16
PROVIDERS: Admitting Provider Student in an Organized Health Care Education/Training Program; Emergency Provider Emergency Medicine; PCP Internal Medicine; Visit Provider Student in an Organized Health Care Education/Training Program
DX: R47.01 Aphasia (principal); M35.3 Polymyalgia rheumatica; I73.9 Peripheral vascular disease, unspecified; I48.0 Paroxysmal atrial fibrillation; N18.30 Chronic kidney disease, stage 3 unspecified; I25.10 Atherosclerotic heart disease of native coronary artery without angina pectoris; Z79.82 Long term (current) use of aspirin; Z79.01 Long term (current) use of anticoagulants; D86.9 Sarcoidosis, unspecified; I12.9 Hypertensive chronic kidney disease with stage 1 through stage 4 chronic kidney disease, or unspecified chronic kidney disease; E55.9 Vitamin D deficiency, unspecified; Z79.899 Other long term (current) drug therapy
CPT/HCPCS: 36415; 70450; 70496; 70498; 70551; 71045; 80048; 80061; 82962; 83036; 84484; 85025; 85610; 85730; 93005; 93306; 94762; 99221; 99285; Q9957; Q9967; A4216; C8929; G0378

== ENCOUNTER → 2023-11-28 | Outpatient (CLI) | payer MEDICARE, OTHER, SELFPAY ==
[2021-06-07 10:13] VITALS: BMI 27.8
--- NOTE | 2023-11-28 11:00 | ART_ITS ---
Reason For Study: PAD Procedure A bilateral lower extremity continuous wave Doppler with analog waveform analysis and ankle brachial indexes. Left Segmental Pressures Left brachial= 135mmHg. Left posterior tibial artery = 163mmHg. Left dorsalis pedis artery = 148mmHg. Left digit = 143 mmHg. The left posterior tibial artery waveforms are triphasic. The left dorsalis pedis waveforms are triphasic. Right Segmental Pressures Right brachial= 139mmHg. Right posterior tibial artery = 175mmHg. Right dorsalis pedis artery = 171mmHg. Right digit = 137 mmHg. The right posterior tibial artery waveforms are triphasic. The right dorsalis pedis waveforms are triphasic. Indices The right ankle brachial index by the posterior tibial artery is 1.26. The right ankle brachial index by the dorsalis pedis is 1.23. The right digital-brachial index is 0.99. The left ankle brachial index by the posterior tibial artery is 1.17. The left ankle brachial index by the dorsalis pedis is 1.06. The left digital-brachial index is 1.03. VL/Ankle Brachial Index Interpretation Summary Right ABBIE 1.26, normal. TBI and Doppler/PVR waveforms of the right ankle normal at rest. Left ABBIE 1.17, normal. TBI and Doppler/PVR waveforms of the left ankle normal a t rest. Ordering Physician: Isabelle Liang Referring Physician: ISABELLE LIANG MD Performed By: Jaret Agudelo, RVT
== END | disposition home or self-care (01) ==
LOC: CVS 10:58
PROVIDERS: PCP Internal Medicine; Referring Provider Internal Medicine; Visit Provider Internal Medicine
DX: I73.9 Peripheral vascular disease, unspecified (principal)
CPT/HCPCS: 93922